=== PATIENT | female | born 1935 | race African-American/Black ===

== ENCOUNTER 2018-02-11 17:38 | Emergency (ER) | payer MEDICARE, BC ==
[2018-02-11 19:26] LABS: #Basophils 0.1 thou/uL (0.0-0.2); #Eosinphils 0.1 thou/uL (0.0-0.7); #Lymphocytes 1.1 thou/uL (1.20-3.40); #Monocytes 0.6 thou/uL (0.11-0.59); #Neutrophils 6.2 thou/uL (1.40-6.50); %Basophils 0.6 % (0.0-1.0); %Eosinophils 1.7 % (0.0-10.0); %Lymphocytes 13.5 % (21.0-51.0); %Monocytes 7.2 % (0.0-10.0); %Neutrophils 76.9 % (42.0-75.0); Hemoglobin 13.9 g/dL (12.0-16.0); Mean Corpuscular HGB CONC 33.1 g/dL (32.0-36.0); Mean Corpuscular Hemoglobin 31.1 pg (27.0-31.0); Platelet Count 347 thou/uL (130-400); RBC Distribution Width 12.6 % (11.5-14.5); Red Blood Cell (RBC) Count 4.48 mill/uL (4.20-5.40); White Blood Cell (WBC) Count 8.1 thou/uL (4.8-10.8)
[2018-02-11 19:47] LABS: ALT (SGPT) 26 U/L (8-55); AST (SGOT) 39 U/L (5-34); Alkaline Phosphatase 122 U/L (40-150); Anion Gap 14 mmol/L (10-20); BUN (Urea Nitrogen) 28 mg/dL (9.8-20.1); Bilirubin, Total 0.3 mg/dL (0.2-1.2); Calc. Creatinine Clearance 0 mL/min (70-130); Calcium 10.2 mg/dL (7.8-10.44); Carbon Dioxide 29 mmol/L (23-31); Chloride 104 mmol/L (98-107); Estimated GFR-MDRD 59; Globulin 3.8 g/dL (2.4-3.5); Glucose 142 mg/dL (83-110); Potassium 3.9 mmol/L (3.5-5.1); Protein, Total 7.8 g/dL (6.0-8.3); Sodium 143 mmol/L (136-145)
[2018-02-11 19:50] LABS: CKMB 4.7 ng/mL (0-6.6); Troponin I Less than 0.010 ng/mL (< 0.028)
--- NOTE | 2018-02-11 19:52 | RAD ---
PORTABLE UPRIGHT FRONTAL CHEST RADIOGRAPH 02/11/18 COMPARISON: 08/31/16. HISTORY: Altered mental status. FINDINGS: Inspiration is shallow, leading to crowding of the bronchopulmonary vasculature. There is mild increa sed density in the right infrahilar region which may signify vascular prominence or volume loss. Foca l infiltrate is less likely. No pneumothorax, lobar consolidation or alveolar edema. IMPRESSION: Shallow inspiration with mild increased density in the medial right lung base/right cardiophrenic ang le. No lobar consolidation or alveolar edema. POS: [facility]
--- NOTE | 2018-02-11 20:01 | CT ---
CT OF BRAIN PERFORMED WITHOUT CONTRAST ENHANCEMENT: 02/11/18 HISTORY: Altered mental status. COMPARISON: 05/14/09 exam and 03/13/12 study. The ventricular and cisternal system shows some mild atrophy. There is decreased attenuation of the p eriventricular white matter. Consistent with chronic ischemic white matter change. There is no signs of intracerebral hemorrhage or extra-axial fluid collections. The mastoid air cells and visualized si nuses appear clear. IMPRESSION: No acute intracranial abnormalities. POS: [facility]
[2018-02-11 20:26] LABS: Bilirubin Negative (Negative); Blood, Urine Negative (Negative); Clarity CLOUDY (Clear); Glucose, Urine (Dipstick) Negative (Negative); Leukocyte Small (Negative); Nitrite Negative (Negative); Protein, Urine (Dipstick) Negative (Neg-Trace); Specific Gravity, Urine 1.015 (1.002-1.036); Urobilinogen 0.2 mg/dL (0.2-1.0)
[2018-02-11 20:28] LABS: Bacteria/HPF 1+ HPF (None Seen); Hyaline Casts/LPF 0-3 HYALINE CAST LPF (0-3 Hyaline); Pathc Cast-AUWi Flag 0.14 (0-2.49)
[2018-02-11 20:31] LABS: RBC/HPF 0-3 HPF (0-3); Renal Epithelial None Seen HPF (0-3); Transitional Epithelial NONE SEEN HPF (0-3)
[2018-02-11] MEDS ORDERED: cefTRIAXone\\ROCEPHIN 2 GM VIAL ONE (21:03)
[2018-02-11] MEDS ORDERED: Lidocaine 1% (PF) 30 ML VIAL ONE (21:03)
[2018-02-11] MEDS ORDERED: cefTRIAXone\\ROCEPHIN 1 GM VIAL ONE (21:11)
== END 2018-02-11 22:10 ==
LOC: ERS 17:38
DX: N39.0 Urinary tract infection, site not specified (principal); G30.9 Alzheimer's disease, unspecified; F02.80 Dementia in other diseases classified elsewhere, unspecified severity, without behavioral disturbance, psychotic disturbance, mood disturbance, and anxiety; I10 Essential (primary) hypertension; F41.9 Anxiety disorder, unspecified; Z79.82 Long term (current) use of aspirin; Z79.899 Other long term (current) drug therapy; Z79.891 Long term (current) use of opiate analgesic
CPT/HCPCS: 36415; 51701; 70450; 71045; 80053; 81003; 81015; 82553; 84484; 85025; 87040; 87077; 87086; 87186; 93005; 96372; A4353; J0696; J2001

== ENCOUNTER 2018-03-25 18:51 | Emergency (ER) | payer MEDICARE, BC ==
[2018-03-25 20:26] LABS: #Basophils 0.1 thou/uL (0.0-0.2); #Eosinphils 0.2 thou/uL (0.0-0.7); #Lymphocytes 1.6 thou/uL (1.20-3.40); #Monocytes 0.6 thou/uL (0.11-0.59); #Neutrophils 5.1 thou/uL (1.40-6.50); %Basophils 0.8 % (0.0-1.0); %Eosinophils 2.7 % (0.0-10.0); %Monocytes 7.5 % (0.0-10.0); %Neutrophils 67.9 % (42.0-75.0); Hemoglobin 12.7 g/dL (12.0-16.0); Mean Corpuscular HGB CONC 32.7 g/dL (32.0-36.0); Mean Corpuscular Hemoglobin 30.8 pg (27.0-31.0); Mean Corpuscular Volume 94.1 fL (78.0-98.0); Mean Platelet Volume 6.7 fL (7.4-10.4); Platelet Count 330 thou/uL (130-400); RBC Distribution Width 12.7 % (11.5-14.5); Red Blood Cell (RBC) Count 4.13 mill/uL (4.20-5.40); White Blood Cell (WBC) Count 7.4 thou/uL (4.8-10.8)
--- NOTE | 2018-03-25 20:34 | RAD ---
PORTABLE CHEST 03/25/18 PROVIDED CLINICAL HISTORY: Syncope. FINDINGS: Comparison 02/11/18. The lungs are hypoinflated, limiting evaluation. The cardiac silhouette appears enlarged which may be at least in part on the basis of technical factors. Bibasilar parenchymal opacities may reflect subs egmental atelectasis or infiltrate. No evidence for pneumothorax or large effusion. IMPRESSION: Hypoinflated exam. POS: [facility]
[2018-03-25 20:44] LABS: ALT (SGPT) 13 U/L (8-55); AST (SGOT) 17 U/L (5-34); Albumin 3.8 g/dL (3.4-4.8); Alkaline Phosphatase 118 U/L (40-150); Anion Gap 12 mmol/L (10-20); BUN (Urea Nitrogen) 27 mg/dL (9.8-20.1); Bilirubin, Total 0.2 mg/dL (0.2-1.2); Calc. Creatinine Clearance 0 mL/min (70-130); Carbon Dioxide 33 mmol/L (23-31); Chloride 101 mmol/L (98-107); Estimated GFR-MDRD 36; Globulin 3.2 g/dL (2.4-3.5); Glucose 192 mg/dL (83-110); Potassium 4.4 mmol/L (3.5-5.1); Sodium 142 mmol/L (136-145)
[2018-03-25 21:51] LABS: Bilirubin Negative (Negative); Blood, Urine Negative (Negative); Clarity CLEAR (Clear); Glucose, Urine (Dipstick) Negative (Negative); Leukocyte Small (Negative); Nitrite Negative (Negative); Protein, Urine (Dipstick) Negative (Neg-Trace); Urobilinogen 0.2 mg/dL (0.2-1.0); pH, Urine 6.5 (5.0-9.0)
[2018-03-25 21:53] LABS: Bacteria/HPF None Seen HPF (None Seen); Hyaline Casts/LPF 0-3 HYALINE CAST LPF (0-3 Hyaline); Pathc Cast-AUWi Flag 2.76 (0-2.49); WBC/HPF 0-3 HPF (0-3)
--- NOTE | 2018-03-25 22:16 | CT ---
CT BRAIN 03/25/18 PROVIDED CLINICAL HISTORY: Syncope. FINDINGS: Comparison 02/11/18. The ventricular system appears normal in size and morphology. There is no evidence for intracranial hemorrhage or mass effect. Chronic microvascular ischemic changes involving the cerebral white matte r are redemonstrated. The extracranial soft tissues and osseous structures demonstrate no evidence fo r an acute process. IMPRESSION: No evidence for intracranial hemorrhage or mass effect. POS: [facility]
== END 2018-03-25 23:33 ==
LOC: ERS 18:51
DX: R55 Syncope and collapse (principal); I10 Essential (primary) hypertension; G30.9 Alzheimer's disease, unspecified; F02.80 Dementia in other diseases classified elsewhere, unspecified severity, without behavioral disturbance, psychotic disturbance, mood disturbance, and anxiety; F03.90 Unspecified dementia, unspecified severity, without behavioral disturbance, psychotic disturbance, mood disturbance, and anxiety; F41.9 Anxiety disorder, unspecified; Z79.82 Long term (current) use of aspirin; Z79.899 Other long term (current) drug therapy
CPT/HCPCS: 36415; 70450; 71045; 80053; 81003; 81015; 84484; 85025; 93005

== ENCOUNTER 2018-04-19 10:31 | Emergency (ER) | payer MEDICARE, BC ==
[2018-04-19 11:55] LABS: #Basophils 0.1 thou/uL (0.0-0.2); #Lymphocytes 1.4 thou/uL (1.20-3.40); #Monocytes 0.6 thou/uL (0.11-0.59); #Neutrophils 9.5 thou/uL (1.40-6.50); %Basophils 0.5 % (0.0-1.0); %Eosinophils 0.3 % (0.0-10.0); %Lymphocytes 12.2 % (21.0-51.0); %Monocytes 5.1 % (0.0-10.0); %Neutrophils 81.9 % (42.0-75.0); Hemoglobin 13.6 g/dL (12.0-16.0); Mean Corpuscular HGB CONC 31.8 g/dL (32.0-36.0); Mean Corpuscular Hemoglobin 30.1 pg (27.0-31.0); Mean Corpuscular Volume 94.8 fL (78.0-98.0); Mean Platelet Volume 7.1 fL (7.4-10.4); Platelet Count 340 thou/uL (130-400); RBC Distribution Width 12.6 % (11.5-14.5); Red Blood Cell (RBC) Count 4.52 mill/uL (4.20-5.40); White Blood Cell (WBC) Count 11.6 thou/uL (4.8-10.8)
[2018-04-19 12:13] LABS: Bilirubin Negative (Negative); Blood, Urine Negative (Negative); Clarity CLEAR (Clear); Glucose, Urine (Dipstick) Negative (Negative); Leukocyte Trace (Negative); Nitrite Negative (Negative); Protein, Urine (Dipstick) Negative (Neg-Trace); Urobilinogen 0.2 mg/dL (0.2-1.0)
[2018-04-19 12:16] LABS: Bacteria/HPF None Seen HPF (None Seen); Hyaline Casts/LPF 4-6 HYALINE CAST LPF (0-3 Hyaline); Pathc Cast-AUWi Flag 1.16 (0-2.49); Squamous Epithelial 0-3 HPF (0-3); WBC/HPF None Seen HPF (0-3)
[2018-04-19 12:20] LABS: ALT (SGPT) 18 U/L (8-55); AST (SGOT) 40 U/L (5-34); Albumin 4.3 g/dL (3.4-4.8); Alkaline Phosphatase 122 U/L (40-150); Anion Gap 13 mmol/L (10-20); BUN (Urea Nitrogen) 33 mg/dL (9.8-20.1); Bilirubin, Total 0.5 mg/dL (0.2-1.2); Calc. Creatinine Clearance 0 mL/min (70-130); Calcium 10.5 mg/dL (7.8-10.44); Carbon Dioxide 30 mmol/L (23-31); Chloride 101 mmol/L (98-107); Estimated GFR-MDRD 39; Globulin 3.6 g/dL (2.4-3.5); Glucose 150 mg/dL (83-110); Protein, Total 7.9 g/dL (6.0-8.3); Sodium 139 mmol/L (136-145)
--- NOTE | 2018-04-19 12:57 | RAD ---
PORTABLE CHEST: Date: 04/19/18 HISTORY: Low grade fever, hypoxia. COMPARISON: 03/25/18. FINDINGS: Heart size is borderline. There are bibasilar atelectatic lung changes seen. No signs of failure. IMPRESSION: Bibasilar atelectasis. POS: [facility]
== END 2018-04-19 13:21 ==
LOC: ERS 10:31
DX: F03.90 Unspecified dementia, unspecified severity, without behavioral disturbance, psychotic disturbance, mood disturbance, and anxiety (principal); I12.9 Hypertensive chronic kidney disease with stage 1 through stage 4 chronic kidney disease, or unspecified chronic kidney disease; N18.9 Chronic kidney disease, unspecified; F41.9 Anxiety disorder, unspecified; E11.9 Type 2 diabetes mellitus without complications; Z79.82 Long term (current) use of aspirin; Z79.899 Other long term (current) drug therapy
CPT/HCPCS: 51701; 71045; 80053; 81003; 81015; 83605; 84484; 85025; 87804; 93005; A4353

== ENCOUNTER 2018-05-15 09:09 | Inpatient (IN) | payer MEDICARE, BC ==
--- NOTE | 2018-05-15 09:52 | RAD ---
SINGLE VIEW CHEST: Date: 05/15/18 COMPARISON: 04/19/18. HISTORY: Right-sided facial drooping with slurred speech and altered mental status. FINDINGS: Single view of the chest shows a normal sized cardiomediastinal silhouette. There is no evidence of c onsolidation, mass, or pleural effusion. The bones are unremarkable. IMPRESSION: No evidence of acute cardiopulmonary disease. POS: [facility]
[2018-05-15 10:03] LABS: Bilirubin Negative (Negative); Blood, Urine Negative (Negative); Clarity CLOUDY (Clear); Glucose, Urine (Dipstick) 100 mg/dL (Negative); Leukocyte Negative (Negative); Nitrite Negative (Negative); Protein, Urine (Dipstick) Trace mg/dL (Neg-Trace); Urobilinogen 0.2 mg/dL (0.2-1.0)
[2018-05-15 10:08] LABS: ALT (SGPT) 21 U/L (8-55); AST (SGOT) 20 U/L (5-34); Acetaminophen Less than 6.0 mcg/mL (10.0-30.0); Albumin 3.7 g/dL (3.4-4.8); Alcohol Less than 10 mg/dL (Less than 10); Alkaline Phosphatase 123 U/L (40-150); Anion Gap 13 mmol/L (10-20); BUN (Urea Nitrogen) 19 mg/dL (9.8-20.1); Bilirubin, Total 0.2 mg/dL (0.2-1.2); CK (CPK) 56 U/L (29-168); Calc. Creatinine Clearance 0 mL/min (70-130); Calcium 9.7 mg/dL (7.8-10.44); Carbon Dioxide 27 mmol/L (23-31); Chloride 103 mmol/L (98-107); Estimated GFR-MDRD 49; Globulin 3.2 g/dL (2.4-3.5); Glucose 220 mg/dL (83-110); Potassium 4.3 mmol/L (3.5-5.1); Protein, Total 6.9 g/dL (6.0-8.3); Salicylate Less than 8.0 mg/dL (15.0-30.0); Sodium 139 mmol/L (136-145)
[2018-05-15 10:11] LABS: Amphetamine Not Detected (NotDetected); Barbiturates Screen Not Detected (NotDetected); Benzodiazepine Screen Not Detected (NotDetected); Cocaine Metabolite Screen Not Detected (NotDetected); Medtox Control Line Valid? VALID (VALID); Medtox Reader # READER 4; Methadone Not Detected (NotDetected); Methamphetamine Not Detected (NotDetected); Opiate Screen Not Detected (NotDetected); Oxycodone Screen Not Detected (NotDetected); Phencyclidine (PCP) Not Detected (NotDetected); THC/Cannabinoid Screen Not Detected (NotDetected); Tricyclic Screen Not Detected (NotDetected)
[2018-05-15 10:45] LABS: #Lymphocytes 0.5 thou/uL (1.20-3.40); #Monocytes 0.7 thou/uL (0.11-0.59); #Neutrophils 7.9 thou/uL (1.40-6.50); %Basophils 0.3 % (0.0-1.0); %Eosinophils 0.2 % (0.0-10.0); %Lymphocytes 5.2 % (21.0-51.0); %Monocytes 7.7 % (0.0-10.0); %Neutrophils 86.7 % (42.0-75.0); Hemoglobin 12.8 g/dL (12.0-16.0); Mean Corpuscular HGB CONC 32.7 g/dL (32.0-36.0); Mean Corpuscular Hemoglobin 30.4 pg (27.0-31.0); Mean Corpuscular Volume 92.9 fL (78.0-98.0); Mean Platelet Volume 7.3 fL (7.4-10.4); Platelet Count 303 thou/uL (130-400); RBC Distribution Width 12.6 % (11.5-14.5); Red Blood Cell (RBC) Count 4.22 mill/uL (4.20-5.40); White Blood Cell (WBC) Count 9.1 thou/uL (4.8-10.8)
--- NOTE | 2018-05-15 10:48 | CT ---
HEAD CT WITHOUT CONTRAST: Date: 05/15/18 HISTORY: Altered mental status. Right-sided facial droop. Stroke alert. COMPARISON: 03/25/18. FINDINGS: No parenchymal hemorrhage or extra-axial hematoma. No midline shift. Basilar cisterns are patent. Age -appropriate atrophy. Cortical rubio-white matter differentiation is preserved. No evidence of hydroce phalus. Stable white matter Hypointensities due to chronic small vessel ischemic change. Calvarium is intact. Adequate aeration of the mastoid air cells. There is sphenoid sinus disease. Cav ernous carotid atherosclerosis is noted. IMPRESSION: No acute intracranial process. Results of study discussed with Dr. Umanzor on 05/15/18 at 0952 hours. CODE CR. POS: [facility]
[2018-05-15 10:53] LABS: INR-International Normal Ratio 1.1; Prothrombin Time 13.8 SEC (12.0-14.7)
[2018-05-15 13:43] LABS: Lactic Acid 2.7 mmol/L (0.5-2.2)
[2018-05-15] MEDS ORDERED: Ondansetron PF 4 MG/2 ML Vial IVP PRN (13:52)
[2018-05-15] MEDS ORDERED: Ondansetron ODT 4 MG TAB PO PRN (13:52)
[2018-05-15] MEDS ORDERED: Acetaminophen 325 MG TAB PO PRN (13:53)
[2018-05-15] MEDS ORDERED: Sodium Chloride 0.9% 1,000 ML IV SCH (14:00)
[2018-05-15] MEDS ORDERED: Senokot S 8.6-50 MG TAB PO PRN (15:51)
[2018-05-15] MEDS ORDERED: Bisacodyl 5 MG TAB PO PRN (15:51)
[2018-05-15] MEDS: Sodium Chloride 0.9% 1,000 ML IV SCH (16:01)
[2018-05-15 16:11] VITALS: BMI 27.5
[2018-05-15] MEDS: Mirtazapine 15 MG TAB PO SCH (20:44)
[2018-05-15] MEDS ORDERED: Ciprofloxacin 500 MG TAB PO SCH (21:00)
--- NOTE | 2018-05-15 23:15 | HP ---
CHIEF COMPLAINT: Right-sided facial droop and slurred speech. HISTORY OF PRESENT ILLNESS: The patient is an 83-year-old female who is a [facility] resident who has a history of dementia, limited history, since the patient is unable to provide any history, there is no family member around, who was sent to the ER for evaluation for right-sided facial droop and slurred speech. Per EMS, it was also noted that the patient had a headache. However, EMS reported that the patient was alert and oriented x1, which they report is the baseline for her. In the ER, she was evaluated for possible stroke. However, due to her dementia, doing an NIH score was limited. The patient, however, was able to move all 4 extremities and the ER physician did not think that she had any acute processes in regard for stroke. A CT head was negative in the ER and also she was out of the window period for any other intervention. PAST MEDICAL HISTORY: 1. She has a history of dementia. 2. Diabetes, type 2, controlled. 3. Chronic UTIs. 4. Hypertension. PAST SURGICAL HISTORY: Unable to obtain since the patient is unable to provide that. SOCIAL HISTORY: Per records no history of alcohol use, drug use, or smoking history. She is currently a [facility] resident. I do not know what her code status is currently. REVIEW OF SYSTEMS: Unable to obtain. MEDICATIONS: 1. She is on risperidone 0.25 mg daily. 2. MiraLAX 17 g p.o. daily. 3. Cipro 500 mg once per day for 7 days. 4. Namenda 10 mg b.i.d. 5. Gabapentin 300 mg t.i.d. 6. Colace 100 mg daily. 7. Remeron 15 mg daily. 8. Cartia 120 mg daily. 9. Aspirin 81 mg daily. ALLERGIES: NO KNOWN DRUG ALLERGIES. PHYSICAL EXAMINATION: VITAL SIGNS: As of the following; temperature of 98.7, pulse 97, respiratory rate 20, saturation 97% on room air, blood pressure 143/83. GENERAL: She is awake, alert, oriented to self. CV: S1, S2 present. No murmurs, rubs, or gallops. HEENT: Normocephalic, atraumatic. Pupils are equal and reactive to light. LUNGS: Clear to auscultation. No rhonchi or wheezes noted. ABDOMEN: Soft, nontender. Bowel sounds are present x2. EXTREMITIES: No edema. Pedal pulses are present x2. NEUROVASCULAR: She is able to move all 4 extremities. She is alert and oriented only to self. SKIN: No cuts, lesions, or bruises noted. LABORATORY RESULTS: Her urine is completely normal. Chemistry; sodium of 139, potassium of 4.3, BUN of 19, creatinine of 1.26, glucose of 220, lactic acid of 2.7. Troponin x2 were negative. Hematology; WBC of 9.1, hemoglobin of 12.8, hematocrit of 39.2, platelets of 303. The patient had a CT head, which was negative. She also had a chest x-ray which did not indicate any acute abnormalities. ASSESSMENT AND PLAN: The patient is a very pleasant 83-year-old female who is admitted to the hospital for right facial droop. 1. Dehydration. The patient did have an elevated lactic acid. However, the urine that was collected in the ER was normal. Upon reviewing her medication records, she was on ciprofloxacin. We will clarify with the [facility] if she was recently treated for a urinary tract infection. Clinically, she appears to be at baseline, however, her NIH score is limited due to her dementia. CT head was negative. May consider getting an MRI brain for further evaluation. 2. Diabetes. We will continue to monitor Accu-Cheks before meals and at bedtime. 3. Hypertension. We will continue home medications. 4. Dementia. We will ask family in regard to patient's code status. 5. Deep venous thrombosis prophylaxis. We will put the patient on subcu heparin. Job ID: [id number]
[2018-05-16] MEDS: Sodium Chloride 0.9% 1,000 ML IV SCH ×2 (02:03→14:10)
[2018-05-16] MEDS ORDERED: traMADol HCl 50 MG TAB PO PRN (08:08)
[2018-05-16] MEDS ORDERED: Potassium Chloride 20 MEQ TAB PO SCH (08:30)
[2018-05-16] MEDS: risperiDONE 0.25 MG TAB PO SCH ×2 (08:38→20:06)
[2018-05-16] MEDS: Polyethylene Glycol 3350 17 GM Packet PO SCH (08:38)
[2018-05-16] MEDS: Magnesium Oxide 400 MG TAB PO SCH ×2 (08:38→20:09)
[2018-05-16] MEDS: Gabapentin 300 MG CAP PO SCH ×3 (08:38→20:08)
[2018-05-16] MEDS: Multivitamin W/ Minerals 1 TAB PO SCH (08:38)
[2018-05-16] MEDS: Venlafaxine HCl XR 150 MG CAP PO SCH (08:39)
[2018-05-16] MEDS: Aspirin Chewable 81 MG TAB PO SCH (08:39)
[2018-05-16] MEDS: Acetaminophen 325 MG TAB PO PRN (08:39)
[2018-05-16 08:41] LABS: #Basophils 0.1 thou/uL (0.0-0.2); #Lymphocytes 0.9 thou/uL (1.20-3.40); %Basophils 0.7 % (0.0-1.0); %Eosinophils 0.7 % (0.0-10.0); %Lymphocytes 13.3 % (21.0-51.0); %Monocytes 13.7 % (0.0-10.0); %Neutrophils 71.6 % (42.0-75.0); Hemoglobin 13.1 g/dL (12.0-16.0); Mean Corpuscular HGB CONC 32.7 g/dL (32.0-36.0); Mean Corpuscular Hemoglobin 30.7 pg (27.0-31.0); Mean Corpuscular Volume 93.8 fL (78.0-98.0); Mean Platelet Volume 7.2 fL (7.4-10.4); Platelet Count 288 thou/uL (130-400); RBC Distribution Width 12.4 % (11.5-14.5); Red Blood Cell (RBC) Count 4.28 mill/uL (4.20-5.40)
[2018-05-16] MEDS ORDERED: Prevnar 13-Val Conj/PF 0.5 ML SYRINGE IM ONE (09:00)
[2018-05-16 09:01] LABS: Anion Gap 14 mmol/L (10-20); BUN (Urea Nitrogen) 11 mg/dL (9.8-20.1); Calc. Creatinine Clearance 47 mL/min (70-130); Calcium 8.6 mg/dL (7.8-10.44); Carbon Dioxide 25 mmol/L (23-31); Chloride 99 mmol/L (98-107); Estimated GFR-MDRD 71; Glucose 162 mg/dL (83-110); Potassium 3.1 mmol/L (3.5-5.1); Sodium 135 mmol/L (136-145)
--- NOTE | 2018-05-16 12:19 | PDOC.PN ---
- Subjective Encounter Start Date: 05/16/18 Encounter Start Time: 09:20 -: old records requested/rev Patient seen and examined. No new complaints. No overnight events - Objective Resuscitation Status - Order Detail: 05/15/18 15:51 Resuscitation Status Routine Resuscitation Status: FULL: Full Resuscitation MAR Reviewed: Yes Vital Signs & Weight: Vital Signs (12 hours) Temp Pulse Resp BP Pulse Ox 05/16/18 07:31 97.6 F 79 20 133/74 93 L 05/16/18 04:00 97.4 F L 93 18 148/79 H 92 L Weight Weight 145 lb 8 oz I&O: 05/15/18 05/16/18 05/17/18 06:59 06:59 06:59 Intake Total 401 Balance 401 Result Diagrams: 05/16/18 07:45 05/16/18 07:45 Phys Exam - Physical Examination Constitutional: NAD HEENT: PERRLA, moist MMs, sclera anicteric Neck: no JVD, supple Respiratory: no wheezing, no rales, no rhonchi Cardiovascular: RRR, no significant murmur, no rub Gastrointestinal: soft, non-tender, no distention Musculoskeletal: no edema, pulses present Neurological: non-focal, normal sensation Lymphatic: no nodes Psychiatric: normal affect, A&O x 3 Skin: no rash, normal turgor Dx/Plan (1) Dehydration Code(s): E86.0 - DEHYDRATION Status: Acute (2) Lactic acidosis Code(s): E87.2 - ACIDOSIS Status: Acute (3) Alzheimer's dementia Code(s): G30.9 - ALZHEIMER'S DISEASE, UNSPECIFIED; F02.80 - DEMENTIA IN OTH DISEASES CLASSD ELSWHR W/O BEHAVRL DISTURB Status: Chronic (4) Anxiety and depression Code(s): F41.9 - ANXIETY DISORDER, UNSPECIFIED; F32.9 - MAJOR DEPRESSIVE DISORDER, SINGLE EPISODE, UNSPECIFIED Status: Chronic - Plan cont current plan of care * medication reviewed as below * symptomatic treatment * stable for discharge back to [facility]. Review of Systems - Review of Systems Other: not reliable due to dementia - Medications/Allergies Allergies/Adverse Reactions: Allergies Allergy/AdvReac Type Severity Reaction Status Date / Time No Known Drug Allergies Allergy Verified 05/15/18 16:20 Medications: Current Medications Acetaminophen (Tylenol) 650 mg PO Q4H PRN PRN Reason: Headache/Fever/Mild Pain (1-3) Last Admin: 05/16/18 08:39 Dose: 650 mg Aspirin (Aspirin Chewable) 81 mg PO DAILY [facility] Last Admin: 05/16/18 08:39 Dose: 81 mg Bisacodyl (Dulcolax) 10 mg PO DAILYPRN PRN PRN Reason: Constipation Cholecalciferol (Vitamin D3) 5,000 units PO DAILY [facility] Last Admin: 05/16/18 09:39 Dose: 5,000 units Diltiazem HCl (Cardizem Cd) 120 mg PO QPM-[facility] Last Admin: 05/15/18 17:17 Dose: 120 mg Docusate Sodium (Colace) 100 mg PO [facility] Gabapentin (Neurontin) 300 mg PO TID [facility] Last Admin: 05/16/18 08:38 Dose: 300 mg Galantamine Hydrobromide (Razadyne) 16 mg PO QPM-[facility] Last Admin: 05/15/18 17:18 Dose: 16 mg Sodium Chloride (Normal Saline 0.9%) 1,000 mls @ 100 mls/hr IV .Q10H [facility] Last Admin: 05/16/18 02:03 Dose: 1,000 mls Iron/Minerals/Multivitamins (Theragran M) 1 tab PO DAILY [facility] Last Admin: 05/16/18 08:38 Dose: 1 tab Magnesium Oxide (Magnesium Oxide) 400 mg PO BID [facility] Last Admin: 05/16/18 08:38 Dose: 400 mg Memantine (Namenda) 10 mg PO BID[facility] Last Admin: 05/16/18 08:38 Dose: 10 mg Mirtazapine (Remeron) 15 mg PO [facility] Last Admin: 05/15/18 20:44 Dose: 15 mg Polyethylene Glycol (Miralax) 17 gm PO DAILY [facility] Last Admin: 05/16/18 08:38 Dose: 17 gm Potassium Chloride (K-Dur) 20 meq PO TID-[facility] Risperidone (Risperidone) 0.25 mg PO BID [facility] Last Admin: 05/16/18 08:38 Dose: 0.25 mg Senna/Docusate Sodium (Senokot S) 2 tab PO BID PRN PRN Reason: Constipation Sodium Chloride (Flush - Normal Saline) 10 ml IVF Q12HR [facility] Last Admin: 05/16/18 08:39 Dose: 10 ml Sodium Chloride (Flush - Normal Saline) 10 ml IVF PRN PRN PRN Reason: Saline Flush Tramadol HCl (Ultram) 50 mg PO Q6H PRN PRN Reason: PAIN >4 Venlafaxine HCl (Effexor Xr) 150 mg PO DAILY [facility] Last Admin: 05/16/18 08:39 Dose: 150 mg
[2018-05-16] MEDS: Potassium Chloride 20 MEQ TAB PO SCH ×2 (14:10→16:55)
[2018-05-16] MEDS: Mirtazapine 15 MG TAB PO SCH (20:08)
[2018-05-16] MEDS: Docusate 100 MG CAP PO SCH (20:09)
[2018-05-17] MEDS: Sodium Chloride 0.9% 1,000 ML IV SCH (02:30)
[2018-05-17] MEDS: Acetaminophen 325 MG TAB PO PRN ×2 (05:50→18:43)
[2018-05-17] MEDS: Polyethylene Glycol 3350 17 GM Packet PO SCH (08:07)
[2018-05-17] MEDS: Multivitamin W/ Minerals 1 TAB PO SCH (08:07)
[2018-05-17] MEDS: Potassium Chloride 20 MEQ TAB PO SCH ×3 (08:07→17:13)
[2018-05-17] MEDS: Venlafaxine HCl XR 150 MG CAP PO SCH (08:07)
[2018-05-17] MEDS: risperiDONE 0.25 MG TAB PO SCH ×2 (08:08→20:12)
[2018-05-17] MEDS: Gabapentin 300 MG CAP PO SCH ×3 (08:08→20:12)
[2018-05-17] MEDS: Aspirin Chewable 81 MG TAB PO SCH (08:08)
[2018-05-17] MEDS: Magnesium Oxide 400 MG TAB PO SCH ×2 (08:08→20:12)
[2018-05-17 08:16] LABS: #Eosinphils 0.1 thou/uL (0.0-0.7); #Lymphocytes 0.8 thou/uL (1.20-3.40); #Monocytes 0.8 thou/uL (0.11-0.59); #Neutrophils 6.2 thou/uL (1.40-6.50); %Basophils 0.4 % (0.0-1.0); %Eosinophils 0.7 % (0.0-10.0); %Lymphocytes 10.5 % (21.0-51.0); %Monocytes 10.1 % (0.0-10.0); %Neutrophils 78.3 % (42.0-75.0); Hemoglobin 12.6 g/dL (12.0-16.0); Mean Corpuscular Hemoglobin 30.4 pg (27.0-31.0); Mean Corpuscular Volume 91.9 fL (78.0-98.0); Mean Platelet Volume 7.2 fL (7.4-10.4); Platelet Count 276 thou/uL (130-400); RBC Distribution Width 12.4 % (11.5-14.5); Red Blood Cell (RBC) Count 4.15 mill/uL (4.20-5.40); White Blood Cell (WBC) Count 7.9 thou/uL (4.8-10.8)
[2018-05-17 08:30] LABS: Lactic Acid 0.8 mmol/L (0.5-2.2)
[2018-05-17 08:32] LABS: Anion Gap 13 mmol/L (10-20); BUN (Urea Nitrogen) 14 mg/dL (9.8-20.1); Calc. Creatinine Clearance 51 mL/min (70-130); Calcium 8.5 mg/dL (7.8-10.44); Carbon Dioxide 24 mmol/L (23-31); Chloride 103 mmol/L (98-107); Estimated GFR-MDRD 78; Glucose 156 mg/dL (83-110); Magnesium 1.7 mg/dL (1.6-2.6); Phosphorus 2.9 mg/dL (2.3-4.7); Potassium 3.4 mmol/L (3.5-5.1); Sodium 137 mmol/L (136-145)
[2018-05-17] MEDS: cefTRIAXone\\ROCEPHIN 1 GM in Sodium Chloride 0.9% 100 ML IVPB SCH (08:59)
--- NOTE | 2018-05-17 09:48 | PDOC.PN ---
- Subjective Encounter Start Date: 05/17/18 Encounter Start Time: 08:30 pt is getting septic, still altered, had high fever, has cough, - Objective Resuscitation Status - Order Detail: 05/15/18 15:51 Resuscitation Status Routine Resuscitation Status: FULL: Full Resuscitation MAR Reviewed: Yes Vital Signs & Weight: Vital Signs (12 hours) Temp Pulse Resp BP Pulse Ox 05/17/18 07:18 99.1 F 83 20 154/77 H 94 L 05/17/18 06:44 99.3 F 05/17/18 05:00 101.7 F H 05/17/18 04:00 99.7 F H 89 16 138/77 90 L 05/17/18 00:00 99.5 F 89 16 169/66 H 94 L Weight Weight 145 lb 8 oz I&O: 05/16/18 05/17/18 05/18/18 06:59 06:59 06:59 Intake Total 401 2300 Balance 401 2300 Result Diagrams: 05/17/18 07:58 05/17/18 07:58 Phys Exam - Physical Examination Constitutional: NAD HEENT: PERRLA, moist MMs, sclera anicteric Neck: no JVD, supple coarse sound+ Cardiovascular: RRR, no significant murmur, no rub Gastrointestinal: soft, non-tender, no distention, positive bowel sounds Musculoskeletal: no edema, pulses present Neurological: non-focal, normal sensation Lymphatic: no nodes Psychiatric: normal affect Skin: no rash, normal turgor Dx/Plan (1) Encephalopathy in sepsis Code(s): G93.41 - METABOLIC ENCEPHALOPATHY Status: Acute (2) Lactic acidosis Code(s): E87.2 - ACIDOSIS Status: Acute (3) Sepsis Code(s): A41.9 - SEPSIS, UNSPECIFIED ORGANISM Status: Acute (4) Dehydration Code(s): E86.0 - DEHYDRATION Status: Acute (5) Alzheimer's dementia Code(s): G30.9 - ALZHEIMER'S DISEASE, UNSPECIFIED; F02.80 - DEMENTIA IN OTH DISEASES CLASSD ELSWHR W/O BEHAVRL DISTURB Status: Chronic (6) Anxiety and depression Code(s): F41.9 - ANXIETY DISORDER, UNSPECIFIED; F32.9 - MAJOR DEPRESSIVE DISORDER, SINGLE EPISODE, UNSPECIFIED Status: Chronic - Plan cont current plan of care, continue antibiotics * start rocephin and levaquin * do blood culture * will change to inpt status, as pt has no improvement * will DC IVF * medication reviewed as below * symptomatic treatment. Review of Systems - Review of Systems Constitutional: fever. negative: chills, sweats, weakness, malaise, other ENT: negative: Ear Pain, Ear Discharge, Nose Pain, Nose Discharge, Nose Congestion, Mouth Pain, Mouth Swelling, Throat Pain, Throat Swelling, Other Respiratory: Cough Cardiovascular: negative: chest pain, palpitations, orthopnea, paroxysmal nocturnal dyspnea, edema, light headedness, other Gastrointestinal: negative: Nausea, Vomiting, Abdominal Pain, Diarrhea, Constipation, Melena, Hematochezia, Other Genitourinary: negative: Dysuria, Frequency, Incontinence, Hematuria, Retention , Other Musculoskeletal: negative: Neck Pain, Shoulder Pain, Arm Pain, Back Pain, Hand Pain, Leg Pain, Foot Pain, Other Other: not reliable due to dementia - Medications/Allergies Allergies/Adverse Reactions: Allergies Allergy/AdvReac Type Severity Reaction Status Date / Time No Known Drug Allergies Allergy Verified 05/15/18 16:20 Medications: Current Medications Acetaminophen (Tylenol) 650 mg PO Q4H PRN PRN Reason: Headache/Fever/Mild Pain (1-3) Last Admin: 05/17/18 05:50 Dose: 650 mg Aspirin (Aspirin Chewable) 81 mg PO DAILY [facility] Last Admin: 05/17/18 08:08 Dose: 81 mg Bisacodyl (Dulcolax) 10 mg PO DAILYPRN PRN PRN Reason: Constipation Cholecalciferol (Vitamin D3) 5,000 units PO DAILY [facility] Last Admin: 05/17/18 08:08 Dose: 5,000 units Diltiazem HCl (Cardizem Cd) 120 mg PO QPM-[facility] Last Admin: 05/16/18 16:56 Dose: 120 mg Docusate Sodium (Colace) 100 mg PO HS [facility] Last Admin: 05/16/18 20:09 Dose: 100 mg Gabapentin (Neurontin) 300 mg PO TID [facility] Last Admin: 05/17/18 08:08 Dose: 300 mg Galantamine Hydrobromide (Razadyne) 16 mg PO QPM-[facility] Last Admin: 05/16/18 16:55 Dose: 16 mg Ceftriaxone Sodium 1 gm/ (Sodium Chloride) 100 mls @ 200 mls/hr IVPB 0830 [facility] Last Admin: 05/17/18 08:59 Dose: 100 mls Levofloxacin 500 mg/ Device 100 mls @ 100 mls/hr IVPB 0900 [facility] Last Admin: 05/17/18 09:35 Dose: 100 mls Iron/Minerals/Multivitamins (Theragran M) 1 tab PO DAILY [facility] Last Admin: 05/17/18 08:07 Dose: 1 tab Magnesium Oxide (Magnesium Oxide) 400 mg PO BID [facility] Last Admin: 05/17/18 08:08 Dose: 400 mg Memantine (Namenda) 10 mg PO BID-[facility] Last Admin: 05/17/18 08:08 Dose: 10 mg Mirtazapine (Remeron) 15 mg PO HS [facility] Last Admin: 05/16/18 20:08 Dose: 15 mg Polyethylene Glycol (Miralax) 17 gm PO DAILY [facility] Last Admin: 05/17/18 08:07 Dose: 17 gm Potassium Chloride (K-Dur) 20 meq PO TID-[facility] Last Admin: 05/17/18 08:07 Dose: 20 meq Risperidone (Risperidone) 0.25 mg PO BID [facility] Last Admin: 05/17/18 08:08 Dose: 0.25 mg Senna/Docusate Sodium (Senokot S) 2 tab PO BID PRN PRN Reason: Constipation Sodium Chloride (Flush - Normal Saline) 10 ml IVF Q12HR [facility] Last Admin: 05/17/18 08:09 Dose: 10 ml Sodium Chloride (Flush - Normal Saline) 10 ml IVF PRN PRN PRN Reason: Saline Flush Tramadol HCl (Ultram) 50 mg PO Q6H PRN PRN Reason: PAIN >4 Venlafaxine HCl (Effexor Xr) 150 mg PO DAILY [facility] Last Admin: 05/17/18 08:07 Dose: 150 mg
[2018-05-17] MEDS: Docusate 100 MG CAP PO SCH (20:12)
[2018-05-17] MEDS: Mirtazapine 15 MG TAB PO SCH (20:12)
[2018-05-18] MEDS: cefTRIAXone\\ROCEPHIN 1 GM in Sodium Chloride 0.9% 100 ML IVPB SCH (08:07)
[2018-05-18] MEDS: Polyethylene Glycol 3350 17 GM Packet PO SCH (08:09)
[2018-05-18] MEDS: Magnesium Oxide 400 MG TAB PO SCH ×2 (08:09→20:35)
[2018-05-18] MEDS: risperiDONE 0.25 MG TAB PO SCH ×2 (08:10→20:36)
[2018-05-18] MEDS: Venlafaxine HCl XR 150 MG CAP PO SCH (08:10)
[2018-05-18] MEDS: Gabapentin 300 MG CAP PO SCH ×3 (08:10→20:35)
[2018-05-18] MEDS: Multivitamin W/ Minerals 1 TAB PO SCH (08:10)
[2018-05-18] MEDS: Aspirin Chewable 81 MG TAB PO SCH (08:10)
[2018-05-18] MEDS: Potassium Chloride 20 MEQ TAB PO SCH ×3 (08:10→17:43)
--- NOTE | 2018-05-18 09:31 | PDOC.PN ---
- Subjective Encounter Start Date: 05/18/18 Encounter Start Time: 07:50 Patient seen and examined. No new complaints. No overnight events more alert, talking, baseline confused, no fever - Objective Resuscitation Status - Order Detail: 05/15/18 15:51 Resuscitation Status Routine Resuscitation Status: FULL: Full Resuscitation MAR Reviewed: Yes Vital Signs & Weight: Vital Signs (12 hours) Temp Pulse Resp BP Pulse Ox 05/18/18 07:57 98.4 F 64 18 128/72 94 L 05/18/18 04:00 97.9 F 72 18 131/79 100 05/18/18 00:00 98.1 F 69 18 105/67 97 Weight Weight 145 lb 8 oz I&O: 05/17/18 05/18/18 05/19/18 06:59 06:59 06:59 Intake Total 2300 1420 Output Total 1000 Balance 2300 420 Result Diagrams: 05/17/18 07:58 05/17/18 07:58 Phys Exam - Physical Examination Constitutional: NAD HEENT: PERRLA, moist MMs, sclera anicteric Neck: no JVD, supple Respiratory: no wheezing, no rales, no rhonchi Cardiovascular: RRR, no significant murmur, no rub Gastrointestinal: soft, non-tender, no distention, positive bowel sounds Musculoskeletal: no edema, pulses present Neurological: non-focal Lymphatic: no nodes Psychiatric: normal affect Skin: no rash, normal turgor Dx/Plan (1) Encephalopathy in sepsis Code(s): G93.41 - METABOLIC ENCEPHALOPATHY Status: Acute (2) Lactic acidosis Code(s): E87.2 - ACIDOSIS Status: Acute (3) Sepsis Code(s): A41.9 - SEPSIS, UNSPECIFIED ORGANISM Status: Acute (4) Dehydration Code(s): E86.0 - DEHYDRATION Status: Acute (5) Alzheimer's dementia Code(s): G30.9 - ALZHEIMER'S DISEASE, UNSPECIFIED; F02.80 - DEMENTIA IN OTH DISEASES CLASSD ELSWHR W/O BEHAVRL DISTURB Status: Chronic (6) Anxiety and depression Code(s): F41.9 - ANXIETY DISORDER, UNSPECIFIED; F32.9 - MAJOR DEPRESSIVE DISORDER, SINGLE EPISODE, UNSPECIFIED Status: Chronic - Plan cont current plan of care, continue antibiotics * continue rocephin and levaquin today * will consider discharge tomorrow * medication reviewed as below * symptomatic treatment. Review of Systems - Review of Systems Other: not reliable due to her dementia - Medications/Allergies Allergies/Adverse Reactions: Allergies Allergy/AdvReac Type Severity Reaction Status Date / Time No Known Drug Allergies Allergy Verified 05/15/18 16:20 Medications: Current Medications Acetaminophen (Tylenol) 650 mg PO Q4H PRN PRN Reason: Headache/Fever/Mild Pain (1-3) Last Admin: 05/17/18 18:43 Dose: 650 mg Aspirin (Aspirin Chewable) 81 mg PO DAILY [facility] Last Admin: 05/18/18 08:10 Dose: 81 mg Bisacodyl (Dulcolax) 10 mg PO DAILYPRN PRN PRN Reason: Constipation Cholecalciferol (Vitamin D3) 5,000 units PO DAILY [facility] Last Admin: 05/18/18 08:09 Dose: 5,000 units Diltiazem HCl (Cardizem Cd) 120 mg PO QPM-[facility] Last Admin: 05/17/18 17:12 Dose: 120 mg Docusate Sodium (Colace) 100 mg PO [facility] Last Admin: 05/17/18 20:12 Dose: 100 mg Gabapentin (Neurontin) 300 mg PO TID [facility] Last Admin: 05/18/18 08:10 Dose: 300 mg Galantamine Hydrobromide (Razadyne) 16 mg PO QPM-[facility] Last Admin: 05/17/18 17:11 Dose: 16 mg Ceftriaxone Sodium 1 gm/ (Sodium Chloride) 100 mls @ 200 mls/hr IVPB 0830 [facility] Last Admin: 05/18/18 08:07 Dose: 100 mls Levofloxacin 500 mg/ Device 100 mls @ 100 mls/hr IVPB 0900 [facility] Last Admin: 05/18/18 08:10 Dose: 100 mls Iron/Minerals/Multivitamins (Theragran M) 1 tab PO DAILY [facility] Last Admin: 05/18/18 08:10 Dose: 1 tab Magnesium Oxide (Magnesium Oxide) 400 mg PO BID [facility] Last Admin: 05/18/18 08:09 Dose: 400 mg Memantine (Namenda) 10 mg PO BID[facility] Last Admin: 05/18/18 08:10 Dose: 10 mg Mirtazapine (Remeron) 15 mg PO [facility] Last Admin: 05/17/18 20:12 Dose: 15 mg Polyethylene Glycol (Miralax) 17 gm PO DAILY [facility] Last Admin: 05/18/18 08:09 Dose: 17 gm Potassium Chloride (K-Dur) 20 meq PO TID-WM [facility] Last Admin: 05/18/18 08:10 Dose: 20 meq Risperidone (Risperidone) 0.25 mg PO BID [facility] Last Admin: 05/18/18 08:10 Dose: 0.25 mg Senna/Docusate Sodium (Senokot S) 2 tab PO BID PRN PRN Reason: Constipation Sodium Chloride (Flush - Normal Saline) 10 ml IVF Q12HR [facility] Last Admin: 05/18/18 08:11 Dose: 10 ml Sodium Chloride (Flush - Normal Saline) 10 ml IVF PRN PRN PRN Reason: Saline Flush Tramadol HCl (Ultram) 50 mg PO Q6H PRN PRN Reason: PAIN >4 Venlafaxine HCl (Effexor Xr) 150 mg PO DAILY [facility] Last Admin: 05/18/18 08:10 Dose: 150 mg
[2018-05-18] MEDS: Docusate 100 MG CAP PO SCH (20:35)
[2018-05-18] MEDS: Mirtazapine 15 MG TAB PO SCH (20:36)
[2018-05-19] MEDS: Potassium Chloride 20 MEQ TAB PO SCH ×3 (08:22→16:26)
[2018-05-19] MEDS: Magnesium Oxide 400 MG TAB PO SCH ×2 (08:23→20:57)
[2018-05-19] MEDS: risperiDONE 0.25 MG TAB PO SCH ×2 (08:25→20:57)
[2018-05-19] MEDS: Multivitamin W/ Minerals 1 TAB PO SCH (08:25)
[2018-05-19] MEDS: Venlafaxine HCl XR 150 MG CAP PO SCH (08:25)
[2018-05-19] MEDS: Gabapentin 300 MG CAP PO SCH ×3 (08:26→20:57)
[2018-05-19] MEDS: cefTRIAXone\\ROCEPHIN 1 GM in Sodium Chloride 0.9% 100 ML IVPB SCH (08:26)
[2018-05-19] MEDS: Aspirin Chewable 81 MG TAB PO SCH (08:26)
[2018-05-19] MEDS: Polyethylene Glycol 3350 17 GM Packet PO SCH (08:29)
--- NOTE | 2018-05-19 11:52 | PDOC.PN ---
- Subjective Encounter Start Date: 05/19/18 Encounter Start Time: 08:20 last night had retention and required I/o cath, has back pain, no fever - Objective Resuscitation Status - Order Detail: 05/15/18 15:51 Resuscitation Status Routine Resuscitation Status: FULL: Full Resuscitation MAR Reviewed: Yes Vital Signs & Weight: Vital Signs (12 hours) Temp Pulse Resp BP Pulse Ox 05/19/18 07:46 97.5 F L 76 12 134/68 91 L Weight Weight 145 lb 8 oz I&O: 05/18/18 05/19/18 05/20/18 06:59 06:59 06:59 Intake Total 1420 1240 Output Total 1000 1 Balance 420 1239 Result Diagrams: 05/17/18 07:58 05/17/18 07:58 Phys Exam - Physical Examination Constitutional: NAD HEENT: PERRLA, moist MMs, sclera anicteric Neck: no JVD, supple Respiratory: no wheezing, no rales, no rhonchi Cardiovascular: RRR, no significant murmur, no rub Gastrointestinal: soft, non-tender, no distention, positive bowel sounds Musculoskeletal: no edema, pulses present Neurological: non-focal Lymphatic: no nodes Psychiatric: normal affect Skin: no rash, normal turgor Dx/Plan (1) Encephalopathy in sepsis Code(s): G93.41 - METABOLIC ENCEPHALOPATHY Status: Acute (2) Lactic acidosis Code(s): E87.2 - ACIDOSIS Status: Acute (3) Sepsis Code(s): A41.9 - SEPSIS, UNSPECIFIED ORGANISM Status: Acute (4) Dehydration Code(s): E86.0 - DEHYDRATION Status: Acute (5) Alzheimer's dementia Code(s): G30.9 - ALZHEIMER'S DISEASE, UNSPECIFIED; F02.80 - DEMENTIA IN OTH DISEASES CLASSD ELSWHR W/O BEHAVRL DISTURB Status: Chronic (6) Anxiety and depression Code(s): F41.9 - ANXIETY DISORDER, UNSPECIFIED; F32.9 - MAJOR DEPRESSIVE DISORDER, SINGLE EPISODE, UNSPECIFIED Status: Chronic (7) Urinary retention Code(s): R33.9 - RETENTION OF URINE, UNSPECIFIED Status: Acute - Plan cont current plan of care, continue antibiotics, PT/OT, social service assistant * medication reviewed as below * symptomatic treatment * continue IV antibiotics * start PT * bladder scan as needed. Review of Systems - Review of Systems Other: not reliable due to dementia - Medications/Allergies Allergies/Adverse Reactions: Allergies Allergy/AdvReac Type Severity Reaction Status Date / Time No Known Drug Allergies Allergy Verified 05/15/18 16:20 Medications: Current Medications Acetaminophen (Tylenol) 650 mg PO Q4H PRN PRN Reason: Headache/Fever/Mild Pain (1-3) Last Admin: 05/17/18 18:43 Dose: 650 mg Aspirin (Aspirin Chewable) 81 mg PO DAILY [facility] Last Admin: 05/19/18 08:26 Dose: 81 mg Bisacodyl (Dulcolax) 10 mg PO DAILYPRN PRN PRN Reason: Constipation Cholecalciferol (Vitamin D3) 5,000 units PO DAILY [facility] Last Admin: 05/19/18 08:24 Dose: 5,000 units Diltiazem HCl (Cardizem Cd) 120 mg PO QPM-[facility] Last Admin: 05/18/18 17:41 Dose: 120 mg Docusate Sodium (Colace) 100 mg PO [facility] Last Admin: 05/18/18 20:35 Dose: 100 mg Gabapentin (Neurontin) 300 mg PO TID [facility] Last Admin: 05/19/18 08:26 Dose: 300 mg Galantamine Hydrobromide (Razadyne) 16 mg PO QPM-[facility] Last Admin: 05/18/18 17:41 Dose: 16 mg Ceftriaxone Sodium 1 gm/ (Sodium Chloride) 100 mls @ 200 mls/hr IVPB 0830 [facility] Last Admin: 05/19/18 08:26 Dose: 100 mls Levofloxacin 500 mg/ Device 100 mls @ 100 mls/hr IVPB 0900 [facility] Last Admin: 05/19/18 09:54 Dose: 100 mls Iron/Minerals/Multivitamins (Theragran M) 1 tab PO DAILY [facility] Last Admin: 05/19/18 08:25 Dose: 1 tab Magnesium Oxide (Magnesium Oxide) 400 mg PO BID [facility] Last Admin: 05/19/18 08:23 Dose: 400 mg Memantine (Namenda) 10 mg PO BID-[facility] Last Admin: 05/19/18 08:21 Dose: 10 mg Mirtazapine (Remeron) 15 mg PO [facility] Last Admin: 05/18/18 20:36 Dose: 15 mg Polyethylene Glycol (Miralax) 17 gm PO DAILY [facility] Last Admin: 05/19/18 08:29 Dose: Not Given Potassium Chloride (K-Dur) 20 meq PO TID-WM [facility] Last Admin: 05/19/18 08:22 Dose: 20 meq Risperidone (Risperidone) 0.25 mg PO BID [facility] Last Admin: 05/19/18 08:25 Dose: 0.25 mg Senna/Docusate Sodium (Senokot S) 2 tab PO BID PRN PRN Reason: Constipation Sodium Chloride (Flush - Normal Saline) 10 ml IVF Q12HR [facility] Last Admin: 05/19/18 08:29 Dose: 10 ml Sodium Chloride (Flush - Normal Saline) 10 ml IVF PRN PRN PRN Reason: Saline Flush Tramadol HCl (Ultram) 50 mg PO Q6H PRN PRN Reason: PAIN >4 Venlafaxine HCl (Effexor Xr) 150 mg PO DAILY [facility] Last Admin: 05/19/18 08:25 Dose: 150 mg
[2018-05-19] MEDS: Mirtazapine 15 MG TAB PO SCH (20:57)
[2018-05-19] MEDS: Docusate 100 MG CAP PO SCH (20:57)
[2018-05-19] MEDS: Acetaminophen 325 MG TAB PO PRN (21:00)
[2018-05-20] MEDS: Magnesium Oxide 400 MG TAB PO SCH ×2 (08:28→20:19)
[2018-05-20] MEDS: cefTRIAXone\\ROCEPHIN 1 GM in Sodium Chloride 0.9% 100 ML IVPB SCH (08:28)
[2018-05-20] MEDS: Multivitamin W/ Minerals 1 TAB PO SCH (08:28)
[2018-05-20] MEDS: Gabapentin 300 MG CAP PO SCH ×3 (08:28→20:18)
[2018-05-20] MEDS: Polyethylene Glycol 3350 17 GM Packet PO SCH (08:29)
[2018-05-20] MEDS: Aspirin Chewable 81 MG TAB PO SCH (08:29)
[2018-05-20] MEDS: Venlafaxine HCl XR 150 MG CAP PO SCH (08:29)
[2018-05-20] MEDS: Potassium Chloride 20 MEQ TAB PO SCH ×3 (08:29→16:50)
[2018-05-20] MEDS: risperiDONE 0.25 MG TAB PO SCH ×2 (08:29→20:19)
--- NOTE | 2018-05-20 10:28 | PDOC.PN ---
- Subjective Encounter Start Date: 05/20/18 Encounter Start Time: 08:10 Patient seen and examined. No new complaints. No overnight events - Objective Resuscitation Status - Order Detail: 05/15/18 15:51 Resuscitation Status Routine Resuscitation Status: FULL: Full Resuscitation MAR Reviewed: Yes Vital Signs & Weight: Vital Signs (12 hours) Temp Pulse Resp BP Pulse Ox 05/20/18 08:21 98.1 F 64 16 155/72 H 94 L 05/20/18 08:00 94 L Weight Weight 145 lb 8 oz I&O: 05/19/18 05/20/18 05/21/18 06:59 06:59 06:59 Intake Total 1240 1500 Output Total 1 Balance 1239 1500 Result Diagrams: 05/17/18 07:58 05/17/18 07:58 Phys Exam - Physical Examination Constitutional: NAD HEENT: PERRLA, moist MMs, sclera anicteric Neck: no JVD, supple Respiratory: no wheezing, no rales, no rhonchi Cardiovascular: RRR, no significant murmur, no rub Gastrointestinal: soft, non-tender, no distention, positive bowel sounds Musculoskeletal: no edema, pulses present Neurological: non-focal, normal sensation Lymphatic: no nodes Psychiatric: normal affect Skin: no rash, normal turgor Dx/Plan (1) Encephalopathy in sepsis Code(s): G93.41 - METABOLIC ENCEPHALOPATHY Status: Acute (2) Lactic acidosis Code(s): E87.2 - ACIDOSIS Status: Acute (3) Sepsis Code(s): A41.9 - SEPSIS, UNSPECIFIED ORGANISM Status: Acute (4) Dehydration Code(s): E86.0 - DEHYDRATION Status: Acute (5) Alzheimer's dementia Code(s): G30.9 - ALZHEIMER'S DISEASE, UNSPECIFIED; F02.80 - DEMENTIA IN OTH DISEASES CLASSD ELSWHR W/O BEHAVRL DISTURB Status: Chronic (6) Anxiety and depression Code(s): F41.9 - ANXIETY DISORDER, UNSPECIFIED; F32.9 - MAJOR DEPRESSIVE DISORDER, SINGLE EPISODE, UNSPECIFIED Status: Chronic (7) Urinary retention Code(s): R33.9 - RETENTION OF URINE, UNSPECIFIED Status: Acute - Plan cont current plan of care * medication reviewed as below * symptomatic treatment * stable medically for discharge. Review of Systems - Review of Systems Other: not reliable due to dementia - Medications/Allergies Allergies/Adverse Reactions: Allergies Allergy/AdvReac Type Severity Reaction Status Date / Time No Known Drug Allergies Allergy Verified 05/15/18 16:20 Medications: Current Medications Acetaminophen (Tylenol) 650 mg PO Q4H PRN PRN Reason: Headache/Fever/Mild Pain (1-3) Last Admin: 05/19/18 21:00 Dose: 650 mg Aspirin (Aspirin Chewable) 81 mg PO DAILY [facility] Last Admin: 05/20/18 08:29 Dose: 81 mg Bisacodyl (Dulcolax) 10 mg PO DAILYPRN PRN PRN Reason: Constipation Cholecalciferol (Vitamin D3) 5,000 units PO DAILY [facility] Last Admin: 05/20/18 08:28 Dose: 5,000 units Diltiazem HCl (Cardizem Cd) 120 mg PO QPM-[facility] Last Admin: 05/19/18 16:26 Dose: 120 mg Docusate Sodium (Colace) 100 mg PO [facility] Last Admin: 05/19/18 20:57 Dose: 100 mg Gabapentin (Neurontin) 300 mg PO TID [facility] Last Admin: 05/20/18 08:28 Dose: 300 mg Galantamine Hydrobromide (Razadyne) 16 mg PO QPM-[facility] Last Admin: 05/19/18 16:26 Dose: 16 mg Ceftriaxone Sodium 1 gm/ (Sodium Chloride) 100 mls @ 200 mls/hr IVPB 0830 [facility] Last Admin: 05/20/18 08:28 Dose: 100 mls Levofloxacin 500 mg/ Device 100 mls @ 100 mls/hr IVPB 0900 [facility] Last Admin: 05/20/18 08:29 Dose: 100 mls Iron/Minerals/Multivitamins (Theragran M) 1 tab PO DAILY [facility] Last Admin: 05/20/18 08:28 Dose: 1 tab Magnesium Oxide (Magnesium Oxide) 400 mg PO BID [facility] Last Admin: 05/20/18 08:28 Dose: 400 mg Memantine (Namenda) 10 mg PO BID-[facility] Last Admin: 05/20/18 08:29 Dose: 10 mg Mirtazapine (Remeron) 15 mg PO [facility] Last Admin: 05/19/18 20:57 Dose: 15 mg Polyethylene Glycol (Miralax) 17 gm PO DAILY [facility] Last Admin: 05/20/18 08:29 Dose: 17 gm Potassium Chloride (K-Dur) 20 meq PO TID-[facility] Last Admin: 05/20/18 08:29 Dose: 20 meq Risperidone (Risperidone) 0.25 mg PO BID [facility] Last Admin: 05/20/18 08:29 Dose: 0.25 mg Senna/Docusate Sodium (Senokot S) 2 tab PO BID PRN PRN Reason: Constipation Sodium Chloride (Flush - Normal Saline) 10 ml IVF Q12HR [facility] Last Admin: 05/20/18 08:29 Dose: 10 ml Sodium Chloride (Flush - Normal Saline) 10 ml IVF PRN PRN PRN Reason: Saline Flush Tramadol HCl (Ultram) 50 mg PO Q6H PRN PRN Reason: PAIN >4 Last Admin: 05/19/18 16:42 Dose: 50 mg Venlafaxine HCl (Effexor Xr) 150 mg PO DAILY [facility] Last Admin: 05/20/18 08:29 Dose: 150 mg
--- NOTE | 2018-05-20 10:50 | DIS ---
DATE OF ADMISSION: 05/17/2018 DATE OF DISCHARGE: 05/20/2018 PRIMARY CARE PHYSICIAN: Isha Victoria MD. DISCHARGE DISPOSITION: half-way. PRIMARY DISCHARGE DIAGNOSES: 1. Encephalopathy in sepsis, resolved. 2. Dehydration, corrected. 3. Lactic acidosis, corrected. 4. Sepsis, resolved. 5. Urinary retention, required in-and out catheter. SECONDARY DISCHARGE DIAGNOSES: 1. Advanced Alzheimer's dementia. 2. Anxiety and depression. 3. Chronic low back pain. PRIMARY PROCEDURE/OPERATION: None. RADIOLOGICAL INVESTIGATION: CT brain, chest x-ray. SIGNIFICANT LABORATORY DATA: Hemoglobin 12.6. INR 1.1. Sodium 137, creatinine 0.84. Lactic acid 0.8. Urinalysis unremarkable. Urine drug screen negative. All culture negative. Influenza negative. DISCHARGE MEDICATIONS: 1. Aspirin 81 mg p.o. daily. 2. Vitamin D3 5000 units p.o. daily. 3. Cartia XT 120 mg daily. 4. Colace 100 mg at bedtime. 5. Gabapentin 300 mg t.i.d. 6. Galantamine 16 mg daily. 7. Probiotic one capsule daily. 8. Magnesium oxide 400 mg b.i.d. 9. Namenda 10 mg b.i.d. 10. Remeron 15 mg at bedtime. 11. Multivitamin one tablet daily. 12. MiraLAX 17 g p.o. daily. 13. Potassium chloride 20 mEq p.o. t.i.d. 14. Risperidone 0.25 mg daily as directed. 15. Tramadol 50 mg q.6 hourly p.r.n. 16. Venlafaxine 150 mg daily. 17. Omnicef 300 mg p.o. b.i.d. for 5 days. CONTRAINDICATION: None. CODE STATUS: Full code. INPATIENT DE ICER KIT ASSEMBLER: None. ALLERGIES: NO KNOWN DRUG ALLERGIES. DISCHARGE PLAN: Posthospital, [facility] to [facility]. HOSPITAL COURSE: An 83-year-old female with advanced dementia, who was admitted by Dr. Torres. Please see her H and P for further detail. Initially, the patient was sent from [facility] for altered mental status. Her CT brain was negative. Her chest x-ray was normal. The patient had fever while in hospital, we suspected sepsis, but we could not figure it out what source of infection is. Her urine culture remain negative. Blood cultures remain negative. Her urinalysis was normal. Flu screen was negative. She did not have any local focal clinical examination finding to support diagnosis. The patient was treated with Rocephin and Levaquin while in hospital. She did not have any further fever, clinically improved to her baseline level. At this point, the patient is medically stable for discharge today. Paperwork for discharge done. Discharge medication reconciliation done. Please see my progress note from further detail for more detail. TIME SPENT: Total time spent on discharge day, 31 minutes. Job ID: [id number]
[2018-05-20] MEDS: Docusate 100 MG CAP PO SCH (20:18)
[2018-05-20] MEDS: Mirtazapine 15 MG TAB PO SCH (20:19)
[2018-05-21] MEDS: Potassium Chloride 20 MEQ TAB PO SCH ×3 (08:41→17:37)
[2018-05-21] MEDS: risperiDONE 0.25 MG TAB PO SCH ×2 (08:41→21:22)
[2018-05-21] MEDS: Venlafaxine HCl XR 150 MG CAP PO SCH (08:41)
[2018-05-21] MEDS: Multivitamin W/ Minerals 1 TAB PO SCH (08:43)
[2018-05-21] MEDS: Gabapentin 300 MG CAP PO SCH ×3 (08:43→21:22)
[2018-05-21] MEDS: Magnesium Oxide 400 MG TAB PO SCH ×2 (08:43→21:22)
[2018-05-21] MEDS: Polyethylene Glycol 3350 17 GM Packet PO SCH (08:45)
[2018-05-21] MEDS: Aspirin Chewable 81 MG TAB PO SCH (08:45)
--- NOTE | 2018-05-21 09:38 | PDOC.PN ---
- Subjective Encounter Start Date: 05/21/18 Encounter Start Time: 10:40 Subjective: Patient without events overnight. No complaints this morning. No pain. -: No N/V. - Objective Resuscitation Status - Order Detail: 05/15/18 15:51 Resuscitation Status Routine Resuscitation Status: FULL: Full Resuscitation MAR Reviewed: Yes Vital Signs & Weight: Vital Signs (12 hours) Temp Pulse Resp BP Pulse Ox 05/21/18 08:00 97.7 F 74 20 130/82 94 L Weight Weight 145 lb 8 oz I&O: 05/20/18 05/21/18 05/22/18 06:59 06:59 06:59 Intake Total 1500 75 Balance 1500 75 Result Diagrams: 05/17/18 07:58 05/17/18 07:58 Phys Exam - Physical Examination Constitutional: NAD HEENT: moist MMs Respiratory: no wheezing, no rales, no rhonchi Cardiovascular: RRR Gastrointestinal: soft, positive bowel sounds Neurological: non-focal Psychiatric: normal affect Dx/Plan (1) Encephalopathy in sepsis Code(s): G93.41 - METABOLIC ENCEPHALOPATHY Status: Resolved (2) Lactic acidosis Code(s): E87.2 - ACIDOSIS Status: Resolved (3) Sepsis Code(s): A41.9 - SEPSIS, UNSPECIFIED ORGANISM Status: Resolved (4) Dehydration Code(s): E86.0 - DEHYDRATION Status: Resolved (5) Alzheimer's dementia Code(s): G30.9 - ALZHEIMER'S DISEASE, UNSPECIFIED; F02.80 - DEMENTIA IN OTH DISEASES CLASSD ELSWHR W/O BEHAVRL DISTURB Status: Chronic (6) Urinary retention Code(s): R33.9 - RETENTION OF URINE, UNSPECIFIED Status: Acute Comment: on 3 /3 night required I&O cath, none since (7) Anxiety and depression Code(s): F41.9 - ANXIETY DISORDER, UNSPECIFIED; F32.9 - MAJOR DEPRESSIVE DISORDER, SINGLE EPISODE, UNSPECIFIED Status: Chronic - Plan cont current plan of care, continue antibiotics awaiting placement * . - Discharge Day Encounter end time: 10:50
[2018-05-21] MEDS ORDERED: Cefdinir 300 MG CAP PO SCH (09:45)
[2018-05-21] MEDS: cefTRIAXone\\ROCEPHIN 1 GM in Sodium Chloride 0.9% 100 ML IVPB SCH (10:40)
[2018-05-21] MEDS: Docusate 100 MG CAP PO SCH (21:22)
[2018-05-21] MEDS: Acetaminophen 325 MG TAB PO PRN (21:22)
[2018-05-21] MEDS: Mirtazapine 15 MG TAB PO SCH (21:22)
[2018-05-21] MEDS: Cefdinir 300 MG CAP PO SCH (21:22)
--- NOTE | 2018-05-22 08:20 | PDOC.PN ---
- Subjective Encounter Start Date: 05/22/18 Encounter Start Time: 10:10 Subjective: Patient with some JOSÉ stomach upset, no pain. No N/V. No -: appetite today. Didn't eat breakfast. - Objective Resuscitation Status - Order Detail: 05/15/18 15:51 Resuscitation Status Routine Resuscitation Status: FULL: Full Resuscitation MAR Reviewed: Yes Vital Signs & Weight: Vital Signs (12 hours) Temp Pulse Resp BP Pulse Ox 05/22/18 08:00 98.8 F 76 18 124/73 94 L 05/21/18 20:26 98.2 F 80 16 133/74 94 L Weight Weight 145 lb 8 oz I&O: 05/21/18 05/22/18 05/23/18 06:59 06:59 06:59 Intake Total 75 Balance 75 Result Diagrams: 05/17/18 07:58 05/17/18 07:58 Phys Exam - Physical Examination Constitutional: NAD HEENT: moist MMs Respiratory: no wheezing, no rales, no rhonchi Cardiovascular: RRR Gastrointestinal: soft, non-tender, positive bowel sounds Neurological: moves all 4 limbs Psychiatric: normal affect Dx/Plan (1) Encephalopathy in sepsis Code(s): G93.41 - METABOLIC ENCEPHALOPATHY Status: Resolved (2) Lactic acidosis Code(s): E87.2 - ACIDOSIS Status: Resolved (3) Sepsis Code(s): A41.9 - SEPSIS, UNSPECIFIED ORGANISM Status: Resolved (4) Dehydration Code(s): E86.0 - DEHYDRATION Status: Resolved (5) Alzheimer's dementia Code(s): G30.9 - ALZHEIMER'S DISEASE, UNSPECIFIED; F02.80 - DEMENTIA IN OTH DISEASES CLASSD ELSWHR W/O BEHAVRL DISTURB Status: Chronic (6) Urinary retention Code(s): R33.9 - RETENTION OF URINE, UNSPECIFIED Status: Acute Comment: on 3 /3 night required I&O cath, none since (7) Anxiety and depression Code(s): F41.9 - ANXIETY DISORDER, UNSPECIFIED; F32.9 - MAJOR DEPRESSIVE DISORDER, SINGLE EPISODE, UNSPECIFIED Status: Chronic - Plan cont current plan of care, continue antibiotics, PT/OT awaiting rehab placement -: will add PPI for dyspepsia * . - Discharge Day Encounter end time: 10:20
[2018-05-22] MEDS: Aspirin Chewable 81 MG TAB PO SCH (09:20)
[2018-05-22] MEDS: Potassium Chloride 20 MEQ TAB PO SCH ×3 (09:21→17:15)
[2018-05-22] MEDS: Venlafaxine HCl XR 150 MG CAP PO SCH (09:21)
[2018-05-22] MEDS: Gabapentin 300 MG CAP PO SCH ×3 (09:22→21:25)
[2018-05-22] MEDS: Magnesium Oxide 400 MG TAB PO SCH ×2 (09:22→21:25)
[2018-05-22] MEDS: Cefdinir 300 MG CAP PO SCH ×2 (09:22→21:25)
[2018-05-22] MEDS: Multivitamin W/ Minerals 1 TAB PO SCH (09:22)
[2018-05-22] MEDS: risperiDONE 0.25 MG TAB PO SCH ×2 (09:22→21:25)
[2018-05-22] MEDS: Polyethylene Glycol 3350 17 GM Packet PO SCH (10:00)
[2018-05-22] MEDS: Docusate 100 MG CAP PO SCH (21:25)
[2018-05-22] MEDS: Mirtazapine 15 MG TAB PO SCH (21:25)
[2018-05-23] MEDS: Potassium Chloride 20 MEQ TAB PO SCH ×2 (09:16→13:32)
[2018-05-23] MEDS: Venlafaxine HCl XR 150 MG CAP PO SCH (09:16)
[2018-05-23] MEDS: Aspirin Chewable 81 MG TAB PO SCH (09:16)
[2018-05-23] MEDS: risperiDONE 0.25 MG TAB PO SCH (09:16)
[2018-05-23] MEDS: Gabapentin 300 MG CAP PO SCH (09:16)
[2018-05-23] MEDS: Cefdinir 300 MG CAP PO SCH (09:16)
[2018-05-23] MEDS: Multivitamin W/ Minerals 1 TAB PO SCH (09:16)
[2018-05-23] MEDS: Polyethylene Glycol 3350 17 GM Packet PO SCH (09:17)
[2018-05-23] MEDS: Magnesium Oxide 400 MG TAB PO SCH (09:17)
--- NOTE | 2018-05-23 12:28 | PDOC.PN ---
- Subjective Encounter Start Date: 05/23/18 Encounter Start Time: 10:15 Patient seen and examined. No new complaints. No overnight events - Objective Resuscitation Status - Order Detail: 05/15/18 15:51 Resuscitation Status Routine Resuscitation Status: FULL: Full Resuscitation MAR Reviewed: Yes Vital Signs & Weight: Vital Signs (12 hours) Temp Pulse Resp BP Pulse Ox 05/23/18 08:00 92 L 05/23/18 07:45 98.8 F 97 16 116/71 92 L Weight Weight 145 lb 8 oz Result Diagrams: 05/17/18 07:58 05/17/18 07:58 Phys Exam - Physical Examination Constitutional: NAD HEENT: PERRLA, moist MMs, sclera anicteric Neck: no JVD, supple Respiratory: no wheezing, no rales, no rhonchi Cardiovascular: RRR, no significant murmur, no rub Gastrointestinal: soft, non-tender, no distention, positive bowel sounds Musculoskeletal: no edema, pulses present Neurological: non-focal, normal sensation Psychiatric: normal affect Skin: no rash, normal turgor Dx/Plan (1) Encephalopathy in sepsis Code(s): G93.41 - METABOLIC ENCEPHALOPATHY Status: Resolved (2) Lactic acidosis Code(s): E87.2 - ACIDOSIS Status: Resolved (3) Sepsis Code(s): A41.9 - SEPSIS, UNSPECIFIED ORGANISM Status: Resolved (4) Dehydration Code(s): E86.0 - DEHYDRATION Status: Resolved (5) Alzheimer's dementia Code(s): G30.9 - ALZHEIMER'S DISEASE, UNSPECIFIED; F02.80 - DEMENTIA IN OTH DISEASES CLASSD ELSWHR W/O BEHAVRL DISTURB Status: Chronic (6) Anxiety and depression Code(s): F41.9 - ANXIETY DISORDER, UNSPECIFIED; F32.9 - MAJOR DEPRESSIVE DISORDER, SINGLE EPISODE, UNSPECIFIED Status: Chronic (7) Urinary retention Code(s): R33.9 - RETENTION OF URINE, UNSPECIFIED Status: Acute Comment: on 3 /3 night required I&O cath, none since - Plan cont current plan of care, PT/OT, social media specialist * medication reviewed as below * symptomatic treatment * see discharge summery. Review of Systems - Review of Systems Other: not reliable due to dementia - Medications/Allergies Allergies/Adverse Reactions: Allergies Allergy/AdvReac Type Severity Reaction Status Date / Time No Known Drug Allergies Allergy Verified 05/15/18 16:20 Medications: Current Medications Acetaminophen (Tylenol) 650 mg PO Q4H PRN PRN Reason: Headache/Fever/Mild Pain (1-3) Last Admin: 05/21/18 21:22 Dose: 650 mg Aspirin (Aspirin Chewable) 81 mg PO DAILY [facility] Last Admin: 05/23/18 09:16 Dose: 81 mg Bisacodyl (Dulcolax) 10 mg PO DAILYPRN PRN PRN Reason: Constipation Cefdinir (Omnicef) 300 mg PO BID [facility] Last Admin: 05/23/18 09:16 Dose: 300 mg Cholecalciferol (Vitamin D3) 5,000 units PO DAILY [facility] Last Admin: 05/23/18 09:16 Dose: 5,000 units Diltiazem HCl (Cardizem Cd) 120 mg PO QPM-[facility] Last Admin: 05/22/18 17:15 Dose: Not Given Docusate Sodium (Colace) 100 mg PO [facility] Last Admin: 05/22/18 21:25 Dose: 100 mg Gabapentin (Neurontin) 300 mg PO TID [facility] Last Admin: 05/23/18 09:16 Dose: 300 mg Galantamine Hydrobromide (Razadyne) 16 mg PO QPM-[facility] Last Admin: 05/22/18 17:15 Dose: Not Given Iron/Minerals/Multivitamins (Theragran M) 1 tab PO DAILY [facility] Last Admin: 05/23/18 09:16 Dose: 1 tab Magnesium Oxide (Magnesium Oxide) 400 mg PO BID [facility] Last Admin: 05/23/18 09:17 Dose: 400 mg Memantine (Namenda) 10 mg PO BID-[facility] Last Admin: 05/23/18 09:16 Dose: 10 mg Mirtazapine (Remeron) 15 mg PO [facility] Last Admin: 05/22/18 21:25 Dose: 15 mg Pantoprazole Sodium (Protonix) 40 mg PO DAILY [facility] Last Admin: 05/23/18 09:17 Dose: 40 mg Polyethylene Glycol (Miralax) 17 gm PO DAILY [facility] Last Admin: 05/23/18 09:17 Dose: Not Given Potassium Chloride (K-Dur) 20 meq PO TID-[facility] Last Admin: 05/23/18 09:16 Dose: 20 meq Risperidone (Risperidone) 0.25 mg PO BID [facility] Last Admin: 05/23/18 09:16 Dose: 0.25 mg Senna/Docusate Sodium (Senokot S) 2 tab PO BID PRN PRN Reason: Constipation Sodium Chloride (Flush - Normal Saline) 10 ml IVF Q12HR [facility] Last Admin: 05/23/18 09:17 Dose: Not Given Sodium Chloride (Flush - Normal Saline) 10 ml IVF PRN PRN PRN Reason: Saline Flush Tramadol HCl (Ultram) 50 mg PO Q6H PRN PRN Reason: PAIN >4 Last Admin: 05/19/18 16:42 Dose: 50 mg Venlafaxine HCl (Effexor Xr) 150 mg PO DAILY [facility] Last Admin: 05/23/18 09:16 Dose: 150 mg
--- NOTE | 2018-05-23 12:48 | DIS ---
DATE OF ADMISSION: 05/17/2018 DATE OF DISCHARGE: 05/23/2018 PRIMARY CARE PHYSICIAN: Isha Victoria MD DISCHARGE DISPOSITION: Inpatient rehab. PRIMARY DISCHARGE DIAGNOSES: 1. Sepsis, resolved. 2. Lactic acidosis, resolved. 3. Encephalopathy, resolved. 4. Dehydration, corrected. 5. Urinary retention, corrected. SECONDARY DISCHARGE DIAGNOSES: 1. Alzheimer's dementia. 2. Anxiety and depression. 3. Physical deconditioning. Please see my discharge summary dictated for more detail on May 20, 2018. The patient was living at assisted living facility and the patient was not strong enough to go to that facility and that is why with help of case management associate, we arranged rehab. Family member was interested in going to rehab and rehab accepted her. There is nothing change in my discharge summary except the patient has finished antibiotic therapy while in hospital and that is why we are discontinuing antibiotic therapy upon discharge. PHYSICAL EXAMINATION: I have seen and examined the patient at the bedside today. VITAL SIGNS: Currently, temperature 98.8, pulse 97, respiratory rate 16, saturation 92%, and blood pressure 116/71. Weight 145 pounds. GENERAL: The patient is currently alert, awake, follows command. HEENT: Head; normocephalic, atraumatic. LUNGS: Clear without any rhonchi. CARDIAC: S1 and S2, regular without any murmur. ABDOMEN: Soft and benign. EXTREMITIES: No edema. NEUROLOGIC: Nonfocal examination. Overall, the patient is medically stable for discharge. Job ID: [id number]
[2018-05-23 14:01] VITALS: BP 128/75; TEMP 98.1
--- NOTE | 2018-05-24 23:00 | EKG ---
Test Reason : STROKE Blood Pressure : / mmHG Vent. Rate : 087 BPM Atrial Rate : 087 BPM P-R Int : 128 ms QRS Dur : 088 ms QT Int : 354 ms P-R-T Axes : 059 -33 000 degrees QTc Int : 425 ms Normal sinus rhythm Possible Left atrial enlargement Left axis deviation Left ventricular hypertrophy Confirmed by NIC HUTTON [id number]), writer editor SOFY COOL ([id number] on 05/24/2018 10:59:53 PM Referred By: Confirmed By:NIC HUTTON
== END 2018-05-23 14:54 | DRG 871 ==
LOC: ERS 09:09 → T4-A 13:21 → ERS 15:12 → T4-A 15:13 → OBSVTOIN 05-17 07:32
PROVIDERS: ADMIT Internal Medicine; ATTEND Internal Medicine
DX: A41.9 Sepsis, unspecified organism (principal); G93.41 Metabolic encephalopathy; E87.2 Acidosis; E11.9 Type 2 diabetes mellitus without complications; I10 Essential (primary) hypertension; E86.0 Dehydration; G30.9 Alzheimer's disease, unspecified; F02.80 Dementia in other diseases classified elsewhere, unspecified severity, without behavioral disturbance, psychotic disturbance, mood disturbance, and anxiety; F41.9 Anxiety disorder, unspecified; R33.9 Retention of urine, unspecified; F32.9 Major depressive disorder, single episode, unspecified; G89.29 Other chronic pain; M54.5 Low back pain; R10.13 Epigastric pain; Z79.82 Long term (current) use of aspirin; Z79.899 Other long term (current) drug therapy; Z87.440 Personal history of urinary (tract) infections; Z79.2 Long term (current) use of antibiotics
CPT/HCPCS: 36415; 36416; 51701; 70450; 71045; 80048; 80053; 80306; 80307; 81003; 82550; 83605; 83735; 84100; 84484; 85025; 85610; 85730; 87040; 87086; 87804; 90471; 90662; 93005; 96360; 96361; A4353; G0008; J0696; J1956; J7050

== ENCOUNTER 2018-08-22 02:28 | Emergency (ER) | payer MEDICARE, BC ==
[2018-08-22 03:16] LABS: #Basophils 0.1 thou/uL (0.0-0.2); #Eosinphils 0.2 thou/uL (0.0-0.7); #Lymphocytes 1.7 thou/uL (1.20-3.40); #Monocytes 0.7 thou/uL (0.11-0.59); #Neutrophils 6.4 thou/uL (1.40-6.50); %Basophils 0.7 % (0.0-1.0); %Lymphocytes 18.4 % (21.0-51.0); Hemoglobin 13.9 g/dL (12.0-16.0); Mean Corpuscular HGB CONC 33.1 g/dL (32.0-36.0); Mean Corpuscular Volume 93.8 fL (78.0-98.0); Platelet Count 328 thou/uL (130-400); RBC Distribution Width 12.3 % (11.5-14.5); Red Blood Cell (RBC) Count 4.49 mill/uL (4.20-5.40)
[2018-08-22 03:35] LABS: ALT (SGPT) 11 U/L (8-55); AST (SGOT) 16 U/L (5-34); Albumin 4.2 g/dL (3.4-4.8); Alkaline Phosphatase 125 U/L (40-150); Anion Gap 15 mmol/L (10-20); BUN (Urea Nitrogen) 16 mg/dL (9.8-20.1); Bilirubin, Total 0.3 mg/dL (0.2-1.2); Calc. Creatinine Clearance 0 mL/min (70-130); Carbon Dioxide 25 mmol/L (23-31); Chloride 104 mmol/L (98-107); Estimated GFR-MDRD 69; Globulin 3.4 g/dL (2.4-3.5); Glucose 136 mg/dL (83-110); Potassium 3.5 mmol/L (3.5-5.1); Protein, Total 7.6 g/dL (6.0-8.3); Sodium 140 mmol/L (136-145)
[2018-08-22] MEDS ORDERED: traMADol HCl 50 MG TAB PO SCH (04:15)
[2018-08-22] MEDS ORDERED: Loratadine 10 MG TAB PO SCH (04:15)
[2018-08-22] MEDS ORDERED: Gabapentin 300 MG CAP PO SCH (04:15)
[2018-08-22] MEDS ORDERED: risperiDONE 0.25 MG TAB PO SCH (04:15)
[2018-08-22] MEDS ORDERED: Potassium Chloride 20 MEQ TAB PO SCH (04:15)
[2018-08-22] MEDS ORDERED: Polyethylene Glycol 3350 17 GM Packet PO SCH (04:15)
[2018-08-22] MEDS ORDERED: Aspirin Chewable 81 MG TAB PO SCH (04:15)
[2018-08-22 05:40] LABS: Bilirubin Negative (Negative); Blood, Urine Trace (Negative); Clarity CLOUDY (Clear); Glucose, Urine (Dipstick) Negative (Negative); Leukocyte Negative (Negative); Nitrite Negative (Negative); Protein, Urine (Dipstick) Negative (Neg-Trace); Specific Gravity, Urine 1.012 (1.002-1.036); Urobilinogen 0.2 mg/dL (0.2-1.0); pH, Urine 7.5 (5.0-9.0)
[2018-08-22 05:42] LABS: Bacteria/HPF None Seen HPF (None Seen); Hyaline Casts/LPF 0-3 HYALINE CAST LPF (0-3 Hyaline); Pathc Cast-AUWi Flag 0.27 (0-2.49); WBC/HPF None Seen HPF (0-3)
--- NOTE | 2018-08-22 07:11 | CT ---
CT HEAD NONCONTRAST: Date: 08/22/18 COMPARISON: 05/15/18. INDICATION: Dizziness. FINDINGS: There is stable, mild prominence of the ventricular system with moderate chronic microvascular ischem ic disease of the cerebral white matter. No acute intracranial hemorrhage, mass effect, or midline sh ift. Lacunar infarction is seen within the right cerebellar hemisphere. IMPRESSION: 1. No acute intracranial hemorrhage. 2. 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 3. Prominence of ventricular system, preferentially the temporal horns, grossly stable, which is lik silvia on the basis of compensatory dilatation from parenchymal atrophy. POS: [facility]
--- NOTE | 2018-08-22 07:54 | RAD ---
XR Chest 1 View Portable History: [Hypertension] Comparison: Radiograph May 15, 2018 Findings: Heart size is enlarged. Mild pulmonary venous congestion. Small effusions. No pneumothorax. No acute osseous abnormality. Impression: Cardiomegaly mild edema and small pleural effusions.
== END 2018-08-22 07:09 ==
LOC: ERS 02:28
DX: I10 Essential (primary) hypertension (principal); G30.9 Alzheimer's disease, unspecified; F02.80 Dementia in other diseases classified elsewhere, unspecified severity, without behavioral disturbance, psychotic disturbance, mood disturbance, and anxiety; E11.9 Type 2 diabetes mellitus without complications; F41.9 Anxiety disorder, unspecified; Z79.899 Other long term (current) drug therapy; Z79.82 Long term (current) use of aspirin
CPT/HCPCS: 36415; 51701; 70450; 71045; 80053; 81003; 81015; 85025; 93005; A4353

== ENCOUNTER 2018-10-09 15:09 | Emergency (ER) | payer MEDICARE | END 2018-10-09 16:30 | disposition home or self-care (01) | LOC: ERS 15:09 | DX: Z04.3 Encounter for examination and observation following other accident (principal); I10 Essential (primary) hypertension; E11.9 Type 2 diabetes mellitus without complications; G30.9 Alzheimer's disease, unspecified; F02.80 Dementia in other diseases classified elsewhere, unspecified severity, without behavioral disturbance, psychotic disturbance, mood disturbance, and anxiety; F41.9 Anxiety disorder, unspecified; W18.30XA Fall on same level, unspecified, initial encounter; Y92.129 Unspecified place in nursing home as the place of occurrence of the external cause | CPT/HCPCS: 99283 ==

== ENCOUNTER 2019-01-23 17:45 | Emergency (ER) | payer BC, MEDICARE ==
[2019-01-23 18:42] LABS: Hemoglobin 13.8 g/dL (12.0-16.0); Mean Corpuscular HGB CONC 27.6 g/dL (32.0-36.0); Mean Corpuscular Volume 97.8 fL (78.0-98.0); RBC Distribution Width 12.8 % (11.5-14.5); Red Blood Cell (RBC) Count 5.12 mill/uL (4.20-5.40); White Blood Cell (WBC) Count 9.2 thou/uL (4.8-10.8)
[2019-01-23 19:00] LABS: #Eosinphils 0.2 thou/uL (0.0-0.7); #Lymphocytes 2.4 thou/uL (1.20-3.40); #Monocytes 0.8 thou/uL (0.11-0.59); #Neutrophils 5.8 thou/uL (1.40-6.50); %Basophils 0.3 % (0.0-1.0); %Eosinophils 1.6 % (0.0-10.0); %Monocytes 8.4 % (0.0-10.0); %Neutrophils 63.7 % (42.0-75.0); Hypochromia SLIGHT = 6-15 cells (100X) (0-5/hpf); MDiff Complete? YES; Mean Platelet Volume 5.5 fL (7.4-10.4); Platelet Count 54 thou/uL (130-400); Platelet Morphology Comment Appears Decreased; Polychromasia SLIGHT = 2-3 cells (100X) (0-2/hpf)
--- NOTE | 2019-01-23 19:08 | RAD ---
EXAM: CHEST ONE VIEW HISTORY: Cough. COMPARISON: 08/22/2018 FINDINGS: The patient is rotated to the right which accentuates the cardiac silhouette and mediastinal structur es. The pulmonary vasculature is within normal limits. The lungs are clear. The osseous structures are intact. Given differences in positioning, there has been no significant interval change compared to prior study. IMPRESSION: No acute cardiopulmonary process.
[2019-01-23 19:10] LABS: ALT (SGPT) 15 U/L (8-55); AST (SGOT) 26 U/L (5-34); Albumin 3.5 g/dL (3.4-4.8); Alkaline Phosphatase 125 U/L (40-110); Anion Gap 18 mmol/L (10-20); BUN (Urea Nitrogen) 26 mg/dL (9.8-20.1); Bilirubin, Total 0.2 mg/dL (0.2-1.2); Calc. Creatinine Clearance 0 mL/min (70-130); Calcium 9.1 mg/dL (7.8-10.44); Carbon Dioxide 20 mmol/L (23-31); Chloride 109 mmol/L (98-107); Estimated GFR-MDRD 67; Globulin 3.6 g/dL (2.4-3.5); Glucose 115 mg/dL (83-110); Protein, Total 7.1 g/dL (6.0-8.3); Sodium 142 mmol/L (136-145)
[2019-01-23 19:53] LABS: Bilirubin Negative (Negative); Blood, Urine Negative (Negative); Clarity Clear (Clear); Glucose, Urine (Dipstick) 50 mg/dL (Negative); Leukocyte 75 Leu/uL (Negative); Nitrite Negative (Negative); Protein, Urine (Dipstick) Negative (Neg-Trace); Urobilinogen Normal mg/dL (Less than 2); WBC/HPF 0-3 HPF (0-3)
[2019-01-23 19:55] LABS: Bacteria/HPF Rare-Few HPF (None Seen); RBC/HPF None Seen HPF (0-3)
== END 2019-01-23 22:56 | disposition home or self-care (01) ==
LOC: ERS 17:45
DX: I10 Essential (primary) hypertension (principal); E11.9 Type 2 diabetes mellitus without complications; Z79.899 Other long term (current) drug therapy
CPT/HCPCS: 36415; 51701; 71045; 80053; 81003; 81015; 85025; A4353

== ENCOUNTER 2020-02-02 19:42 | Inpatient (IN) | payer MEDICARE, BC ==
[2020-02-02 20:26] LABS: #Eosinphils 0.1 thou/uL (0.0-0.7); #Lymphocytes 1.4 thou/uL (1.20-3.40); #Monocytes 0.6 thou/uL (0.11-0.59); #Neutrophils 8.5 thou/uL (1.40-6.50); %Basophils 0.1 % (0.0-1.0); %Eosinophils 0.9 % (0.0-10.0); %Lymphocytes 13.3 % (21.0-51.0); %Neutrophils 79.8 % (42.0-75.0); Hemoglobin 13.3 g/dL (12.0-16.0); Mean Corpuscular HGB CONC 32.3 g/dL (32.0-36.0); Mean Corpuscular Hemoglobin 30.7 pg (27.0-31.0); Mean Corpuscular Volume 95.1 fL (78.0-98.0); Red Blood Cell (RBC) Count 4.34 mill/uL (4.20-5.40); White Blood Cell (WBC) Count 10.6 thou/uL (4.8-10.8)
[2020-02-02 20:37] LABS: MDiff Complete? YES; Platelet Clumps SLIGHT; Platelet Morphology Comment PLT clumps seen-ADEQ; RBC Morphology Normal
--- NOTE | 2020-02-02 20:37 | CT ---
CT BRAIN NONCONTRAST: DATE: 02/02/2020 HISTORY: 85-year-old female with altered mental status FINDINGS: There is no evidence of acute intra-axial or extra-axial hemorrhage. There is no midline shift or any other mass effect. There is no extra-axial fluid collection. There is no evidence of obstructive hydrocephalus. Calvarium is intact. There is diffuse brain parenchymal volume loss. There are low att enuation areas in the white matter. These are nonspecific, but in a patient of this age, they are probably chronic ischemic white matter changes due to microvascular atherosclerosis. IMPRESSION: 1) No acute intracranial findings. 2) involutional changes and chronic ischemic white matter changes.
--- NOTE | 2020-02-02 20:40 | RAD ---
RADIOGRAPH CHEST 1 VIEW: DATE: 02/02/2020 HISTORY: 85-year-old female with altered mental status. Concern for aspiration. FINDINGS: The thoracic aorta is tortuous and ectatic. There is no evidence of airspace density, cardiomegaly pu lmonary edema, or pneumothorax. The lateral costophrenic angles are not effaced. Elevated right hemidiaphragm IMPRESSION: 1) No acute pulmonary findings. 2) ectasia of thoracic aorta.
[2020-02-02 20:44] LABS: ALT (SGPT) 14 U/L (8-55); AST (SGOT) 16 U/L (5-34); Albumin 3.5 g/dL (3.4-4.8); Alkaline Phosphatase 96 U/L (40-110); Anion Gap 21 mmol/L (10-20); BUN (Urea Nitrogen) 26 mg/dL (9.8-20.1); Bilirubin, Total 0.2 mg/dL (0.2-1.2); Calc. Creatinine Clearance 0 mL/min (70-130); Calcium 9.3 mg/dL (7.8-10.44); Carbon Dioxide 24 mmol/L (23-31); Chloride 103 mmol/L (98-107); Estimated GFR-MDRD 40; Globulin 3.2 g/dL (2.4-3.5); Glucose 236 mg/dL (83-110); Potassium 3.1 mmol/L (3.5-5.1); Protein, Total 6.7 g/dL (6.0-8.3); Sodium 145 mmol/L (136-145)
[2020-02-02 22:37] LABS: Bilirubin Negative (Negative); Blood, Urine Negative (Negative); Clarity Turbid (Clear); Glucose, Urine (Dipstick) Normal (Negative); Ketone, Urine Negative (Negative); Leukocyte Negative Leu/uL (Negative); Nitrite Negative (Negative); Protein, Urine (Dipstick) 10 mg/dL (Neg-Trace); Specific Gravity, Urine 1.015 (1.002-1.036); Urobilinogen Normal mg/dL (Less than 2); pH, Urine 6.5 (5.0-9.0)
[2020-02-03] MEDS ORDERED: Potassium Chloride 20 MEQ TAB ONE (00:40)
[2020-02-03] MEDS ORDERED: Acetaminophen 325 MG TAB PO PRN (02:24)
[2020-02-03] MEDS ORDERED: Acetaminophen 650 MG Suppository PR PRN (02:24)
--- NOTE | 2020-02-03 02:51 | PDOC.HHP ---
Hospitalist HPI - History of Present Illness History of Present Illness: ADMISSION DATE: 02/03/2020 TIME OF ASSESSMENT: 0200 PRIMARY CARE PHYSICIAN: Dr. Mayer CHIEF COMPLAINT: Altered mental status and weakness HPI: Patient is an 85-year-old woman with a known history of Alzheimer's who resides at [facility] and was brought in due to altered mental status and generalized weakness. Though she has dementia the staff reported she was different from her baseline. Paramedics checked her blood glucose and it was 310. She was given 500 mL of normal saline. Per family she has no history of recent falls or head injury. ED COURSE: At initial presentation patient noted to be hypothermic and hypotensive with a BP of 87/46 and a temp of 97. Temperature improved after passive rewarming with a bear hugger. Urinalysis done in the emergency department showed turbid appearing urine but otherwise unremarkable. White cell count 10.6, hemoglobin 13.3, hematocrit 41.3, neutrophils 79.8%. Potassium 3.1, BUN 26, creatinine 1.49, GFR 40. Glucose 236. Left ear is unremarkable. Chest x-ray showed no acute cardiopulmonary findings. She was noted to have ec ángela of the thoracic aorta. CT head done showed no acute intracranial findings. Involutional changes and chronic ischemic white matter changes present. She was treated with 500 mL of normal saline and received 40 mEq of potassium chloride. PAST MEDICAL HISTORY: 1. Alzheimer's dementia 2. Diabetes mellitus, type II 3. Chronic UTIs 4. Hypertension 5. Anxiety PAST SURGICAL HISTORY: Unknown SOCIAL HISTORY: No history of drug abuse alcohol consumption or tobacco use. She is a senior living resident. CODE STATUS is unknown. Unclear what her mobility is at baseline though patient states she "gets around" FAMILY HISTORY: Noncontributory ALLERGIES: No known drug allergies CURRENT MEDICATIONS: 1. Galantamine 60 mg p.o. at bedtime 2. Magnesium oxide 400 mg p.o. twice daily 3. Gabapentin 300 mg p.o. 3 times daily 4. Docusate sodium p.o. daily at bedtime 5. Aspirin 81 mg p.o. daily 6. Acidophilus once daily 7. Tramadol 50 mg p.o. daily 8. Venlafaxine ER 150 mg p.o. daily 9. Vitamin D3 5000 units p.o. daily 10. Cardia XT 120 mg p.o. daily 11. Potassium chloride 20 mEq p.o. 3 times daily 12. Mirtazapine 15 mg p.o. daily 13. Risperidone 0.25 mg p.o. twice daily 14. Namenda 10 mg p.o. twice daily 15. Claritin 10 mg p.o. daily - Exam General Appearance: NAD, awake alert General - other findings: VS: Temp 97.6, HR 60, BP 112/64, RR 18, O2 sat 100% on room air Eye: PERRL, anicteric sclera ENT: normocephalic atraumatic, no oropharyngeal lesions Neck: supple, symmetric, no lymphadenopathy Heart: RRR, normal peripheral pulses Respiratory: CTAB, normal chest expansion Gastrointestinal: soft, non-tender, non-distended, normal bowel sounds Extremities: no edema Skin: tenting Skin - other findings: Skin is dry and lower legs with flaking of skin Neurological: cranial nerve grossly intact Musculoskeletal: normal tone, generalized weakness Psychiatric: oriented to person Hospitalist Results - Labs Result Diagrams: 02/02/20 20:15 02/02/20 20:15 Lab results: WBC 10.6 thou/uL (4.8-10.8) 02/02/20 20:15 Hgb 13.3 g/dL (12.0-16.0) 02/02/20 20:15 Hct 41.3 % (36.0-47.0) 02/02/20 20:15 MCV 95.1 fL (78.0-98.0) 02/02/20 20:15 Plt Count TNP 02/02/20 20:15 Neutrophils % 79.8 % (42.0-75.0) H 02/02/20 20:15 Sodium 145 mmol/L (136-145) 02/02/20 20:15 Potassium 3.1 mmol/L (3.5-5.1) L 02/02/20 20:15 Chloride 103 mmol/L (98-107) 02/02/20 20:15 Carbon Dioxide 24 mmol/L (23-31) 02/02/20 20:15 BUN 26 mg/dL (9.8-20.1) H 02/02/20 20:15 Creatinine 1.49 mg/dL (0.6-1.1) H 02/02/20 20:15 Glucose 236 mg/dL (83-110) H 02/02/20 20:15 Calcium 9.3 mg/dL (7.8-10.44) 02/02/20 20:15 Total Bilirubin 0.2 mg/dL (0.2-1.2) 02/02/20 20:15 AST 16 U/L (5-34) 02/02/20 20:15 ALT 14 U/L (8-55) 02/02/20 20:15 Alkaline Phosphatase 96 U/L (40-110) 02/02/20 20:15 Serum Total Protein 6.7 g/dL (6.0-8.3) 02/02/20 20:15 Albumin 3.5 g/dL (3.4-4.8) 02/02/20 20:15 Urine Ketones Negative mg/dL (Negative) 02/02/20 20:00 Urine Blood Negative (Negative) 02/02/20 20:00 Urine Nitrite Negative (Negative) 02/02/20 20:00 Ur Leukocyte Esterase Negative Breanna/uL (Negative) 02/02/20 20:00 Hospitalist H&P A/P - Problem (1) Dehydration Code(s): E86.0 - DEHYDRATION Status: Acute (2) Altered mental status Code(s): R41.82 - ALTERED MENTAL STATUS, UNSPECIFIED Status: Acute (3) Weakness generalized Code(s): R53.1 - WEAKNESS Status: Acute (4) Hypertension Code(s): I10 - ESSENTIAL (PRIMARY) HYPERTENSION Status: Chronic (5) Hypokalemia Code(s): E87.6 - HYPOKALEMIA Status: Acute Assessment and Plan: status post replacement continue to monitor Check Mg+ Replace electrolytes as required (6) Diabetes mellitus Code(s): E11.9 - TYPE 2 DIABETES MELLITUS WITHOUT COMPLICATIONS Status: Chronic (7) Alzheimer's dementia Code(s): G30.9 - ALZHEIMER'S DISEASE, UNSPECIFIED; F02.80 - DEMENTIA IN OTH DISEASES CLASSD ELSWHR W/O BEHAVRL DISTURB Status: Chronic - Plan Plan: 1. Altered mental status: Patient with known history of Alzheimer's dementia and reportedly altered from her baseline. According to ED physician she seemed more alert after receiving IV fluids. Information otherwise difficult to obtain and difficult to assess if she is back to her baseline. CT head done and showed involutional changes as well as chronic ischemic white matter changes. Otherwis e no acute intracranial findings. No evidence of underlying infection. Continue to monitor. Day team to decide no further imaging with MRI of brain indicated. Dysphagia screening 2. Generalized weakness, likely secondary to dehydration. Falls precaution PT/OT 3. KATHIE secondary to dehydration. Continue gentle IV hydration. Monitor renal function. Likely the cause of reported generalized weakness and altered mentation. 4. Diabetes mellitus. Continue to monitor glucose with Accu-Cheks before meals at bedtime. Cover with an insulin sliding scale and hold diabetic medications. Regular diet changed to a consistent carb diet. 5. Hypertension. Resume home medications Monitor blood pressure. 6. Alzheimer's dementia. Obtain further information from family, staff and obtain patient's CODE STATUS. 7. CODE STATUS unknown. 8. DVT prophylaxis. Will start heparin.
[2020-02-03] MEDS ORDERED: Ondansetron ODT 4 MG TAB SL PRN (03:15)
[2020-02-03] MEDS ORDERED: Ondansetron PF 4 MG/2 ML Vial IVP PRN (03:15)
[2020-02-03 04:18] LABS: #Monocytes 0.5 thou/uL (0.11-0.59); #Neutrophils 7.9 thou/uL (1.40-6.50); %Basophils 0.3 % (0.0-1.0); %Eosinophils 0.3 % (0.0-10.0); %Lymphocytes 10.5 % (21.0-51.0); %Monocytes 5.6 % (0.0-10.0); %Neutrophils 83.4 % (42.0-75.0); Mean Corpuscular HGB CONC 32.8 g/dL (32.0-36.0); Mean Corpuscular Volume 94.4 fL (78.0-98.0); Mean Platelet Volume 7.8 fL (7.4-10.4); Platelet Count 261 thou/uL (130-400); RBC Distribution Width 12.9 % (11.5-14.5); Red Blood Cell (RBC) Count 4.19 mill/uL (4.20-5.40); White Blood Cell (WBC) Count 9.4 thou/uL (4.8-10.8)
[2020-02-03 04:39] LABS: Lactic Acid 2.9 mmol/L (0.5-2.2)
[2020-02-03 04:41] LABS: Anion Gap 17 mmol/L (10-20); BUN (Urea Nitrogen) 25 mg/dL (9.8-20.1); CK (CPK) 134 U/L (29-168); Calc. Creatinine Clearance 0 mL/min (70-130); Calcium 9.2 mg/dL (7.8-10.44); Carbon Dioxide 28 mmol/L (23-31); Chloride 105 mmol/L (98-107); Estimated GFR-MDRD 55; Glucose 165 mg/dL (83-110); Potassium 3.6 mmol/L (3.5-5.1); Sodium 146 mmol/L (136-145)
[2020-02-03] MEDS: Sodium Chloride 0.9% 1,000 ML IV SCH (05:14)
[2020-02-03 06:06] VITALS: BMI 18.8
[2020-02-03 10:42] LABS: Lactic Acid 1.1 mmol/L (0.5-2.2)
[2020-02-03] MEDS ORDERED: Non-Formulary Item 1 EACH (Potassium Chloride [Potassium Chloride] 10 MEQ Capsule.Er) PO SCH (12:00)
[2020-02-03 13:08] LABS: SARS-CoV-2 MS2 Positive; SARS-CoV-2 N Gene Negative; SARS-CoV-2 S Gene Negative; SARS-CoV-2 by NAA Not Detected (NotDetected); SARS-CoV-2 orf1ab Negative
[2020-02-03] MEDS: Potassium Chloride 20 MEQ TAB PO SCH ×2 (14:41→17:30)
[2020-02-03] MEDS: Gabapentin 300 MG CAP PO SCH ×2 (14:42→21:27)
[2020-02-03] MEDS ORDERED: GALANTAMINE HBR 16 MG PO SCH (17:00)
[2020-02-03] MEDS ORDERED: cefTRIAXone\\ROCEPHIN 1 GM in Sodium Chloride 0.9% 100 ML IVPB SCH (17:00)
--- NOTE | 2020-02-03 17:01 | PDOC.HOSPP ---
- Subjective Encounter Date: 02/03/20 Encounter Time: 11:15 Subjective: Patient up in bed oriented only to self. - Objective Vital Signs & Weight: Vital Signs (12 hours) Temp Pulse Pulse Pulse Resp BP BP 02/03/20 15:44 98.3 F 80 16 02/03/20 11:12 97.6 F 84 16 02/03/20 10:25 86 88 130/60 134/58 L 02/03/20 08:36 90 134/54 L 02/03/20 07:30 97.8 F 92 16 BP Pulse Ox 02/03/20 15:44 148/72 H 96 02/03/20 11:12 140/70 97 02/03/20 10:25 02/03/20 08:36 02/03/20 07:30 134/54 L 94 L Weight Admit Weight 113 lb 5.088 oz Weight 113 lb 5.088 oz I&O: 02/02/20 02/03/20 02/04/20 06:59 06:59 06:59 Intake Total 1700 Output Total 0 Balance 1700 Result Diagrams: 02/03/20 04:00 02/03/20 04:00 Additional Labs: Accuchecks 02/03/20 02/03/20 02/03/20 16:39 10:26 05:31 POC Glucose 147 H 122 H 149 H Hospitalist ROS - Review of Systems Other: Unable to obtain. - Medication Medications: Active Medications Generic Name Dose Route Start Last Admin Trade Name Freq PRN Reason Stop Dose Admin Gabapentin 300 mg 02/03/20 15:00 02/03/20 14:42 Gabapentin 300 Mg Cap PO 300 mg TID MANA Administration Sodium Chloride 1,000 mls @ 50 mls/hr 02/03/20 03:00 02/03/20 05:14 Normal Saline 0.9% IV 1,000 mls .Q20H MANA Administration Potassium Chloride 20 meq 02/03/20 12:00 02/03/20 14:41 Potassium Chloride 20 Meq Tab PO 20 meq TID-WM MANA Administration - Exam Neck: negative: supple, symmetric, no JVD, no thyromegaly, no lymphadenopathy, no carotid bruit, JVD Heart: negative: RRR, no murmur, no gallops, no rubs, normal peripheral pulses, irregular, diminshed peripheral pulses, murmur present, II/IV, III/IV Respiratory: negative: CTAB, no wheezes, no rales, no ronchi, normal chest expansion, no tachypnea, normal percussion, rales, rhonchi, tachypneic, wheezes Gastrointestinal: soft, normal bowel sounds Hosp A/P (1) Acute metabolic encephalopathy Code(s): G93.41 - METABOLIC ENCEPHALOPATHY Status: Acute (2) Diabetes mellitus Code(s): E11.9 - TYPE 2 DIABETES MELLITUS WITHOUT COMPLICATIONS Status: Chronic (3) Hypertension Code(s): I10 - ESSENTIAL (PRIMARY) HYPERTENSION Status: Chronic (4) Alzheimer's dementia Code(s): G30.9 - ALZHEIMER'S DISEASE, UNSPECIFIED; F02.80 - DEMENTIA IN OTH DISEASES CLASSD ELSWHR W/O BEHAVRL DISTURB Status: Chronic (5) Lactic acidosis Code(s): E87.2 - ACIDOSIS Status: Resolved (6) Dehydration Code(s): E86.0 - DEHYDRATION Status: Acute - Plan We will continue IV fluids. UA negative. Chest x-ray negative. Blood cultures indicates Gram positive cocci most likely contaminant however we will start her on some ceftriaxone for now. Speech to evaluate the patient. We will get physical therapy to evaluate the patient. Given her age and her medical history of dementia she is at a high risk for very labile blood pressure.
[2020-02-03] MEDS ORDERED: Mirtazapine 15 MG TAB PO SCH (21:00)
[2020-02-03] MEDS ORDERED: [UNRECOGNIZED DRUG - OTHER] PO SCH (21:00)
[2020-02-03] MEDS ORDERED: Docusate 100 MG CAP PO SCH (21:00)
[2020-02-03] MEDS ORDERED: FLU VACC QS2020-21(65YR UP)/PF 240 MCG/0.7 ML SYRINGE IM ONE (21:00)
[2020-02-03] MEDS: Magnesium Oxide 400 MG TAB PO SCH (21:27)
[2020-02-03] MEDS: Floranex Packet PO SCH (21:27)
[2020-02-03] MEDS: risperiDONE 0.25 MG TAB PO SCH (21:27)
[2020-02-04] MEDS: Sodium Chloride 0.9% 1,000 ML IV SCH (04:07)
[2020-02-04 04:49] LABS: #Eosinphils 0.1 thou/uL (0.0-0.7); #Lymphocytes 1.9 thou/uL (1.20-3.40); #Monocytes 0.5 thou/uL (0.11-0.59); #Neutrophils 6.1 thou/uL (1.40-6.50); %Basophils 0.6 % (0.0-1.0); %Eosinophils 1.4 % (0.0-10.0); %Lymphocytes 21.7 % (21.0-51.0); %Neutrophils 70.3 % (42.0-75.0); Hemoglobin 11.3 g/dL (12.0-16.0); Mean Corpuscular HGB CONC 33.1 g/dL (32.0-36.0); Mean Corpuscular Hemoglobin 31.5 pg (27.0-31.0); Mean Corpuscular Volume 95.2 fL (78.0-98.0); Mean Platelet Volume 7.6 fL (7.4-10.4); Platelet Count 229 thou/uL (130-400); RBC Distribution Width 12.8 % (11.5-14.5); Red Blood Cell (RBC) Count 3.58 mill/uL (4.20-5.40); White Blood Cell (WBC) Count 8.7 thou/uL (4.8-10.8)
[2020-02-04 05:09] LABS: ALT (SGPT) 20 U/L (8-55); AST (SGOT) 33 U/L (5-34); Albumin 3.1 g/dL (3.4-4.8); Alkaline Phosphatase 86 U/L (40-110); Anion Gap 11 mmol/L (10-20); BUN (Urea Nitrogen) 15 mg/dL (9.8-20.1); Bilirubin, Total 0.3 mg/dL (0.2-1.2); Calc. Creatinine Clearance 40 mL/min (70-130); Calcium 8.4 mg/dL (7.8-10.44); Carbon Dioxide 27 mmol/L (23-31); Chloride 106 mmol/L (98-107); Estimated GFR-MDRD 81; Globulin 2.7 g/dL (2.4-3.5); Glucose 148 mg/dL (83-110); Potassium 3.8 mmol/L (3.5-5.1); Protein, Total 5.8 g/dL (6.0-8.3); Sodium 140 mmol/L (136-145)
[2020-02-04] MEDS ORDERED: Cholecalciferol 1,000 UNITS (25 MCG) TAB PO SCH (09:00)
[2020-02-04] MEDS ORDERED: Loratadine 10 MG TAB PO SCH (09:00)
[2020-02-04] MEDS ORDERED: Non-Formulary Item 1 EACH (Venlafaxine Hcl [Venlafaxine Hcl Er] 150 MG Tab.Er.24) PO SCH (09:00)
[2020-02-04] MEDS ORDERED: Venlafaxine HCl XR 150 MG CAP PO SCH (09:00)
[2020-02-04] MEDS ORDERED: Aspirin Chewable 81 MG TAB PO SCH (09:00)
[2020-02-04] MEDS ORDERED: Non-Formulary Item 1 EACH (Cholecalciferol (Vitamin D3) [Vitamin D3] 5,000 UNIT Capsule) PO SCH (09:00)
[2020-02-04] MEDS ORDERED: traMADol HCl 50 MG TAB PO SCH (09:00)
[2020-02-04] MEDS: Floranex Packet PO SCH (09:32)
[2020-02-04] MEDS: Magnesium Oxide 400 MG TAB PO SCH (09:33)
[2020-02-04] MEDS: Gabapentin 300 MG CAP PO SCH ×2 (09:33→15:07)
[2020-02-04] MEDS: risperiDONE 0.25 MG TAB PO SCH (09:34)
[2020-02-04] MEDS: Potassium Chloride 20 MEQ TAB PO SCH ×2 (09:34→11:55)
[2020-02-04 14:51] VITALS: BP 108/56; TEMP 97.5
--- NOTE | 2020-02-05 01:56 | DIS ---
DATE OF ADMISSION: 02/03/2020 DATE OF DISCHARGE: 02/04/2020 DISCHARGE DIAGNOSES: 1. Hypotension, transient. 2. Dehydration. 3. Dementia. 4. Acute metabolic encephalopathy, unclear etiology, most likely secondary to dehydration. HOSPITAL COURSE: The patient is a very pleasant 85-year-old female who is demented, who is baseline oriented only x1, who was brought in for change in mental status from her baseline and was noted to have hypotension. Patient at this time was given some IV hydration, her blood pressure improved. Her blood cultures indicated coagulase-negative Staph, which most likely a contaminate. Her urine culture after she left did indicate a hemolytic Streptococcus. I will call the snf and put her on some antibiotics for that. However, her urine on analysis appeared to be normal. She had no significant leukocytosis, however, she had just some neutrophils. Patient was hydrated overnight. She was evaluated by speech, and was put on a specific diet. She had a chest x-ray and her CT head, chest x-ray did not show any acute abnormalities. Her CT brain did not show any acute abnormalities either. At this time, patient was discharged home. She will follow up with her primary. HOME MEDICATIONS: 1. Losartan 10 mg daily. 2. Memantine 10 mg b.i.d. 3. Risperdal 0.25 b.i.d. 4. Remeron 15 mg daily. 5. Potassium chloride 20 mEq t.i.d. 6. Diltiazem 120 mg q.p.m. 7. Aspirin 81 mg daily. 8. Magnesium 400 mg twice a day. 9. Colace 100 mg q.h.s. 10. Gabapentin 200 mg t.i.d. PHYSICAL EXAMINATION: VITAL SIGNS: On discharge, temperature of 98.0, 73, 12, 94% on room air, 108/56. GENERAL: She is oriented x1. Does not appear in distress. CVS: S1, S2 present. No murmurs, rubs, or gallops. ABDOMEN: Soft, nontender. Bowel sounds are present x2. Again, she will be discharged back to her snf. I will call in some antibiotics for her, however, as I mentioned, her urinalysis did not show any acute abnormalities. Job ID: [id number]
== END 2020-02-04 15:40 | disposition home or self-care (01) | DRG 682 ==
LOC: ERS 19:42 → 2SE 23:09 → INTOOBSV 23:11 → UNDOADMOB 23:11 → 2SE 02-03 02:51 → OBSVTOIN 02-03 14:16
PROVIDERS: ADMIT Internal Medicine; ATTEND Internal Medicine
DX: N17.9 Acute kidney failure, unspecified (principal); G93.41 Metabolic encephalopathy; Z20.828 Contact with and (suspected) exposure to other viral communicable diseases; E87.2 Acidosis; G30.9 Alzheimer's disease, unspecified; F02.80 Dementia in other diseases classified elsewhere, unspecified severity, without behavioral disturbance, psychotic disturbance, mood disturbance, and anxiety; E11.9 Type 2 diabetes mellitus without complications; I10 Essential (primary) hypertension; F41.9 Anxiety disorder, unspecified; E86.0 Dehydration; E87.6 Hypokalemia; I95.9 Hypotension, unspecified; Z79.82 Long term (current) use of aspirin; Z79.899 Other long term (current) drug therapy
CPT/HCPCS: 36415; 36416; 51701; 70450; 71045; 80048; 80053; 81003; 82550; 83605; 83735; 83880; 85025; 87040; 87077; 87086; 87149; 87635; G0378; J0696; J3490; U0003

== ENCOUNTER 2020-02-14 21:32 | Emergency (ER) | payer MEDICARE, BC ==
[2020-02-14 22:13] LABS: Bilirubin Negative (Negative); Blood, Urine Negative (Negative); Clarity Clear (Clear); Glucose, Urine (Dipstick) 70 mg/dL (Negative); Ketone, Urine Negative (Negative); Leukocyte Negative Leu/uL (Negative); Nitrite Negative (Negative); Protein, Urine (Dipstick) 20 mg/dL (Neg-Trace); Specific Gravity, Urine 1.019 (1.002-1.036); Urobilinogen Normal mg/dL (Less than 2); pH, Urine 6.5 (5.0-9.0)
--- NOTE | 2020-02-14 22:42 | RAD ---
PORTABLE CHEST: Date: 02/14/2020 PROVIDED CLINICAL HISTORY: Hypotension, altered mental status. FINDINGS: Comparison with 02/02/2020. The cardiac and mediastinal silhouette is within normal limits. Presumed colonic interposition beneat h the right hemidiaphragm given the absence of apparent pneumoperitoneum on the left. There is no foc al consolidation, pleural fluid, or pneumothorax apparent. IMPRESSION: No evidence for an acute cardiopulmonary process. POS: CHERYL
[2020-02-14 22:50] LABS: #Eosinphils 0.1 thou/uL (0.0-0.7); #Lymphocytes 1.3 thou/uL (1.20-3.40); #Monocytes 0.6 thou/uL (0.11-0.59); %Basophils 0.3 % (0.0-1.0); %Eosinophils 0.9 % (0.0-10.0); %Lymphocytes 11.6 % (21.0-51.0); %Monocytes 5.3 % (0.0-10.0); %Neutrophils 81.9 % (42.0-75.0); Hemoglobin 12.3 g/dL (12.0-16.0); Mean Corpuscular HGB CONC 33.1 g/dL (32.0-36.0); Mean Corpuscular Volume 96.5 fL (78.0-98.0); Mean Platelet Volume 7.2 fL (7.4-10.4); Platelet Count 301 thou/uL (130-400); RBC Distribution Width 12.8 % (11.5-14.5); Red Blood Cell (RBC) Count 3.86 mill/uL (4.20-5.40)
[2020-02-14 23:12] LABS: ALT (SGPT) 9 U/L (8-55); AST (SGOT) 14 U/L (5-34); Albumin 3.3 g/dL (3.4-4.8); Alkaline Phosphatase 85 U/L (40-110); Anion Gap 16 mmol/L (10-20); BUN (Urea Nitrogen) 19 mg/dL (9.8-20.1); Bilirubin, Total 0.2 mg/dL (0.2-1.2); CK (CPK) 70 U/L (29-168); Calc. Creatinine Clearance 0 mL/min (70-130); Calcium 8.5 mg/dL (7.8-10.44); Carbon Dioxide 24 mmol/L (23-31); Chloride 109 mmol/L (98-107); Estimated GFR-MDRD 49; Globulin 2.8 g/dL (2.4-3.5); Glucose 196 mg/dL (83-110); Lipase 6 U/L (8-78); Potassium 3.1 mmol/L (3.5-5.1); Protein, Total 6.1 g/dL (6.0-8.3); Sodium 146 mmol/L (136-145)
== END 2020-02-15 00:04 ==
LOC: ERS 21:32
DX: R41.82 Altered mental status, unspecified (principal); E86.0 Dehydration; I10 Essential (primary) hypertension; E11.9 Type 2 diabetes mellitus without complications; G30.9 Alzheimer's disease, unspecified; F02.80 Dementia in other diseases classified elsewhere, unspecified severity, without behavioral disturbance, psychotic disturbance, mood disturbance, and anxiety; F41.9 Anxiety disorder, unspecified; Z79.82 Long term (current) use of aspirin; Z79.899 Other long term (current) drug therapy
CPT/HCPCS: 36415; 36416; 51701; 71045; 80053; 81003; 82550; 83605; 83690; 83880; 84484; 85025; 87040; 93005

== ENCOUNTER 2020-03-11 19:25 | Inpatient (IN) | payer MEDICARE, BC ==
[2020-03-11 20:12] LABS: #Lymphocytes 0.6 thou/uL (1.20-3.40); #Monocytes 0.3 thou/uL (0.11-0.59); #Neutrophils 5.6 thou/uL (1.40-6.50); %Eosinophils 0.3 % (0.0-10.0); %Lymphocytes 9.5 % (21.0-51.0); %Monocytes 4.2 % (0.0-10.0); %Neutrophils 86.1 % (42.0-75.0); Hemoglobin 13.6 g/dL (12.0-16.0); Mean Corpuscular HGB CONC 32.6 g/dL (32.0-36.0); Mean Corpuscular Hemoglobin 30.7 pg (27.0-31.0); Mean Corpuscular Volume 94.3 fL (78.0-98.0); Mean Platelet Volume 7.9 fL (7.4-10.4); Platelet Count 276 thou/uL (130-400); Red Blood Cell (RBC) Count 4.43 mill/uL (4.20-5.40); White Blood Cell (WBC) Count 6.5 thou/uL (4.8-10.8)
[2020-03-11 20:20] LABS: Bacteria/HPF 4+ HPF (None Seen); Bilirubin Negative (Negative); Blood, Urine 1+ (Negative); Clarity Turbid (Clear); Glucose, Urine (Dipstick) Normal (Negative); Ketone, Urine 10 mg/dL (Negative); Leukocyte 25 Leu/uL (Negative); Nitrite Negative (Negative); Protein, Urine (Dipstick) 30 mg/dL (Neg-Trace); RBC/HPF 0-3 HPF (0-3); Renal Epithelial 0-3 HPF (None Seen); Squamous Epithelial 0-3 HPF (0-3); Urobilinogen 6 mg/dL (Less than 2); WBC/HPF 0-3 HPF (0-3); pH, Urine 5.5 (5.0-9.0)
--- NOTE | 2020-03-11 20:24 | RAD ---
RADIOGRAPH CHEST 1 VIEW: DATE: 03/11/2020 HISTORY: 85-year-old female with "infection and altered mental status. Concern for aspiration. FINDINGS: The thoracic aorta is tortuous and ectatic. There is no evidence of airspace density, cardiomegaly, p ulmonary edema, or pneumothorax. The lateral costophrenic angles are not effaced. Right hemidiaphragm is elevated IMPRESSION: 1) No acute pulmonary findings. 2) ectasia of thoracic aorta.
[2020-03-11 20:34] LABS: ALT (SGPT) 25 U/L (8-55); AST (SGOT) 20 U/L (5-34); Albumin 3.7 g/dL (3.4-4.8); Alkaline Phosphatase 93 U/L (40-110); Anion Gap 20 mmol/L (10-20); BUN (Urea Nitrogen) 30 mg/dL (9.8-20.1); Bilirubin, Total 0.3 mg/dL (0.2-1.2); CK (CPK) 182 U/L (29-168); Calc. Creatinine Clearance 0 mL/min (70-130); Calcium 9.6 mg/dL (7.8-10.44); Carbon Dioxide 24 mmol/L (23-31); Chloride 101 mmol/L (98-107); Globulin 3.5 g/dL (2.4-3.5); Glucose 236 mg/dL (83-110); Potassium 3.8 mmol/L (3.5-5.1); Protein, Total 7.2 g/dL (6.0-8.3); Sodium 141 mmol/L (136-145)
--- NOTE | 2020-03-11 20:56 | CT ---
CT BRAIN NONCONTRAST: DATE: 03/11/2020 HISTORY: 85-year-old female with altered mental status FINDINGS: There is no evidence of acute intra-axial or extra-axial hemorrhage. There is no midline shift or any other mass effect. There is no extra-axial fluid collection. There is no evidence of obstructive hydrocephalus. Calvarium is intact. There is diffuse brain parenchymal volume loss. There are low att enuation areas in the white matter. These are nonspecific, but in a patient of this age, they are probably chronic ischemic white matter changes due to microvascular atherosclerosis. Tiny hypodensiti es in the left thalamus, posterior limb of left internal capsule, and probably in right caudate head. Small old lacunar infarction in left cerebellum. IMPRESSION: 1) No acute intracranial findings. 2) involutional changes and severe chronic ischemic white matter changes. 3) tiny lacunar infarctions in left thalamus and left basal ganglia, probably old. 4) very small old infarction in left cerebellar hemisphere.
[2020-03-11] MEDS ORDERED: cefTRIAXone\\ROCEPHIN 2 GM VIAL ONE (20:58)
[2020-03-11] MEDS ORDERED: Vancomycin 1 GM/200 ML BAG ONE (21:42)
[2020-03-11 22:22] LABS: SARS-CoV-2 NAA Rapid Test DETECTED (NotDetected)
[2020-03-11 23:12] LABS: Lactic Acid 2.4 mmol/L (0.5-2.2)
[2020-03-11] MEDS ORDERED: Sodium Chloride 0.9% 1,000 ML IV SCH (23:15)
[2020-03-11] MEDS ORDERED: Acetaminophen 325 MG TAB PO PRN (23:15)
[2020-03-11] MEDS ORDERED: Ondansetron ODT 4 MG TAB SL PRN (23:15)
[2020-03-11] MEDS ORDERED: Ondansetron PF 4 MG/2 ML Vial IVP PRN (23:15)
[2020-03-12 01:02] VITALS: BMI 17.1
[2020-03-12] MEDS: Azithromycin 500 MG in Sodium Chloride 0.9% 250 ML 250 ML IVPB SCH (01:06)
[2020-03-12] MEDS: Cefepime 2 GM in Sodium Chloride 0.9% 100 ML IVPB SCH (02:23)
--- NOTE | 2020-03-12 02:39 | PDOC.HHP ---
Hospitalist HPI - History of Present Illness Altered mental status History of Present Illness: This is an 85-year-old female patient who is a resident of [facility] with a history of dementia who was sent here on account of altered mental status. At baseline patient is sometimes oriented to self. Patient was not able to produce any history given her mental state On arrival her blood pressure was 129/66, pulse 66, respiratory rate 18, saturating 96 on room air. CBC was essentially within normal limits CMP showed a creatinine of 1.61 from a baseline of 1.26 a month ago. Lactate was elevated at 4.8. Urinalysis showed 4+ bacteria 25 leukocyte esterase concerning for UTI. CT of the brain revealed no acute intracerebral event. Chest x-ray showed no acute cardiopulmonary events. She was started on vancomycin and ceftriaxone. Hospitalist team consulted to admit. Hospitalist ROS - Review of Systems ROS unobtainable: due to mental status - Medication Medications: Active Medications Generic Name Dose Route Start Last Admin Trade Name Freq PRN Reason Stop Dose Admin Sodium Chloride 1,000 mls @ 100 mls/hr 03/11/20 23:15 03/12/20 00:13 Normal Saline 0.9% IV 03/12/20 09:00 1,000 mls .Q10H MANA Administration Cefepime HCl 2 gm/ Sodium 100 mls @ 200 mls/hr 03/12/20 02:00 03/12/20 02:23 Chloride IVPB 100 mls Q24HR MANA Administration Azithromycin 500 mg/ Sodium 250 mls @ 250 mls/hr 03/12/20 01:00 03/12/20 01:06 Chloride IVPB 250 mls Q24HR MANA Administration Hospitalist History - Past Medical History Other Medical History: Dementia, Type 2 diabetes mellitus, - Past Surgical History Past Surgical History: reports: no pertinent history - Family History Family History: reports: no pertinent history - Social History Living Situation: Correction Activity level: wheelchair bound - Exam General - other findings: Emaciated, generally contracted ENT: normocephalic atraumatic, no oropharyngeal lesions Heart: RRR, no murmur, no gallops Respiratory: CTAB, no wheezes, no rales Gastrointestinal: soft, non-tender, non-distended, normal bowel sounds Extremities: no cyanosis, no clubbing, no edema Neurological: cranial nerve grossly intact Neurological - other findings: Unable to correctly assess. Psychiatric: oriented to person Psychiatric - other findings: Occasionally responds to name Hospitalist Results - Labs Result Diagrams: 03/11/20 19:51 03/12/20 04:23 Lab results: WBC 6.5 thou/uL (4.8-10.8) 03/11/20 19:51 Hgb 13.6 g/dL (12.0-16.0) 03/11/20 19:51 Hct 41.8 % (36.0-47.0) 03/11/20 19:51 MCV 94.3 fL (78.0-98.0) 03/11/20 19:51 Plt Count 276 thou/uL (130-400) 03/11/20 19:51 Neutrophils % 86.1 % (42.0-75.0) H 03/11/20 19:51 Sodium 141 mmol/L (136-145) 03/11/20 19:51 Potassium 3.8 mmol/L (3.5-5.1) 03/11/20 19:51 Chloride 101 mmol/L (98-107) 03/11/20 19:51 Carbon Dioxide 24 mmol/L (23-31) 03/11/20 19:51 BUN 30 mg/dL (9.8-20.1) H 03/11/20 19:51 Creatinine 1.61 mg/dL (0.6-1.1) H 03/11/20 19:51 Glucose 236 mg/dL (83-110) H 03/11/20 19:51 Lactic Acid 2.4 mmol/L (0.5-2.2) H 03/11/20 22:48 Calcium 9.6 mg/dL (7.8-10.44) 03/11/20 19:51 Total Bilirubin 0.3 mg/dL (0.2-1.2) 03/11/20 19:51 AST 20 U/L (5-34) 03/11/20 19:51 ALT 25 U/L (8-55) 03/11/20 19:51 Alkaline Phosphatase 93 U/L (40-110) 03/11/20 19:51 Creatine Kinase 182 U/L (29-168) H 03/11/20 19:51 Serum Total Protein 7.2 g/dL (6.0-8.3) 03/11/20 19:51 Albumin 3.7 g/dL (3.4-4.8) 03/11/20 19:51 Urine Ketones 10 mg/dL (Negative) A 03/11/20 20:00 Urine Blood 1+ (Negative) A 03/11/20 20:00 Urine Nitrite Negative (Negative) 03/11/20 20:00 Ur Leukocyte Esterase 25 Breanna/uL (Negative) A 03/11/20 20:00 Urine RBC 0-3 HPF (0-3) 03/11/20 20:00 Urine WBC 0-3 HPF (0-3) 03/11/20 20:00 Ur Squamous Epith Cells 0-3 HPF (0-3) 03/11/20 20:00 Urine Bacteria 4+ HPF (None Seen) A 03/11/20 20:00 Hospitalist H&P A/P - Plan Plan: This is an 85-year-old female patient with a history of dementia, diabetes mellitus brought in from [facility] account of altered mental status concerning for UTI. She tested positive for Covid at the facility and here. Sepsis Patient altered mental status elevated lactic acidosis Likely from urinary tract infection We will continue on cefepime Received 2 L of normal saline in ED Trend lactate Follow-up on cultures UTI Treat as above Follow-up on cultures. Acute encephalopathy Likely secondary to UTI/possible sepsis We will monitor. Covid infection We will start on vitamins Check C RP, ferritin Monitor closely Diabetes mellitus Correctional insulin Monitor glucose. Poor clinical state Given patient's ability to Covid infection prognosis generally poor. Palliative care for goals of care discussion VT prophylaxisLovenox CODE STATUS to be discussed
[2020-03-12] MEDS ORDERED: Dextrose 50% Abboject 50 ML SYRINGE IVP PRN (03:15)
[2020-03-12] MEDS ORDERED: HumaLOG 300 UNITS/3 ML VIAL SC PRN (03:15)
[2020-03-12] MEDS ORDERED: Dextrose 5% in Water 1,000 ML IV PRN (03:15)
[2020-03-12 04:58] LABS: Anion Gap 14 mmol/L (10-20); BUN (Urea Nitrogen) 25 mg/dL (9.8-20.1); CRP (Inflammatory) Less than 0.50 mg/dL (= or < 0.5); Calc. Creatinine Clearance 33 mL/min (70-130); Calcium 8.1 mg/dL (7.8-10.44); Carbon Dioxide 24 mmol/L (23-31); Chloride 108 mmol/L (98-107); Glucose 113 mg/dL (83-110); Potassium 3.9 mmol/L (3.5-5.1); Sodium 142 mmol/L (136-145)
[2020-03-12 04:59] LABS: Lactic Acid 1.8 mmol/L (0.5-2.2)
--- NOTE | 2020-03-12 05:13 | PDOC.FMACP ---
Advance Care Planning - Note Summary: Advanced Care Planning was discussed. The diagnosis, prognosis and goals of care were discussed. No CODE STATUS patient is documented. Patient is alert oriented to give any information. We will contact family and facility.
[2020-03-12 06:36] LABS: #Lymphocytes 0.9 thou/uL (1.20-3.40); #Monocytes 0.5 thou/uL (0.11-0.59); #Neutrophils 6.1 thou/uL (1.40-6.50); %Eosinophils 0.2 % (0.0-10.0); %Lymphocytes 12.4 % (21.0-51.0); %Monocytes 7.1 % (0.0-10.0); %Neutrophils 80.3 % (42.0-75.0); Hemoglobin 12.2 g/dL (12.0-16.0); Mean Corpuscular HGB CONC 32.7 g/dL (32.0-36.0); Mean Corpuscular Hemoglobin 30.7 pg (27.0-31.0); Mean Corpuscular Volume 93.8 fL (78.0-98.0); Platelet Count 241 thou/uL (130-400); RBC Distribution Width 12.9 % (11.5-14.5); Red Blood Cell (RBC) Count 3.97 mill/uL (4.20-5.40); White Blood Cell (WBC) Count 7.6 thou/uL (4.8-10.8)
[2020-03-12] MEDS: Zinc Sulfate 220 MG CAP PO SCH ×2 (08:43→12:14)
[2020-03-12] MEDS: Cholecalciferol (Vitamin D3) 400 UNITS TAB PO SCH ×2 (08:43→12:14)
[2020-03-12] MEDS: Ascorbic Acid 500 mg Chewable Tablet PO SCH ×2 (08:43→12:14)
[2020-03-12] MEDS ORDERED: Enoxaparin Sodium 30 MG/0.3 ML SYRINGE SC SCH (09:00)
--- NOTE | 2020-03-12 12:36 | PDOC.HOSPP ---
- Subjective Encounter Date: 03/12/20 Encounter Time: 10:15 Subjective: Patient is sleeping she looks quite lethargic on awakening. Admitted with Covid pneumonia from a nursing facility. her sats are 99% in the room air. - Objective Vital Signs & Weight: Vital Signs (12 hours) Temp Pulse Resp BP Pulse Ox 03/12/20 12:00 97.7 F 80 16 121/67 99 03/12/20 08:50 96 03/12/20 07:42 97.1 F L 68 16 136/65 100 03/12/20 04:18 97.3 F L 65 116 H 136/65 100 Weight Weight 106 lb 1.6 oz I&O: 03/11/20 03/12/20 03/13/20 06:59 06:59 06:59 Intake Total 800 Balance 800 Result Diagrams: 03/12/20 06:20 03/12/20 04:23 Additional Labs: Accuchecks 03/12/20 04:59 POC Glucose 101 H Hospitalist ROS - Medication Medications: Active Medications Generic Name Dose Route Start Last Admin Trade Name Vasquez PRN Reason Stop Dose Admin Ascorbic Acid 1,000 mg 03/12/20 09:00 03/12/20 12:14 Ascorbic Acid 500 Mg Chewable Tablet PO Not Given DAILY MANA Cholecalciferol 400 units 03/12/20 09:00 03/12/20 12:14 Cholecalciferol (Vitamin D3) 400 Units Tab PO Not Given DAILY MANA Cefepime HCl 2 gm/ Sodium 100 mls @ 200 mls/hr 03/12/20 02:00 03/12/20 02:23 Chloride IVPB 100 mls Q24HR MANA Administration Azithromycin 500 mg/ Sodium 250 mls @ 250 mls/hr 03/12/20 01:00 03/12/20 01:06 Chloride IVPB 250 mls Q24HR MANA Administration Zinc Sulfate 220 mg 03/12/20 09:00 03/12/20 12:14 Zinc Sulfate 220 Mg Cap PO Not Given DAILY MANA - Exam General Appearance: ill appearing General - other findings: Lethargic Eye: PERRL, anicteric sclera ENT: normocephalic atraumatic Neck: supple Heart: RRR, normal peripheral pulses Respiratory: CTAB, normal chest expansion Gastrointestinal: soft, normal bowel sounds Neurological: cranial nerve grossly intact, no focal deficits Musculoskeletal: generalized weakness Psychiatric: somnolent, lethargic Hosp A/P - Plan 85-year-old female patient with a history of dementia, diabetes mellitus brought in from long-term account of altered mental status concerning for UTI. She tested positive for Covid at the facility and here. Sepsis secondary to Covid pneumonia and urinary tract infection Metabolic encephalopathy secondary to Covid pneumonia =cultures follow-up Acute encephalopathy Likely secondary to UTI/possible sepsis Covid infection -Inflammatory markers are high ferritin 403 and D-dimer 1.85 -She is satting well with a 96%; will start her on Decadron along with the above antibiotics. She may not need remdesivir at this point as her sats are much better. -Lovenox twice daily and zinc sulfate as well as vitamin D and C Diabetes mellitus Correctional insulin Monitor glucose. Poor clinical state Given patient's ability to Covid infection prognosis generally poor. -Given her advanced age we need to identify her CODE STATUS. Appreciate palliative care to be involved to help with this. [facility].
[2020-03-12] MEDS: Enoxaparin Sodium 30 MG/0.3 ML SYRINGE SC SCH (20:10)
[2020-03-12] MEDS ORDERED: FLU VACC QS2020-21(65YR UP)/PF 240 MCG/0.7 ML SYRINGE IM ONE (21:00)
[2020-03-13] MEDS: Azithromycin 500 MG in Sodium Chloride 0.9% 250 ML 250 ML IVPB SCH (00:30)
[2020-03-13] MEDS: Cefepime 2 GM in Sodium Chloride 0.9% 100 ML IVPB SCH (02:23)
[2020-03-13] MEDS: Enoxaparin Sodium 30 MG/0.3 ML SYRINGE SC SCH ×2 (10:00→21:40)
[2020-03-13] MEDS: Amlodipine 5 MG TAB PO SCH ×2 (11:45→20:27)
[2020-03-13] MEDS: Ascorbic Acid 500 mg Chewable Tablet PO SCH (11:45)
[2020-03-13] MEDS: Cholecalciferol (Vitamin D3) 400 UNITS TAB PO SCH (11:46)
[2020-03-13] MEDS: Dexamethasone 4 mg/ml Vial SLOW IVP SCH (11:46)
[2020-03-13] MEDS: Zinc Sulfate 220 MG CAP PO SCH (11:47)
--- NOTE | 2020-03-13 18:11 | PDOC.HOSPP ---
- Subjective Encounter Date: 03/13/20 Encounter Time: 11:30 Subjective: Patient still not able to be awake and alert to have any conversation. She also looks quite letter. She is afebrile and satting over 95% in the room air. - Objective Vital Signs & Weight: Vital Signs (12 hours) Temp Pulse Resp BP Pulse Ox 03/13/20 07:42 98.9 F 92 16 142/76 H 98 Weight Admit Weight 106 lb 1.6 oz Weight 106 lb 1.6 oz I&O: 03/12/20 03/13/20 03/14/20 06:59 06:59 06:59 Intake Total 800 1200 Balance 800 1200 Result Diagrams: 03/12/20 06:20 03/12/20 04:23 Additional Labs: Accuchecks 03/13/20 03/13/20 03/12/20 16:23 05:04 21:43 POC Glucose 96 144 H 132 H Hospitalist ROS - Medication Medications: Active Medications Generic Name Dose Route Start Last Admin Trade Name Freq PRN Reason Stop Dose Admin Amlodipine Besylate 5 mg 03/13/20 09:00 03/13/20 11:45 Amlodipine 5 Mg Tab PO Not Given BID MANA Ascorbic Acid 1,000 mg 03/12/20 09:00 03/13/20 11:45 Ascorbic Acid 500 Mg Chewable Tablet PO Not Given DAILY MANA Cholecalciferol 400 units 03/12/20 09:00 03/13/20 11:46 Cholecalciferol (Vitamin D3) 400 Units Tab PO Not Given DAILY MANA Dexamethasone 6 mg 03/13/20 09:00 03/13/20 11:46 Dexamethasone 4 Mg/Ml Vial SLOW IVP Not Given DAILY MANA Enoxaparin Sodium 30 mg 03/12/20 21:00 03/13/20 10:00 Enoxaparin Sodium 30 Mg/0.3 Ml Syringe SC 30 mg BID MANA Administration Cefepime HCl 2 gm/ Sodium 100 mls @ 200 mls/hr 03/12/20 02:00 03/13/20 02:23 Chloride IVPB 100 mls Q24HR MANA Administration Azithromycin 500 mg/ Sodium 250 mls @ 250 mls/hr 03/12/20 01:00 03/13/20 00:30 Chloride IVPB 250 mls Q24HR MANA Administration Sodium Chloride 10 ml 03/12/20 21:00 03/13/20 11:46 Flush - Normal Saline 10 Ml Syringe IVF Not Given Q12HR MANA Zinc Sulfate 220 mg 03/12/20 09:00 03/13/20 11:47 Zinc Sulfate 220 Mg Cap PO Not Given DAILY MANA - Exam General Appearance: NAD, awake alert Eye: PERRL ENT: normocephalic atraumatic Neck: supple Heart: RRR, normal peripheral pulses Respiratory: CTAB, normal chest expansion Gastrointestinal: soft, normal bowel sounds Neurological: cranial nerve grossly intact, no focal deficits Psychiatric: somnolent, lethargic Hosp A/P - Plan 85-year-old female patient with a history of dementia, diabetes mellitus brought in from shelter account of altered mental status concerning for UTI. She tested positive for Covid at the facility and here. Sepsis secondary to Covid pneumonia and urinary tract infection Metabolic encephalopathy secondary to Covid pneumonia =cultures follow-up Acute encephalopathy Likely secondary to UTI/possible sepsis Covid infection -Inflammatory markers are high ferritin 403 and D-dimer 1.85 -She is satting well with a 96%; will start her on Decadron along with the above antibiotics. She may not need remdesivir at this point as her sats are much be tter. -Lovenox twice daily and zinc sulfate as well as vitamin D and C Diabetes mellitus Correctional insulin Monitor glucose. Poor clinical state Given patient's ability to Covid infection prognosis generally poor. -Given her advanced age we need to identify her CODE STATUS. [facility]reciate [facility] to be involved to help with this. She is coming from her nursing facility.
[2020-03-14] MEDS: Azithromycin 500 MG in Sodium Chloride 0.9% 250 ML 250 ML IVPB SCH (01:30)
[2020-03-14] MEDS: Cefepime 2 GM in Sodium Chloride 0.9% 100 ML IVPB SCH (03:07)
[2020-03-14 07:20] LABS: Anion Gap 14 mmol/L (10-20); BUN (Urea Nitrogen) 13 mg/dL (9.8-20.1); Calc. Creatinine Clearance 38 mL/min (70-130); Calcium 7.8 mg/dL (7.8-10.44); Carbon Dioxide 26 mmol/L (23-31); Chloride 104 mmol/L (98-107); Glucose 99 mg/dL (83-110); Sodium 141 mmol/L (136-145)
[2020-03-14 07:27] LABS: Potassium 2.8 mmol/L (3.5-5.1)
[2020-03-14] MEDS: Ascorbic Acid 500 mg Chewable Tablet PO SCH (09:05)
[2020-03-14] MEDS: Cholecalciferol (Vitamin D3) 400 UNITS TAB PO SCH (09:05)
[2020-03-14] MEDS: Dexamethasone 4 mg/ml Vial SLOW IVP SCH (09:27)
[2020-03-14] MEDS: Enoxaparin Sodium 30 MG/0.3 ML SYRINGE SC SCH ×2 (09:29→20:27)
[2020-03-14] MEDS: Zinc Sulfate 220 MG CAP PO SCH (09:30)
[2020-03-14] MEDS: Amlodipine 5 MG TAB PO SCH ×2 (09:30→20:27)
--- NOTE | 2020-03-14 15:38 | PDOC.HOSPP ---
- Subjective Encounter Date: 03/14/20 Encounter Time: 10:28 Subjective: Patient still lethargic she is not responding much but she moans for tactile stimulation. Talk to the palliative. Her potassium is 2.8. Since she is still a n.p.o. will start her on IV supplementation. So she needs some nutrition. Will see whether peripheral parenteral nutrition versus tube feed would be a choice. - Objective Vital Signs & Weight: Vital Signs (12 hours) Temp Pulse Resp BP Pulse Ox 03/14/20 11:20 99.9 F H 87 18 121/69 100 03/14/20 09:30 98.8 F 87 16 148/67 H 100 03/14/20 04:03 98.9 F 89 16 137/57 L 100 Weight Admit Weight 106 lb 1.6 oz Weight 106 lb 1.6 oz I&O: 03/13/20 03/14/20 03/15/20 06:59 06:59 06:59 Intake Total 1200 0 120 Balance 1200 0 120 Result Diagrams: 03/12/20 06:20 03/14/20 06:25 Additional Labs: Accuchecks 03/13/20 03/13/20 03/13/20 20:27 16:23 11:34 POC Glucose 92 96 107 H 03/12/20 12:03 POC Glucose 111 H Hospitalist ROS - Medication Medications: Active Medications Generic Name Dose Route Start Last Admin Trade Name Freq PRN Reason Stop Dose Admin Amlodipine Besylate 5 mg 03/13/20 09:00 03/14/20 09:30 Amlodipine 5 Mg Tab PO 5 mg BID MANA Administration Ascorbic Acid 1,000 mg 03/12/20 09:00 03/14/20 09:05 Ascorbic Acid 500 Mg Chewable Tablet PO Not Given DAILY MANA Cholecalciferol 400 units 03/12/20 09:00 03/14/20 09:05 Cholecalciferol (Vitamin D3) 400 Units Tab PO Not Given DAILY MANA Dexamethasone 6 mg 03/13/20 09:00 03/14/20 09:27 Dexamethasone 4 Mg/Ml Vial SLOW IVP 6 mg DAILY MANA Administration Enoxaparin Sodium 30 mg 03/12/20 21:00 03/14/20 09:29 Enoxaparin Sodium 30 Mg/0.3 Ml Syringe SC 30 mg BID MANA Administration Cefepime HCl 2 gm/ Sodium 100 mls @ 200 mls/hr 03/12/20 02:00 03/14/20 03:07 Chloride IVPB 100 mls Q24HR MANA Administration Azithromycin 500 mg/ Sodium 250 mls @ 250 mls/hr 03/12/20 01:00 03/14/20 01:30 Chloride IVPB 250 mls Q24HR MANA Administration Potassium Chloride 40 meq/ 270 mls @ 67.5 mls/hr 03/14/20 09:00 03/14/20 14:02 Sodium Chloride IVPB 03/14/20 16:59 270 mls Q4H MANA Administration Sodium Chloride 10 ml 03/12/20 21:00 03/14/20 09:28 Flush - Normal Saline 10 Ml Syringe IVF 10 ml Q12HR MANA Administration Zinc Sulfate 220 mg 03/12/20 09:00 03/14/20 09:30 Zinc Sulfate 220 Mg Cap PO 220 mg DAILY MANA Administration - Exam General Appearance: ill appearing Eye: PERRL, anicteric sclera ENT: normocephalic atraumatic Neck: supple Heart: RRR Respiratory: CTAB, normal chest expansion Gastrointestinal: soft, normal bowel sounds Extremities: no cyanosis, 1+ LE edema Neurological: cranial nerve grossly intact, no focal deficits Psychiatric: not oriented, somnolent, lethargic Hosp A/P - Plan 85-year-old female patient with a history of dementia, diabetes mellitus brought in from detention account of altered mental status concerning for UTI. She tested positive for Covid at the facility and here. Sepsis secondary to Covid pneumonia and urinary tract infection Metabolic encephalopathy secondary to Covid pneumonia =cultures follow-up Acute encephalopathy Likely secondary to UTI/possible sepsis Covid infection -Inflammatory markers are high ferritin 403 and D-dimer 1.85 -She is satting well with a 96%; will start her on Decadron along with the above antibiotics. She may not need remdesivir at this point as her sats are much better. -Lovenox twice daily and zinc sulfate as well as vitamin D and C Diabetes mellitus Correctional insulin Monitor glucose. 28th Poor clinical state Given patient's ability to Covid infection prognosis generally poor. -Given her advanced age we need to identify her CODE STATUS. Appreciate palliative care to be involved to help with this. She is coming from her nursing facility. Palliative Garima toscano talked to the daughter Avelina Lu at [phone] Patient would remain full code for now. Since she is n.p.o. for the last 2 days will try to do tube feed at this point.
[2020-03-14] MEDS ORDERED: D5 1/2 NS w/40 mEq KCL 1,000 ML IV SCH (16:15)
[2020-03-14] MEDS: HumaLOG 300 UNITS/3 ML VIAL SC PRN (17:10)
[2020-03-15] MEDS: Azithromycin 500 MG in Sodium Chloride 0.9% 250 ML 250 ML IVPB SCH (01:33)
[2020-03-15] MEDS: Cefepime 2 GM in Sodium Chloride 0.9% 100 ML IVPB SCH (02:30)
[2020-03-15 07:51] LABS: Anion Gap 13 mmol/L (10-20); BUN (Urea Nitrogen) 14 mg/dL (9.8-20.1); Calc. Creatinine Clearance 44 mL/min (70-130); Carbon Dioxide 27 mmol/L (23-31); Chloride 104 mmol/L (98-107); Glucose 122 mg/dL (83-110); Potassium 3.1 mmol/L (3.5-5.1); Sodium 141 mmol/L (136-145)
[2020-03-15] MEDS: Amlodipine 5 MG TAB PO SCH ×2 (09:21→21:10)
[2020-03-15] MEDS: Ascorbic Acid 500 mg Chewable Tablet PO SCH (09:22)
[2020-03-15] MEDS: Dexamethasone 4 mg/ml Vial SLOW IVP SCH (09:23)
[2020-03-15] MEDS: Enoxaparin Sodium 30 MG/0.3 ML SYRINGE SC SCH ×2 (09:23→21:10)
[2020-03-15] MEDS: Cholecalciferol (Vitamin D3) 400 UNITS TAB PO SCH (09:23)
[2020-03-15] MEDS: Zinc Sulfate 220 MG CAP PO SCH (09:24)
--- NOTE | 2020-03-15 14:13 | PDOC.HOSPP ---
- Subjective Encounter Date: 03/15/20 Encounter Time: 11:40 Subjective: Patient remains a little lethargic but responding with few words only this morning. He remains well with in room air and satting 100%. She is afebrile. Potassium on the low side. - Objective Vital Signs & Weight: Vital Signs (12 hours) Temp Pulse Resp BP Pulse Ox 03/15/20 12:04 98.1 F 88 18 137/73 100 03/15/20 09:25 100 03/15/20 08:16 97.3 F L 74 18 123/61 100 03/15/20 05:00 98.1 F 68 18 124/63 100 Weight Admit Weight 106 lb 1.6 oz Weight 106 lb 1.6 oz I&O: 03/14/20 03/15/20 03/16/20 06:59 06:59 06:59 Intake Total 0 240 240 Balance 0 240 240 Result Diagrams: 03/12/20 06:20 03/15/20 06:24 Additional Labs: Accuchecks 03/15/20 03/15/20 03/14/20 11:21 04:53 20:09 POC Glucose 105 H 122 H 251 H 03/14/20 03/14/20 17:00 11:50 POC Glucose 222 H 132 H Hospitalist ROS - Medication Medications: Active Medications Generic Name Dose Route Start Last Admin Trade Name Vasquez PRN Reason Stop Dose Admin Amlodipine Besylate 5 mg 03/13/20 09:00 03/15/20 09:21 Amlodipine 5 Mg Tab PO 5 mg BID MANA Administration Ascorbic Acid 1,000 mg 03/12/20 09:00 03/15/20 09:22 Ascorbic Acid 500 Mg Chewable Tablet PO 1,000 mg DAILY MANA Administration Cholecalciferol 400 units 03/12/20 09:00 03/15/20 09:23 Cholecalciferol (Vitamin D3) 400 Units Tab PO 400 units DAILY MANA Administration Dexamethasone 6 mg 03/13/20 09:00 03/15/20 09:23 Dexamethasone 4 Mg/Ml Vial SLOW IVP 6 mg DAILY MANA Administration Enoxaparin Sodium 30 mg 03/12/20 21:00 03/15/20 09:23 Enoxaparin Sodium 30 Mg/0.3 Ml Syringe SC 30 mg BID MANA Administration Cefepime HCl 2 gm/ Sodium 100 mls @ 200 mls/hr 03/12/20 02:00 03/15/20 02:30 Chloride IVPB 100 mls Q24HR MANA Administration Azithromycin 500 mg/ Sodium 250 mls @ 250 mls/hr 03/12/20 01:00 03/15/20 01:33 Chloride IVPB 250 mls Q24HR MANA Administration Insulin Human Lispro 0 units 03/12/20 03:15 03/14/20 17:10 Humalog 300 Units/3 Ml Vial SC 3 unit .MILD SLIDING SCALE PRN Administration MILD SLIDING SCALE Protocol Sodium Chloride 10 ml 03/12/20 21:00 03/15/20 09:24 Flush - Normal Saline 10 Ml Syringe IVF 10 ml Q12HR MANA Administration Zinc Sulfate 220 mg 03/12/20 09:00 03/15/20 09:24 Zinc Sulfate 220 Mg Cap PO 220 mg DAILY MANA Administration - Exam General Appearance: NAD, awake alert Eye: PERRL ENT: normocephalic atraumatic Neck: supple Heart: RRR Respiratory: CTAB, normal chest expansion Gastrointestinal: soft, normal bowel sounds Neurological: cranial nerve grossly intact, no focal deficits Psychiatric: oriented to person Hosp A/P - Plan 85-year-old female patient with a history of dementia, diabetes mellitus brought in from long-term account of altered mental status concerning for UTI. She tested positive for Covid at the facility and here. Sepsis secondary to Covid pneumonia and urinary tract infection Metabolic encephalopathy secondary to Covid pneumonia =cultures follow-up Acute encephalopathy Likely secondary to UTI/possible sepsis Covid infection -Inflammatory markers are high ferritin 403 and D-dimer 1.85 -She is satting well with a 96%; will start her on Decadron along with the above antibiotics. She may not need remdesivir at this point as her sats are much better. -Lovenox twice daily and zinc sulfate as well as vitamin D and C Diabetes mellitus Correctional insulin Monitor glucose. Poor clinical state Given patient's ability to Covid infection prognosis generally poor. -Given her advanced age we need to identify her CODE STATUS. Appreciate palliative care to be involved to help with this. She is coming from her nursing facility. Palliative Garima toscano talked to the daughter Avelina Lu at [phone] Patient would remain full code for now. Since she is n.p.o. for the last 2 days will try to do tube feed at this point. Patient appeared to have some minimal p.o. intake. Will encourage her including protein supplements. Physical therapy consult placed. There is no urine cultures as of yet. repeat the urine analysis and follow with the culture results as patient getting IV antibiotix.
[2020-03-15] MEDS ORDERED: Potassium Chloride 20 MEQ TAB PO SCH (14:15)
[2020-03-15 16:07] LABS: Bacteria/HPF None Seen HPF (None Seen); Bilirubin Negative (Negative); Blood, Urine 1+ (Negative); Clarity Clear (Clear); Glucose, Urine (Dipstick) Greater than 1000 mg/dL (Negative); Ketone, Urine Negative (Negative); Leukocyte Negative Leu/uL (Negative); Nitrite Negative (Negative); Protein, Urine (Dipstick) 10 mg/dL (Neg-Trace); RBC/HPF 0-3 HPF (0-3); Specific Gravity, Urine 1.013 (1.002-1.036); Squamous Epithelial 0-3 HPF (0-3); Urobilinogen Normal mg/dL (Less than 2); WBC/HPF 0-3 HPF (0-3); pH, Urine 6.5 (5.0-9.0)
[2020-03-16] MEDS: Azithromycin 500 MG in Sodium Chloride 0.9% 250 ML 250 ML IVPB SCH (02:00)
[2020-03-16] MEDS: Cefepime 2 GM in Sodium Chloride 0.9% 100 ML IVPB SCH (03:00)
[2020-03-16 08:32] LABS: Anion Gap 11 mmol/L (10-20); BUN (Urea Nitrogen) 15 mg/dL (9.8-20.1); Calc. Creatinine Clearance 41 mL/min (70-130); Carbon Dioxide 29 mmol/L (23-31); Chloride 104 mmol/L (98-107); Glucose 122 mg/dL (83-110); Potassium 3.4 mmol/L (3.5-5.1); Sodium 141 mmol/L (136-145)
[2020-03-16] MEDS: Amlodipine 5 MG TAB PO SCH ×2 (08:41→20:07)
[2020-03-16] MEDS: Dexamethasone 4 mg/ml Vial SLOW IVP SCH (08:41)
[2020-03-16] MEDS: Zinc Sulfate 220 MG CAP PO SCH (08:41)
[2020-03-16] MEDS: Ascorbic Acid 500 mg Chewable Tablet PO SCH (08:41)
[2020-03-16] MEDS: Cholecalciferol (Vitamin D3) 400 UNITS TAB PO SCH (08:41)
[2020-03-16] MEDS: Enoxaparin Sodium 30 MG/0.3 ML SYRINGE SC SCH ×2 (08:42→20:07)
--- NOTE | 2020-03-16 13:02 | PDOC.HOSPP ---
- Subjective Encounter Date: 03/16/20 Encounter Time: 10:50 Subjective: Patient still appeared the same and persistent palpation she is able to mom only few words. When physical therapy approached her this morning and when she was quiet agitated to a level that she does not want anybody to touch her. She is able to have some p.o. intake. After discussing with the nurse it has been noted that her mentation is seems to be the best at baseline. She may not be able to cooperate fully with physical therapy. - Objective Vital Signs & Weight: Vital Signs (12 hours) Temp Pulse Resp BP Pulse Ox 03/16/20 08:41 77 03/16/20 08:01 98.2 F 77 18 116/69 98 03/16/20 05:00 98.3 F 92 18 122/67 99 Weight Admit Weight 106 lb 1.6 oz Weight 106 lb 1.6 oz I&O: 03/15/20 03/16/20 03/17/20 06:59 06:59 06:59 Intake Total 240 1490 Balance 240 1490 Result Diagrams: 03/12/20 06:20 03/16/20 07:44 Additional Labs: Accuchecks 03/16/20 03/16/20 03/15/20 11:42 04:34 21:15 POC Glucose 154 H 156 H 212 H 03/15/20 16:26 POC Glucose 220 H Hospitalist ROS - Medication Medications: Active Medications Generic Name Dose Route Start Last Admin Trade Name Freq PRN Reason Stop Dose Admin Amlodipine Besylate 5 mg 03/13/20 09:00 03/16/20 08:41 Amlodipine 5 Mg Tab PO 5 mg BID MANA Administration Ascorbic Acid 1,000 mg 03/12/20 09:00 03/16/20 08:41 Ascorbic Acid 500 Mg Chewable Tablet PO 1,000 mg DAILY MANA Administration Cholecalciferol 400 units 03/12/20 09:00 03/16/20 08:41 Cholecalciferol (Vitamin D3) 400 Units Tab PO 400 units DAILY MANA Administration Dexamethasone 6 mg 03/13/20 09:00 03/16/20 08:41 Dexamethasone 4 Mg/Ml Vial SLOW IVP 6 mg DAILY MANA Administration Enoxaparin Sodium 30 mg 03/12/20 21:00 03/16/20 08:42 Enoxaparin Sodium 30 Mg/0.3 Ml Syringe SC 30 mg BID MANA Administration Cefepime HCl 2 gm/ Sodium 100 mls @ 200 mls/hr 03/12/20 02:00 03/16/20 03:00 Chloride IVPB 100 mls Q24HR MANA Administration Azithromycin 500 mg/ Sodium 250 mls @ 250 mls/hr 03/12/20 01:00 03/16/20 02:00 Chloride IVPB 250 mls Q24HR MANA Administration Insulin Human Lispro 0 units 03/12/20 03:15 03/14/20 17:10 Humalog 300 Units/3 Ml Vial SC 3 unit .MILD SLIDING SCALE PRN Administration MILD SLIDING SCALE Protocol Sodium Chloride 10 ml 03/12/20 21:00 03/16/20 08:42 Flush - Normal Saline 10 Ml Syringe IVF 10 ml Q12HR MANA Administration Zinc Sulfate 220 mg 03/12/20 09:00 03/16/20 08:41 Zinc Sulfate 220 Mg Cap PO 220 mg DAILY MANA Administration - Exam General Appearance: NAD, awake alert ENT: normocephalic atraumatic Neck: supple Heart: RRR, normal peripheral pulses Respiratory: CTAB, normal chest expansion Gastrointestinal: soft, normal bowel sounds Neurological: cranial nerve grossly intact, no focal deficits Psychiatric: not oriented Hosp A/P - Plan 85-year-old female patient with a history of dementia, diabetes mellitus brought in from detention account of altered mental status concerning for UTI. She tested positive for Covid at the facility and here. Sepsis secondary to Covid pneumonia and urinary tract infection Metabolic encephalopathy secondary to Covid pneumonia =cultures follow-up Acute encephalopathy Likely secondary to UTI/possible sepsis Covid infection -Inflammatory markers are high ferritin 403 and D-dimer 1.85 -She is satting well with a 96%; will start her on Decadron along with the above antibiotics. She may not need remdesivir at this point as her sats are much better. -Lovenox twice daily and zinc sulfate as well as vitamin D and C Diabetes mellitus Correctional insulin Monitor glucose. 28th Poor clinical state Given patient's ability to Covid infection prognosis generally poor. -Given her advanced age we need to identify her CODE STATUS. Appreciate palliative care to be involved to help with this. She is coming from her nursing facility. Palliative Garima toscano talked to the daughter Avelina Lu at [phone] Patient would remain full code for now. Since she is n.p.o. for the last 2 days will try to do tube feed at this point. Patient appeared to have some minimal p.o. intake. Will encourage her including protein supplements. Physical therapy consult placed. There is no urine cultures as of yet. repeat the urine analysis and follow with the culture results as patient getting IV antibiotix. 30 When physical therapy approached her this morning and when she was quiet agitated to a level that she does not want anybody to touch her. She is able to have some p.o. intake. After discussing with the nurse it has been noted that her mentation is seems to be the best at baseline. She may not be able to cooperate fully with physical therapy. Both nitrate and leukocyte esterase esterase negative and the repeat urine analysis no need to follow-up with any cultures. I will switch the antibiotics to p.o. We will plan to send back to the nursing facility probably in 1 to 2 days
[2020-03-16] MEDS: HumaLOG 300 UNITS/3 ML VIAL SC PRN (17:34)
[2020-03-17] MEDS: Cholecalciferol (Vitamin D3) 400 UNITS TAB PO SCH (09:01)
[2020-03-17] MEDS: Dexamethasone 4 MG TAB PO SCH (09:01)
[2020-03-17] MEDS: Azithromycin 250 MG TAB PO SCH (09:01)
[2020-03-17] MEDS: Amlodipine 5 MG TAB PO SCH ×2 (09:02→20:33)
[2020-03-17] MEDS: Ascorbic Acid 500 mg Chewable Tablet PO SCH (09:02)
[2020-03-17] MEDS: Zinc Sulfate 220 MG CAP PO SCH (09:03)
[2020-03-17] MEDS: Enoxaparin Sodium 30 MG/0.3 ML SYRINGE SC SCH ×2 (09:03→20:33)
[2020-03-17] MEDS ORDERED: Sodium Chloride 0.9% 250 ML IV PRN ×2 (11:36→13:37)
[2020-03-17] MEDS ORDERED: Dextrose 5 %-0.45 % NaCl 1,000 ML IV SCH (11:45)
--- NOTE | 2020-03-17 13:40 | PDOC.HOSPP ---
- Subjective Encounter Date: 03/17/20 Encounter Time: 11:10 Subjective: Patient will looks quite lethargic she is more disoriented than yesterday. Her blood pressure is on the low side her sats are also 93% in the room air. - Objective Vital Signs & Weight: Vital Signs (12 hours) Temp Pulse Resp BP BP Pulse Ox 03/17/20 11:20 98.4 F 75 20 79/40 L 93 L 03/17/20 08:05 97.8 F 73 20 113/63 96 03/17/20 05:00 97.9 F 74 18 108/54 L 100 Weight Admit Weight 106 lb 1.6 oz Weight 106 lb 1.6 oz I&O: 03/16/20 03/17/20 03/18/20 06:59 06:59 06:59 Intake Total 1490 Output Total 100 Balance 1490 -100 Result Diagrams: 03/12/20 06:20 03/16/20 07:44 Additional Labs: Accuchecks 03/17/20 03/17/20 03/16/20 11:21 05:40 20:10 POC Glucose 73 98 172 H 03/16/20 16:50 POC Glucose 191 H Hospitalist ROS - Medication Medications: Active Medications Generic Name Dose Route Start Last Admin Trade Name Freq PRN Reason Stop Dose Admin Amlodipine Besylate 5 mg 03/13/20 09:00 03/17/20 09:02 Amlodipine 5 Mg Tab PO 5 mg BID MANA Administration Ascorbic Acid 1,000 mg 03/12/20 09:00 03/17/20 09:02 Ascorbic Acid 500 Mg Chewable Tablet PO 1,000 mg DAILY MANA Administration Azithromycin 500 mg 03/17/20 09:00 03/17/20 09:01 Azithromycin 250 Mg Tab PO 03/20/20 09:01 500 mg DAILY MANA Administration Cholecalciferol 400 units 03/12/20 09:00 03/17/20 09:01 Cholecalciferol (Vitamin D3) 400 Units Tab PO 400 units DAILY MANA Administration Dexamethasone 6 mg 03/17/20 08:00 03/17/20 09:01 Dexamethasone 4 Mg Tab PO 6 mg QAM-WM MANA Administration Enoxaparin Sodium 30 mg 03/12/20 21:00 03/17/20 09:03 Enoxaparin Sodium 30 Mg/0.3 Ml Syringe SC 30 mg BID MANA Administration Insulin Human Lispro 0 units 03/12/20 03:15 03/16/20 17:34 Humalog 300 Units/3 Ml Vial SC 2 unit .MILD SLIDING SCALE PRN Administration MILD SLIDING SCALE Protocol Sodium Chloride 10 ml 03/12/20 21:00 03/17/20 09:03 Flush - Normal Saline 10 Ml Syringe IVF 10 ml Q12HR MANA Administration Zinc Sulfate 220 mg 03/12/20 09:00 03/17/20 09:03 Zinc Sulfate 220 Mg Cap PO 220 mg DAILY MANA Administration - Exam General Appearance: NAD, awake alert Eye: PERRL ENT: normocephalic atraumatic Neck: supple Heart: RRR, normal peripheral pulses Respiratory: CTAB, normal chest expansion Gastrointestinal: normal bowel sounds Neurological: cranial nerve grossly intact, no focal deficits Musculoskeletal: generalized weakness Psychiatric: not oriented Hosp A/P - Plan 85-year-old female patient with a history of dementia, diabetes mellitus brought in from [facility] account of altered mental status concerning for UTI. She tested positive for Covid at the facility and here. Sepsis secondary to Covid pneumonia and urinary tract infection Metabolic encephalopathy secondary to Covid pneumonia =cultures follow-up Acute encephalopathy Likely secondary to UTI/possible sepsis Covid infection -Inflammatory markers are high ferritin 403 and D-dimer 1.85 -She is satting well with a 96%; will start her on Decadron along with the above antibiotics. She may not need remdesivir at this point as her sats are much better. -Lovenox twice daily and zinc sulfate as well as vitamin D and C Diabetes mellitus Correctional insulin Monitor glucose. 28 Poor clinical state Given patient's ability to Covid infection prognosis generally poor. -Given her advanced age we need to identify her CODE STATUS. Appreciate palliative care to be involved to help with this. She is coming from her nursing facility. Palliative Garima toscano talked to the daughter Avelina Lu at [phone] Patient would remain full code for now. Since she is n.p.o. for the last 2 days will try to do tube feed at this point. 29 Patient appeared to have some minimal p.o. intake. Will encourage her including protein supplements. Physical therapy consult placed. There is no urine cultures as of yet. repeat the urine analysis and follow with the culture results as patient getting IV antibiotix. 30th When physical therapy approached her this morning and when she was quiet agitated to a level that she does not want anybody to touch her. She is able to have some p.o. intake. After discussing with the nurse it has been noted that her mentation is seems to be the best at baseline. She may not be able to cooperate fully with physical therapy. Both nitrate and leukocyte esterase esterase negative and the repeat urine analysis no need to follow-up with any cultures. I will switch the antibiotics to p.o. We will plan to send back to the nursing facility probably in 1 to 2 days. 31st Due to her poor overall conditioning her blood pressure is down. And with poor p.o. intake her blood glucose also lately 73. We are going to give her some IV fluid as well as D5. With advanced age and dementia she may not benefit with aggressive feeding intervention including PEG tube evaluation as it might not improve the quality of life. Will discuss with the family member to discuss options including pa lliative/comfort care at this point. Palliative care on board. Discussed the CODE STATUS with the family member and current feeding status. Patient lives at the nursing facility.
[2020-03-18] MEDS: Dexamethasone 4 MG TAB PO SCH ×2 (08:47→08:49)
[2020-03-18] MEDS: Cholecalciferol (Vitamin D3) 400 UNITS TAB PO SCH ×2 (08:48→08:50)
[2020-03-18] MEDS: Azithromycin 250 MG TAB PO SCH ×2 (08:48→08:49)
[2020-03-18] MEDS: Zinc Sulfate 220 MG CAP PO SCH ×2 (08:48→08:50)
[2020-03-18] MEDS: Amlodipine 5 MG TAB PO SCH ×2 (08:49→20:13)
[2020-03-18] MEDS: Ascorbic Acid 500 mg Chewable Tablet PO SCH ×2 (08:49→11:11)
[2020-03-18] MEDS: Enoxaparin Sodium 30 MG/0.3 ML SYRINGE SC SCH ×3 (08:50→20:14)
--- NOTE | 2020-03-18 14:46 | PDOC.HOSPP ---
- Subjective Encounter Date: 03/18/20 Encounter Time: 10:25 Subjective: Patient is still having low p.o. intake but somewhat oriented able to say her name this morning. Her blood pressure is better this morning. Satting still 91% with 2 L oxygen. - Objective Vital Signs & Weight: Vital Signs (12 hours) Temp Pulse Resp BP BP Pulse Ox 03/18/20 11:15 98.1 F 73 22 H 114/62 91 L 03/18/20 08:49 73 03/18/20 07:40 98.1 F 73 22 H 115/56 L 93 L 03/18/20 04:00 99.0 F 71 18 102/48 L 96 03/18/20 03:04 95 Weight Admit Weight 106 lb 1.6 oz Weight 106 lb 1.6 oz I&O: 03/17/20 03/18/20 03/19/20 06:59 06:59 06:59 Output Total 100 Balance -100 Result Diagrams: 03/12/20 06:20 03/16/20 07:44 Additional Labs: Accuchecks 03/18/20 03/18/20 03/17/20 11:16 04:48 20:24 POC Glucose 123 H 145 H 198 H 03/17/20 16:23 POC Glucose 119 H Hospitalist ROS - Medication Medications: Active Medications Generic Name Dose Route Start Last Admin Trade Name Vasquez PRN Reason Stop Dose Admin Amlodipine Besylate 5 mg 03/13/20 09:00 03/18/20 08:49 Amlodipine 5 Mg Tab PO Not Given BID [facility] Ascorbic Acid 1,000 mg 03/12/20 09:00 03/18/20 11:11 Ascorbic Acid 500 Mg Chewable Tablet PO Not Given DAILY MANA Azithromycin 500 mg 03/17/20 09:00 03/18/20 08:49 Azithromycin 250 Mg Tab PO 03/20/20 09:01 Not Given DAILY MANA Cholecalciferol 400 units 03/12/20 09:00 03/18/20 08:50 Cholecalciferol (Vitamin D3) 400 Units Tab PO Not Given DAILY MANA Dexamethasone 6 mg 03/17/20 08:00 03/18/20 08:49 Dexamethasone 4 Mg Tab PO Not Given [facility] Enoxaparin Sodium 30 mg 03/12/20 21:00 03/18/20 11:12 Enoxaparin Sodium 30 Mg/0.3 Ml Syringe SC Not Given BID MANA Insulin Human Lispro 0 units 03/12/20 03:15 03/16/20 17:34 Humalog 300 Units/3 Ml Vial SC 2 unit .MILD SLIDING SCALE PRN Administration MILD SLIDING SCALE Protocol Sodium Chloride 10 ml 03/12/20 21:00 03/18/20 08:48 Flush - Normal Saline 10 Ml Syringe IVF Not Given Q12HR MANA Zinc Sulfate 220 mg 03/12/20 09:00 03/18/20 08:50 Zinc Sulfate 220 Mg Cap PO Not Given DAILY MANA - Exam General Appearance: NAD, ill appearing Eye: PERRL ENT: normocephalic atraumatic Neck: supple Heart: RRR, normal peripheral pulses Respiratory: CTAB, normal chest expansion Gastrointestinal: soft, normal bowel sounds Neurological: cranial nerve grossly intact, no focal deficits Psychiatric: normal affect, normal behavior, A&O x 3 Hosp A/P - Plan 85-year-old female patient with a history of dementia, diabetes mellitus brought in from [facility] account of altered mental status concerning for UTI. She tested positive for Covid at the facility and here. Sepsis secondary to Covid pneumonia and urinary tract infection Metabolic encephalopathy secondary to Covid pneumonia =cultures follow-up Acute encephalopathy Likely secondary to UTI/possible sepsis Covid infection -Inflammatory markers are high ferritin 403 and D-dimer 1.85 -She is satting well with a 96%; will start her on Decadron along with the above antibiotics. She may not need remdesivir at this point as her sats are much better. -Lovenox twice daily and zinc sulfate as well as vitamin D and C Diabetes mellitus Correctional insulin Monitor glucose. When physical therapy approached her, she was quiet agitated to a level that she does not want anybody to touch her. She is able to have some p.o. intake. After discussing with the nurse it has been noted that her mentation is seems to be the at baseline. She may not be able to cooperate fully with physical therapy. With advanced age and dementia she may not benefit with aggressive feeding intervention including PEG tube evaluation as it might not improve the quality of life. Will discuss with the family member to discuss options including palliative/comfort care at this point. Palliative care on board. CODE STATUS HAS to be discussed with the family member and current feeding status. Patient lives at the nursing facility. Palliative Garima toscano talked to the daughter Avelina Lu at [phone] Patient would remain full code for now.
[2020-03-19] MEDS: Ascorbic Acid 500 mg Chewable Tablet PO SCH (09:03)
[2020-03-19] MEDS: Dexamethasone 4 MG TAB PO SCH (09:03)
[2020-03-19] MEDS: Amlodipine 5 MG TAB PO SCH ×2 (09:03→20:17)
[2020-03-19] MEDS: Zinc Sulfate 220 MG CAP PO SCH (09:03)
[2020-03-19] MEDS: Azithromycin 250 MG TAB PO SCH (09:03)
[2020-03-19] MEDS: Enoxaparin Sodium 30 MG/0.3 ML SYRINGE SC SCH ×2 (09:04→20:17)
[2020-03-19] MEDS: Cholecalciferol (Vitamin D3) 400 UNITS TAB PO SCH (09:04)
--- NOTE | 2020-03-19 11:10 | EKG ---
Test Reason : Blood Pressure : / mmHG Vent. Rate : 069 BPM Atrial Rate : 069 BPM P-R Int : 114 ms QRS Dur : 082 ms QT Int : 430 ms P-R-T Axes : 021 -36 051 degrees QTc Int : 460 ms Sinus rhythm with Fusion complexes Left axis deviation Nonspecific ST and T wave abnormality Abnormal ECG Confirmed by ODILON LAI DO ([id number]), science editor UTE KENDRICK ([id number]) on 03/19/2020 11:10:16 AM Referred By: Confirmed By:ODILON LAI DO
[2020-03-19 12:51] LABS: ALT (SGPT) 66 U/L (8-55); AST (SGOT) 75 U/L (5-34); Albumin 2.9 g/dL (3.4-4.8); Alkaline Phosphatase 108 U/L (40-110); Anion Gap 15 mmol/L (10-20); BUN (Urea Nitrogen) 17 mg/dL (9.8-20.1); Band 45 % (5-11); Bilirubin, Total 0.3 mg/dL (0.2-1.2); Calc. Creatinine Clearance 43 mL/min (70-130); Calcium 8.2 mg/dL (7.8-10.44); Carbon Dioxide 27 mmol/L (23-31); Chloride 104 mmol/L (98-107); Eosinophils 2 % (0-10); Globulin 3.1 g/dL (2.4-3.5); Glucose 155 mg/dL (83-110); Hemoglobin 12.4 g/dL (12.0-16.0); Lymphocytes 3 % (21-51); MDiff Complete? YES; Magnesium 2.1 mg/dL (1.6-2.6); Mean Corpuscular HGB CONC 33.5 g/dL (32.0-36.0); Mean Corpuscular Hemoglobin 31.6 pg (27.0-31.0); Mean Corpuscular Volume 94.1 fL (78.0-98.0); Mean Platelet Volume 7.8 fL (7.4-10.4); Monocytes 2 % (0-10); Neutrophil 44 % (42-75); Phosphorus 2.9 mg/dL (2.3-4.7); Platelet Count 278 thou/uL (130-400); Platelet Morphology Comment Appears Adequate; Polychromasia SLIGHT = 2-3 cells (100X) (0-2/hpf); Potassium 3.1 mmol/L (3.5-5.1); RBC Distribution Width 13.1 % (11.5-14.5); Reactive Lymphocytes 4 % (0-10); Red Blood Cell (RBC) Count 3.93 mill/uL (4.20-5.40); Reflex for Review?? YES; Sodium 143 mmol/L (136-145); Target Cells SLIGHT = 2-5 cells (100X) (0-1/hpf); White Blood Cell (WBC) Count 12.6 thou/uL (4.8-10.8)
[2020-03-19] MEDS ORDERED: Potassium Chloride 40 MEQ in Premix Bag 1 BAG IVPB SCH (13:30)
[2020-03-19] MEDS ORDERED: Potassium Chloride 40 MEQ in Sodium Chloride 0.9% 250 ML 250 ML IVPB SCH (13:45)
--- NOTE | 2020-03-19 21:04 | PDOC.HOSPP ---
- Subjective Encounter Date: 03/19/20 Encounter Time: 14:30 non-verbal Subjective: Patient seen and examined for encephalopathy. No overnight events. - Objective Vital Signs & Weight: Vital Signs (12 hours) Temp Pulse Resp BP BP Pulse Ox 03/19/20 20:17 91 03/19/20 20:00 98 F 93 18 119/66 95 03/19/20 16:00 98 F 91 18 122/68 100 03/19/20 12:00 98 F 79 17 116/67 98 Weight Admit Weight 106 lb 1.6 oz Weight 106 lb 1.6 oz I&O: 03/18/20 03/19/20 03/20/20 06:59 06:59 06:59 Output Total 300 Balance -300 Result Diagrams: 03/19/20 12:20 03/19/20 12:20 Additional Labs: Accuchecks 03/19/20 03/19/20 12:07 04:05 POC Glucose 112 H 117 H Radiology Reviewed by me: Yes (CT brainnegative) Hospitalist ROS - Review of Systems ROS unobtainable: due to mental status - Medication Medications: Active Medications Generic Name Dose Route Start Last Admin Trade Name Freq PRN Reason Stop Dose Admin Amlodipine Besylate 5 mg 03/13/20 09:00 03/19/20 20:17 Amlodipine 5 Mg Tab PO 5 mg BID MANA Administration Ascorbic Acid 1,000 mg 03/12/20 09:00 03/19/20 09:03 Ascorbic Acid 500 Mg Chewable Tablet PO 1,000 mg DAILY MANA Administration Azithromycin 500 mg 03/17/20 09:00 03/19/20 09:03 Azithromycin 250 Mg Tab PO 03/20/20 09:01 500 mg DAILY MANA Administration Cholecalciferol 400 units 03/12/20 09:00 03/19/20 09:04 Cholecalciferol (Vitamin D3) 400 Units Tab PO 400 units DAILY MANA Administration Dexamethasone 6 mg 03/17/20 08:00 03/19/20 09:03 Dexamethasone 4 Mg Tab PO 6 mg QAM-WM MANA Administration Enoxaparin Sodium 30 mg 03/12/20 21:00 03/19/20 20:17 Enoxaparin Sodium 30 Mg/0.3 Ml Syringe SC 30 mg BID MANA Administration Insulin Human Lispro 0 units 03/12/20 03:15 03/16/20 17:34 Humalog 300 Units/3 Ml Vial SC 2 unit .MILD SLIDING SCALE PRN Administration MILD SLIDING SCALE Protocol Sodium Chloride 10 ml 03/12/20 21:00 03/19/20 20:18 Flush - Normal Saline 10 Ml Syringe IVF 10 ml Q12HR MANA Administration Zinc Sulfate 220 mg 03/12/20 09:00 03/19/20 09:03 Zinc Sulfate 220 Mg Cap PO 220 mg DAILY MANA Administration - Exam General Appearance: ill appearing Neck: supple, no JVD Heart: RRR, no gallops Respiratory: no wheezes, no rales, rhonchi Gastrointestinal: soft, non-distended, normal bowel sounds Extremities: no cyanosis, no clubbing Musculoskeletal: generalized weakness Hosp A/P - Plan DVT proph w/lovenox, DVT proph w/SCDs Toxic metabolic encephalopathyPOA Sepsis due to UTI/COVID 19 infection Lactic acidosisPOA Acute kidney injuryPOA Dementia Diabetes mellitus type II Swallow dysfunction Plan: Discontinue azithromycin. Start IV ceftriaxone. Patient has significant bandemia. Will discontinue Decadron. Add probiotics. Recheck labs in a.m. Continue sliding scale. Chest x-ray in a.m. Continue other medications as above
[2020-03-19] MEDS: cefTRIAXone\\ROCEPHIN 1 GM in Sodium Chloride 0.9% 100 ML IVPB SCH (21:25)
[2020-03-20 06:18] LABS: #Monocytes 0.5 thou/uL (0.11-0.59); #Neutrophils 8.6 thou/uL (1.40-6.50); %Basophils 0.3 % (0.0-1.0); %Eosinophils 0.1 % (0.0-10.0); %Lymphocytes 9.7 % (21.0-51.0); %Monocytes 5.1 % (0.0-10.0); %Neutrophils 84.8 % (42.0-75.0); Hemoglobin 12.4 g/dL (12.0-16.0); Mean Corpuscular HGB CONC 32.1 g/dL (32.0-36.0); Mean Corpuscular Hemoglobin 29.9 pg (27.0-31.0); Platelet Count 357 thou/uL (130-400); RBC Distribution Width 13.1 % (11.5-14.5); Red Blood Cell (RBC) Count 4.15 mill/uL (4.20-5.40); White Blood Cell (WBC) Count 10.1 thou/uL (4.8-10.8)
[2020-03-20 06:48] LABS: ALT (SGPT) 55 U/L (8-55); AST (SGOT) 48 U/L (5-34); Albumin 3.1 g/dL (3.4-4.8); Alkaline Phosphatase 106 U/L (40-110); Anion Gap 18 mmol/L (10-20); BUN (Urea Nitrogen) 18 mg/dL (9.8-20.1); Bilirubin, Total 0.3 mg/dL (0.2-1.2); CRP (Inflammatory) 8.46 mg/dL (= or < 0.5); Calc. Creatinine Clearance 46 mL/min (70-130); Calcium 8.5 mg/dL (7.8-10.44); Carbon Dioxide 25 mmol/L (23-31); Chloride 107 mmol/L (98-107); Globulin 3.2 g/dL (2.4-3.5); Glucose 172 mg/dL (83-110); Magnesium 1.9 mg/dL (1.6-2.6); Phosphorus 2.6 mg/dL (2.3-4.7); Protein, Total 6.3 g/dL (6.0-8.3); Sodium 147 mmol/L (136-145)
--- NOTE | 2020-03-20 09:16 | RAD ---
Chest one view HISTORY: Dyspnea. Follow-up. COMPARISON: 03/11/2020. FINDINGS: Cardiac silhouette is magnified by projection. Pulmonary vasculature are unremarkable. Mediastinum is midline. Elevation of the right hemidiaphragm stable. Scattered areas of mild parenchymal scarring are unchanged in appearance. Left lung remains hyperinfl ated. Lung markings extend beyond skinfold over the lateral aspect of each side of the chest that mimics pn eumothoraces. IMPRESSION : No acute abnormalities are demonstrated.
[2020-03-20] MEDS: Zinc Sulfate 220 MG CAP PO SCH (09:55)
[2020-03-20] MEDS: Ascorbic Acid 500 mg Chewable Tablet PO SCH (09:55)
[2020-03-20] MEDS: Cholecalciferol (Vitamin D3) 400 UNITS TAB PO SCH (09:55)
[2020-03-20] MEDS: Saccharomyces boulardii 250 MG CAP PO SCH (09:55)
[2020-03-20] MEDS: Enoxaparin Sodium 30 MG/0.3 ML SYRINGE SC SCH ×2 (09:55→19:23)
[2020-03-20] MEDS: Amlodipine 5 MG TAB PO SCH ×2 (09:55→19:22)
--- NOTE | 2020-03-20 19:05 | PDOC.HOSPP ---
- Subjective Encounter Date: 03/20/20 Encounter Time: 14:30 non-verbal Subjective: Patient seen and examined for COVID-19 pneumonia with altered mentation. Poor appetite. Remains confused - Objective Vital Signs & Weight: Vital Signs (12 hours) Temp Pulse Resp BP Pulse Ox 03/20/20 08:00 97.9 F 93 20 128/68 95 Weight Admit Weight 106 lb 1.6 oz Weight 106 lb 1.6 oz I&O: 03/19/20 03/20/20 03/21/20 06:59 06:59 06:59 Intake Total 50 Output Total 300 Balance -300 50 Result Diagrams: 03/21/20 06:32 03/21/20 06:32 Additional Labs: Accuchecks 03/20/20 03/20/20 03/19/20 15:50 10:50 20:53 POC Glucose 129 H 147 H 170 H Abnormal Lab Results - Last 48 hrs 03/19/20 06:14: C-Reactive Protein 10.77 H 03/19/20 12:20: Ferritin 1120.60 H 03/19/20 12:20: D-Dimer 1.00 H 03/19/20 12:20: Potassium 3.1 L, AST 75 H, ALT 66 H, Albumin 2.9 L, Albumin/Globulin Ratio 0.9 L 03/19/20 12:20: WBC 12.6 H, RBC 3.93 L, MCH 31.6 H, Band Neuts % (Manual) 45 H, Lymphocytes % (Manual) 3 L 03/20/20 05:44: Sodium 147 H, Potassium 3.0 L, AST 48 H, C-Reactive Protein 8.46 H, Albumin 3.1 L, Albumin/Globulin Ratio 1.0 L 03/20/20 05:44: RBC 4.15 L, Neutrophils % 84.8 H, Lymphocytes % 9.7 L, Neutrophils # 8.6 H, Lymphocytes # 1.0 L Radiology Reviewed by me: Yes (Chest x-rayno new changes) Hospitalist ROS - Review of Systems ROS unobtainable: due to mental status (Left) - Medication Medications: Active Medications Generic Name Dose Route Start Last Admin Trade Name Freq PRN Reason Stop Dose Admin Amlodipine Besylate 5 mg 03/13/20 09:00 03/20/20 09:55 Amlodipine 5 Mg Tab PO Not Given BID MANA Ascorbic Acid 1,000 mg 03/12/20 09:00 03/20/20 09:55 Ascorbic Acid 500 Mg Chewable Tablet PO Not Given DAILY MANA Cholecalciferol 400 units 03/12/20 09:00 03/20/20 09:55 Cholecalciferol (Vitamin D3) 400 Units Tab PO Not Given DAILY MANA Enoxaparin Sodium 30 mg 03/12/20 21:00 03/20/20 09:55 Enoxaparin Sodium 30 Mg/0.3 Ml Syringe SC Not Given BID MANA Ceftriaxone Sodium 1 gm/ 100 mls @ 200 mls/hr 03/19/20 22:00 03/19/20 21:25 Sodium Chloride IVPB 100 mls Q24HR MANA Administration Insulin Human Lispro 0 units 03/12/20 03:15 03/16/20 17:34 Humalog 300 Units/3 Ml Vial SC 2 unit .MILD SLIDING SCALE PRN Administration MILD SLIDING SCALE Protocol Saccharomyces Boulardii 250 mg 03/20/20 09:00 03/20/20 09:55 Saccharomyces Boulardii 250 Mg Cap PO Not Given DAILY MANA Sodium Chloride 10 ml 03/12/20 21:00 03/20/20 09:55 Flush - Normal Saline 10 Ml Syringe IVF 10 ml Q12HR MANA Administration Zinc Sulfate 220 mg 03/12/20 09:00 03/20/20 09:55 Zinc Sulfate 220 Mg Cap PO Not Given DAILY MANA - Exam General Appearance: ill appearing Neck: supple, no JVD Heart: RRR, no gallops Respiratory: rhonchi Gastrointestinal: soft, non-distended Extremities: no cyanosis Hosp A/P - Plan DVT proph w/lovenox, DVT proph w/SCDs Toxic metabolic encephalopathyPOA Sepsis due to UTI/COVID 19 infection Lactic acidosis Acute kidney injury Dementia Diabetes mellitus type II Swallow dysfunction Plan: Chest x-ray reviewed. Bandemia has resolved. Continue empiric antibiotics. Steroids discontinued. Replace electrolytes. Add dextrose due to poor appetite. Monitor inflammatory markers. Consult palliative care. A.m. labs 1/2 Discontinue azithromycin. Start IV ceftriaxone. Patient has significant bandemia. Will discontinue Decadron. Add probiotics. Recheck labs in a.m. Continue sliding scale. Chest x-ray in a.m. Continue other medications as ab ove
[2020-03-20] MEDS ORDERED: Potassium Phosphate 30 MMOL in Sodium Chloride 0.9% 500 ML IVPB SCH (19:15)
[2020-03-20] MEDS ORDERED: D5 1/2 NS w/40 mEq KCL 1,000 ML IV SCH (19:15)
[2020-03-20] MEDS: D5 1/2 NS w/40 mEq KCL 1,000 ML IV SCH (19:21)
[2020-03-20] MEDS: cefTRIAXone\\ROCEPHIN 1 GM in Sodium Chloride 0.9% 100 ML IVPB SCH (19:22)
[2020-03-21 07:11] LABS: ALT (SGPT) 42 U/L (8-55); AST (SGOT) 34 U/L (5-34); Albumin 2.9 g/dL (3.4-4.8); Alkaline Phosphatase 87 U/L (40-110); Anion Gap 16 mmol/L (10-20); BUN (Urea Nitrogen) 13 mg/dL (9.8-20.1); Bilirubin, Total 0.3 mg/dL (0.2-1.2); Calc. Creatinine Clearance 49 mL/min (70-130); Calcium 7.7 mg/dL (7.8-10.44); Carbon Dioxide 25 mmol/L (23-31); Chloride 109 mmol/L (98-107); Globulin 2.9 g/dL (2.4-3.5); Glucose 142 mg/dL (83-110); Magnesium 1.7 mg/dL (1.6-2.6); Phosphorus 3.7 mg/dL (2.3-4.7); Potassium 3.2 mmol/L (3.5-5.1); Protein, Total 5.8 g/dL (6.0-8.3); Sodium 147 mmol/L (136-145)
[2020-03-21 07:13] LABS: #Eosinphils 0.1 thou/uL (0.0-0.7); #Lymphocytes 1.2 thou/uL (1.20-3.40); #Monocytes 0.6 thou/uL (0.11-0.59); #Neutrophils 9.2 thou/uL (1.40-6.50); %Basophils 0.2 % (0.0-1.0); %Eosinophils 0.7 % (0.0-10.0); %Monocytes 5.2 % (0.0-10.0); %Neutrophils 82.9 % (42.0-75.0); Hemoglobin 11.2 g/dL (12.0-16.0); Mean Corpuscular HGB CONC 31.5 g/dL (32.0-36.0); Mean Corpuscular Hemoglobin 29.3 pg (27.0-31.0); Mean Corpuscular Volume 92.8 fL (78.0-98.0); Mean Platelet Volume 7.6 fL (7.4-10.4); Platelet Count 355 thou/uL (130-400); RBC Distribution Width 12.9 % (11.5-14.5); Red Blood Cell (RBC) Count 3.84 mill/uL (4.20-5.40); White Blood Cell (WBC) Count 11.1 thou/uL (4.8-10.8)
[2020-03-21] MEDS: Amlodipine 5 MG TAB PO SCH ×2 (08:52→19:17)
[2020-03-21] MEDS: Ascorbic Acid 500 mg Chewable Tablet PO SCH (08:53)
[2020-03-21] MEDS: Cholecalciferol (Vitamin D3) 400 UNITS TAB PO SCH (08:53)
[2020-03-21] MEDS: Zinc Sulfate 220 MG CAP PO SCH (08:53)
[2020-03-21] MEDS: Saccharomyces boulardii 250 MG CAP PO SCH (08:53)
[2020-03-21] MEDS: Enoxaparin Sodium 30 MG/0.3 ML SYRINGE SC SCH ×2 (09:00→19:17)
[2020-03-21] MEDS: D5 1/2 NS w/40 mEq KCL 1,000 ML IV SCH (10:07)
[2020-03-21] MEDS ORDERED: D5W-AA 4.25% with LYTES 1,000 ML BAG IV SCH (18:00)
[2020-03-21] MEDS ORDERED: D5W-AA 4.25% with LYTES 1,000 ML IV SCH (18:15)
[2020-03-21] MEDS: Mirtazapine 15 MG TAB PO SCH (19:17)
[2020-03-21] MEDS: Divalproex Sodium 125 mg Sprinkle Capsule PO SCH (19:17)
[2020-03-21] MEDS ORDERED: OLANZapine 2.5 MG TAB PO SCH (21:00)
[2020-03-21] MEDS: cefTRIAXone\\ROCEPHIN 1 GM in Sodium Chloride 0.9% 100 ML IVPB SCH (21:36)
[2020-03-22 09:18] LABS: #Eosinphils 0.1 thou/uL (0.0-0.7); #Lymphocytes 1.1 thou/uL (1.20-3.40); #Monocytes 0.6 thou/uL (0.11-0.59); #Neutrophils 12.8 thou/uL (1.40-6.50); %Basophils 0.1 % (0.0-1.0); %Eosinophils 0.5 % (0.0-10.0); %Lymphocytes 7.4 % (21.0-51.0); %Monocytes 3.8 % (0.0-10.0); %Neutrophils 88.2 % (42.0-75.0); Hemoglobin 12.1 g/dL (12.0-16.0); Mean Corpuscular HGB CONC 32.4 g/dL (32.0-36.0); Mean Corpuscular Hemoglobin 30.2 pg (27.0-31.0); Mean Corpuscular Volume 93.2 fL (78.0-98.0); Mean Platelet Volume 7.1 fL (7.4-10.4); Platelet Count 394 thou/uL (130-400); RBC Distribution Width 13.2 % (11.5-14.5); Red Blood Cell (RBC) Count 4.02 mill/uL (4.20-5.40); White Blood Cell (WBC) Count 14.5 thou/uL (4.8-10.8)
[2020-03-22] MEDS: Amlodipine 5 MG TAB PO SCH ×2 (09:26→21:28)
[2020-03-22] MEDS: Cholecalciferol (Vitamin D3) 400 UNITS TAB PO SCH (09:26)
[2020-03-22] MEDS: Saccharomyces boulardii 250 MG CAP PO SCH (09:26)
[2020-03-22] MEDS: Aspirin 81 mg Enteric Coated Tablet PO SCH (09:26)
[2020-03-22] MEDS: Zinc Sulfate 220 MG CAP PO SCH (09:26)
[2020-03-22] MEDS: Ascorbic Acid 500 mg Chewable Tablet PO SCH (09:27)
[2020-03-22] MEDS: Enoxaparin Sodium 30 MG/0.3 ML SYRINGE SC SCH ×2 (09:27→21:28)
[2020-03-22] MEDS: Divalproex Sodium 125 mg Sprinkle Capsule PO SCH ×2 (09:29→21:28)
[2020-03-22 09:52] LABS: ALT (SGPT) 44 U/L (8-55); AST (SGOT) 33 U/L (5-34); Albumin 3.2 g/dL (3.4-4.8); Alkaline Phosphatase 98 U/L (40-110); Anion Gap 15 mmol/L (10-20); BUN (Urea Nitrogen) 10 mg/dL (9.8-20.1); Bilirubin, Total 0.5 mg/dL (0.2-1.2); Calc. Creatinine Clearance 47 mL/min (70-130); Calcium 8.6 mg/dL (7.8-10.44); Carbon Dioxide 30 mmol/L (23-31); Chloride 105 mmol/L (98-107); Globulin 3.3 g/dL (2.4-3.5); Glucose 134 mg/dL (83-110); Magnesium 1.8 mg/dL (1.6-2.6); Phosphorus 2.9 mg/dL (2.3-4.7); Potassium 3.7 mmol/L (3.5-5.1); Protein, Total 6.5 g/dL (6.0-8.3); Sodium 146 mmol/L (136-145)
[2020-03-22 10:00] LABS: Thyroid Stimulating Hormone 1.4873 uIU/mL (0.35-4.94)
--- NOTE | 2020-03-22 10:00 | PDOC.HOSPP ---
- Subjective Encounter Date: 03/21/20 Encounter Time: 17:00 Subjective: Patient seen and examined for encephalopathy. Not eating well per RN. No other overnight events. - Objective Vital Signs & Weight: Vital Signs (12 hours) Temp Pulse Resp BP Pulse Ox 03/22/20 09:26 81 03/22/20 07:31 98.1 F 81 14 139/85 100 Weight Admit Weight 106 lb 1.6 oz Weight 106 lb 1.6 oz I&O: 03/21/20 03/22/20 03/23/20 06:59 06:59 06:59 Intake Total 50 1050 Balance 50 1050 Result Diagrams: 03/22/20 08:59 03/22/20 08:59 Additional Labs: Accuchecks 03/21/20 03/21/20 03/21/20 20:21 16:20 11:12 POC Glucose 144 H 191 H 158 H 03/20/20 03/19/20 03/18/20 04:45 17:33 20:27 POC Glucose 137 H 163 H 119 H Hospitalist ROS - Review of Systems ROS unobtainable: due to mental status - Medication Medications: Active Medications Generic Name Dose Route Start Last Admin Trade Name Freq PRN Reason Stop Dose Admin Amlodipine Besylate 5 mg 03/13/20 09:00 03/22/20 09:26 Amlodipine 5 Mg Tab PO 5 mg BID MANA Administration Ascorbic Acid 1,000 mg 03/12/20 09:00 03/22/20 09:27 Ascorbic Acid 500 Mg Chewable Tablet PO 1,000 mg DAILY MANA Administration Aspirin 81 mg 03/22/20 09:00 03/22/20 09:26 Aspirin 81 Mg Enteric Coated Tablet PO 81 mg DAILY MANA Administration Cholecalciferol 400 units 03/12/20 09:00 03/22/20 09:26 Cholecalciferol (Vitamin D3) 400 Units Tab PO 400 units DAILY MANA Administration Divalproex Sodium 125 mg 03/21/20 21:00 03/22/20 09:29 Divalproex Sodium 125 Mg Sprinkle Capsule PO 125 mg BID MANA Administration Enoxaparin Sodium 30 mg 03/12/20 21:00 03/22/20 09:27 Enoxaparin Sodium 30 Mg/0.3 Ml Syringe SC 30 mg BID MANA Administration Ceftriaxone Sodium 1 gm/ 100 mls @ 200 mls/hr 03/19/20 22:00 03/21/20 21:36 Sodium Chloride IVPB Not Given Q24HR MANA Amino Acids/Electrolytes/Dextrose 2,000 mls @ 83.3 mls/hr 03/21/20 18:15 03/21/20 19:21 Clinimix E 4.25/5 IV 03/22/20 18:14 2,000 mls INF MANA Administration Insulin Human Lispro 0 units 03/12/20 03:15 03/16/20 17:34 Humalog 300 Units/3 Ml Vial SC 2 unit .MILD SLIDING SCALE PRN Administration MILD SLIDING SCALE Protocol Mirtazapine 15 mg 03/21/20 21:00 03/21/20 19:17 Mirtazapine 15 Mg Tab PO Not Given HS MANA Olanzapine 2.5 mg 03/21/20 21:00 03/21/20 19:17 Olanzapine 2.5 Mg Tab PO Not Given HS MANA Saccharomyces Boulardii 250 mg 03/20/20 09:00 03/22/20 09:26 Saccharomyces Boulardii 250 Mg Cap PO 250 mg DAILY MANA Administration Sodium Chloride 10 ml 03/12/20 21:00 03/22/20 09:27 Flush - Normal Saline 10 Ml Syringe IVF Not Given Q12HR MANA Zinc Sulfate 220 mg 03/12/20 09:00 03/22/20 09:26 Zinc Sulfate 220 Mg Cap PO 220 mg DAILY MANA Administration - Exam General Appearance: ill appearing Heart: RRR, no gallops Respiratory: no rales, rhonchi Gastrointestinal: soft, no guarding, no rigidity Extremities: no cyanosis Psychiatric: not oriented Hosp A/P - Plan DVT proph w/SCDs Toxic metabolic encephalopathyPOA Sepsis due to UTI/COVID 19 infection Lactic acidosis Acute kidney injury Dementia Diabetes mellitus type II Swallow dysfunction Plan: Continue IV fluids. Palliative care input appreciated. Discussed at length with daughter over the phone. Continue modified diet. Continue antibiotics. Continue current medications as above. A.m. labs 1/3 Chest x-ray reviewed. Bandemia has resolved. Continue empiric antibiotics. Steroids discontinued. Replace electrolytes. Add dextrose due to poor appetite. Monitor inflammatory markers. Consult palliative care. A.m. labs 1/2 Discontinue azithromycin. Start IV ceftriaxone. Patient has significant bandemia. Will discontinue Decadron. Add probiotics. Recheck labs in a.m. Continue sliding scale. Chest x-ray in a.m. Continue other medications as above
[2020-03-22 13:48] LABS: Ferritin 857.75 ng/mL (10-291)
[2020-03-22 15:08] LABS: SARS-CoV-2 IgG Ab Reactive (NonReactive); SARS-CoV-2 IgG Index 2.29 S/CO (< 1.40)
[2020-03-22] MEDS ORDERED: D5W-AA 4.25% with LYTES 1,000 ML BAG IV SCH (16:45)
[2020-03-22] MEDS: Mirtazapine 15 MG TAB PO SCH (21:28)
[2020-03-22] MEDS: OLANZapine 10 MG VIAL IM SCH (21:29)
[2020-03-22] MEDS: Valproate Sodium 500 MG in Sodium Chloride 0.9% 100 ML IVPB SCH (22:17)
[2020-03-22] MEDS: cefTRIAXone\\ROCEPHIN 1 GM in Sodium Chloride 0.9% 100 ML IVPB SCH (22:18)
--- NOTE | 2020-03-22 23:53 | PDOC.HOSPP ---
- Subjective Encounter Date: 03/22/20 Encounter Time: 13:45 Subjective: Patient seen and examined for encephalopathy. No significant change in mentation. Does not have IV access. Very poor appetite. - Objective Vital Signs & Weight: Vital Signs (12 hours) Temp Pulse Resp BP Pulse Ox 03/22/20 21:28 109 H 03/22/20 20:00 98.2 F 109 H 22 H 132/76 97 03/22/20 15:40 98.1 F 85 14 101/45 L 100 Weight Admit Weight 106 lb 1.6 oz Weight 106 lb 1.6 oz I&O: 03/21/20 03/22/20 03/23/20 06:59 06:59 06:59 Intake Total 50 1050 Balance 50 1050 Result Diagrams: 03/23/20 06:31 03/23/20 06:31 Additional Labs: Accuchecks 03/22/20 03/22/20 03/22/20 20:17 15:36 11:24 POC Glucose 139 H 142 H 147 H 03/21/20 16:20 POC Glucose 191 H Abnormal Lab Results - Last 48 hrs 03/22/20 08:59: Sodium 146 H, Albumin 3.2 L, Albumin/Globulin Ratio 1.0 L 03/22/20 08:59: WBC 14.5 H, RBC 4.02 L, MPV 7.1 L, Neutrophils % 88.2 H, Lymphocytes % 7.4 L, Neutrophils # 12.8 H, Lymphocytes # 1.1 L, Monocytes # 0.6 H 03/22/20 08:59: C-Reactive Protein 7.05 H 03/22/20 08:59: Ferritin 857.75 H 03/22/20 08:59: D-Dimer 0.96 H 03/22/20 08:59: Vitamin B12 Greater than 2000 H Hospitalist ROS - Review of Systems ROS unobtainable: due to mental status - Medication Medications: Active Medications Generic Name Dose Route Start Last Admin Trade Name Freq PRN Reason Stop Dose Admin Amlodipine Besylate 5 mg 03/13/20 09:00 03/22/20 21:28 Amlodipine 5 Mg Tab PO 5 mg BID MANA Administration Ascorbic Acid 1,000 mg 03/12/20 09:00 03/22/20 09:27 Ascorbic Acid 500 Mg Chewable Tablet PO 1,000 mg DAILY MANA Administration Aspirin 81 mg 03/22/20 09:00 03/22/20 09:26 Aspirin 81 Mg Enteric Coated Tablet PO 81 mg DAILY MANA Administration Cholecalciferol 400 units 03/12/20 09:00 03/22/20 09:26 Cholecalciferol (Vitamin D3) 400 Units Tab PO 400 units DAILY MANA Administration Divalproex Sodium 125 mg 03/22/20 21:00 03/22/20 21:28 Divalproex Sodium 125 Mg Sprinkle Capsule PO 125 mg BID MANA Administration Enoxaparin Sodium 30 mg 03/12/20 21:00 03/22/20 21:28 Enoxaparin Sodium 30 Mg/0.3 Ml Syringe SC 30 mg BID MANA Administration Ceftriaxone Sodium 1 gm/ 100 mls @ 200 mls/hr 03/19/20 22:00 03/22/20 22:18 Sodium Chloride IVPB Not Given Q24HR MANA Valproic Acid 500 mg/ Sodium 105 mls @ 100 mls/hr 03/22/20 21:00 03/22/20 22:17 Chloride IVPB Not Given BID [facility] Insulin Human Lispro 0 units 03/12/20 03:15 03/16/20 17:34 Humalog 300 Units/3 Ml Vial SC 2 unit .MILD SLIDING SCALE PRN Administration MILD SLIDING SCALE Protocol Mirtazapine 15 mg 03/21/20 21:00 03/22/20 21:28 Mirtazapine 15 Mg Tab PO 15 mg HS MANA Administration Olanzapine 2.5 mg 03/22/20 21:00 03/22/20 21:29 Olanzapine 10 Mg Vial IM 2.5 mg QPM MANA Administration Saccharomyces Boulardii 250 mg 03/20/20 09:00 03/22/20 09:26 Saccharomyces Boulardii 250 Mg Cap PO 250 mg DAILY MANA Administration Sodium Chloride 10 ml 03/12/20 21:00 03/22/20 22:17 Flush - Normal Saline 10 Ml Syringe IVF Not Given Q12HR MANA Zinc Sulfate 220 mg 03/12/20 09:00 03/22/20 09:26 Zinc Sulfate 220 Mg Cap PO 220 mg DAILY MANA Administration - Exam General Appearance: ill appearing Neck: supple, no JVD Heart: RRR, no gallops Respiratory: rales, rhonchi Gastrointestinal: soft, no guarding, no rigidity Extremities: no cyanosis Psychiatric: not oriented Hosp A/P - Plan DVT proph w/lovenox, DVT proph w/SCDs Toxic metabolic encephalopathyPOA Sepsis due to UTI/COVID 19 infection Lactic acidosis Acute kidney injury Dementia Diabetes mellitus type II Swallow dysfunction Plan: Patient continues to have very poor appetite. Remains confused. Discussed with the family. Will try to restart PPN if IV line can be stabilized. Patient pulled the IV access last night. Family is okay with restraining if needed. Continue other medications as above. Continue empiric antibiotics. Continue sliding scale. We will try to change p.o. meds to IV since patient is refusing most of the p.o. meds. 03/21 Continue IV fluids. Palliative care input appreciated. Discussed at length with daughter over the phone. Continue modified diet. Continue antibiotics. Continue current medications as above. A.m. labs 1/3 Chest x-ray reviewed. Bandemia has resolved. Continue empiric antibiotics. Steroids discontinued. Replace electrolytes. Add dextrose due to poor appetite. Monitor inflammatory markers. Consult palliative care. A.m. labs 1/2 Discontinue azithromycin. Start IV ceftriaxone. Patient has significant bandemia. Will discontinue Decadron. Add probiotics. Recheck labs in a.m. Continue sliding scale. Chest x-ray in a.m. Continue other medications as above
[2020-03-23 06:40] LABS: #Eosinphils 0.1 thou/uL (0.0-0.7); #Lymphocytes 1.1 thou/uL (1.20-3.40); #Monocytes 0.5 thou/uL (0.11-0.59); #Neutrophils 9.9 thou/uL (1.40-6.50); %Basophils 0.1 % (0.0-1.0); %Eosinophils 0.6 % (0.0-10.0); %Lymphocytes 9.2 % (21.0-51.0); %Monocytes 4.1 % (0.0-10.0); %Neutrophils 85.9 % (42.0-75.0); Hemoglobin 11.9 g/dL (12.0-16.0); Mean Corpuscular HGB CONC 32.2 g/dL (32.0-36.0); Mean Corpuscular Hemoglobin 29.9 pg (27.0-31.0); Mean Corpuscular Volume 92.8 fL (78.0-98.0); Mean Platelet Volume 6.9 fL (7.4-10.4); Platelet Count 374 thou/uL (130-400); RBC Distribution Width 13.1 % (11.5-14.5); Red Blood Cell (RBC) Count 3.97 mill/uL (4.20-5.40); White Blood Cell (WBC) Count 11.5 thou/uL (4.8-10.8)
[2020-03-23 07:04] LABS: ALT (SGPT) 36 U/L (8-55); AST (SGOT) 24 U/L (5-34); Albumin 2.9 g/dL (3.4-4.8); Alkaline Phosphatase 92 U/L (40-110); Anion Gap 13 mmol/L (10-20); BUN (Urea Nitrogen) 18 mg/dL (9.8-20.1); Bilirubin, Total 0.4 mg/dL (0.2-1.2); Calc. Creatinine Clearance 44 mL/min (70-130); Calcium 8.3 mg/dL (7.8-10.44); Carbon Dioxide 29 mmol/L (23-31); Chloride 104 mmol/L (98-107); Globulin 3.2 g/dL (2.4-3.5); Glucose 185 mg/dL (83-110); Magnesium 1.9 mg/dL (1.6-2.6); Phosphorus 2.8 mg/dL (2.3-4.7); Protein, Total 6.1 g/dL (6.0-8.3); Sodium 143 mmol/L (136-145)
[2020-03-23 07:07] LABS: Potassium 2.9 mmol/L (3.5-5.1)
[2020-03-23] MEDS ORDERED: Potassium Chloride 20 MEQ/100 ML PREMIX BAG IVPB SCH (08:45)
[2020-03-23] MEDS ORDERED: Magnesium 2 GM/50 ML 2 GM in Premix Bag 1 BAG IVPB SCH (09:30)
[2020-03-23] MEDS: Saccharomyces boulardii 250 MG CAP PO SCH (09:33)
[2020-03-23] MEDS: Zinc Sulfate 220 MG CAP PO SCH (09:34)
[2020-03-23] MEDS: Divalproex Sodium 125 mg Sprinkle Capsule PO SCH (09:34)
[2020-03-23] MEDS: Aspirin 81 mg Enteric Coated Tablet PO SCH (09:35)
[2020-03-23] MEDS: Ascorbic Acid 500 mg Chewable Tablet PO SCH (09:35)
[2020-03-23] MEDS: Amlodipine 5 MG TAB PO SCH ×2 (09:35→19:17)
[2020-03-23] MEDS: Valproate Sodium 500 MG in Sodium Chloride 0.9% 100 ML IVPB SCH ×2 (09:36→20:01)
[2020-03-23] MEDS: Cholecalciferol (Vitamin D3) 400 UNITS TAB PO SCH (09:36)
[2020-03-23] MEDS: Enoxaparin Sodium 30 MG/0.3 ML SYRINGE SC SCH ×2 (09:36→20:01)
[2020-03-23] MEDS ORDERED: Potassium Chloride 40 MEQ in Sodium Chloride 0.9% 250 ML 250 ML IVPB SCH (09:45)
[2020-03-23] MEDS: D5W-AA 4.25% with LYTES 1,000 ML IV SCH (16:42)
[2020-03-23] MEDS: Mirtazapine 15 MG TAB PO SCH (19:17)
[2020-03-23] MEDS: OLANZapine 10 MG VIAL IM SCH (20:00)
[2020-03-23] MEDS: cefTRIAXone\\ROCEPHIN 1 GM in Sodium Chloride 0.9% 100 ML IVPB SCH (20:03)
--- NOTE | 2020-03-23 21:06 | PDOC.HOSPP ---
- Subjective Encounter Date: 03/23/20 Encounter Time: 15:30 non-verbal Subjective: Patient seen and examined for encephalopathy. No significant change in mentation. Very poor appetite. On PPN - Objective Vital Signs & Weight: Vital Signs (12 hours) Temp Pulse Resp BP Pulse Ox 03/23/20 20:00 99.7 F H 95 20 128/73 94 L 03/23/20 19:17 86 03/23/20 16:00 98.1 F 86 16 99 03/23/20 09:35 84 Weight Admit Weight 106 lb 1.6 oz Weight 106 lb 1.6 oz I&O: 03/22/20 03/23/20 03/24/20 06:59 06:59 06:59 Intake Total 1050 Balance 1050 Result Diagrams: 03/23/20 06:31 03/23/20 06:31 Additional Labs: Accuchecks 03/23/20 03/23/20 03/23/20 20:50 15:21 11:40 POC Glucose 167 H 132 H 181 H 03/23/20 05:34 POC Glucose 193 H Abnormal Lab Results - Last 48 hrs 03/22/20 08:59: Sodium 146 H, Albumin 3.2 L, Albumin/Globulin Ratio 1.0 L 03/22/20 08:59: WBC 14.5 H, RBC 4.02 L, MPV 7.1 L, Neutrophils % 88.2 H, Lymphocytes % 7.4 L, Neutrophils # 12.8 H, Lymphocytes # 1.1 L, Monocytes # 0.6 H 03/22/20 08:59: C-Reactive Protein 7.05 H 03/22/20 08:59: Ferritin 857.75 H 03/22/20 08:59: D-Dimer 0.96 H 03/22/20 08:59: Vitamin B12 Greater than 2000 H 03/23/20 06:31: Potassium 2.9 L*, Albumin 2.9 L, Albumin/Globulin Ratio 0.9 L 03/23/20 06:31: WBC 11.5 H, RBC 3.97 L, Hgb 11.9 L, MPV 6.9 L, Neutrophils % 85.9 H, Lymphocytes % 9.2 L, Neutrophils # 9.9 H, Lymphocytes # 1.1 L Radiology Reviewed by me: Yes (Chest x-ray from [facility]) Hospitalist ROS - Review of Systems ROS unobtainable: due to mental status - Medication Medications: Active Medications Generic Name Dose Route Start Last Admin Trade Name Vasquez PRN Reason Stop Dose Admin Amlodipine Besylate 5 mg 03/13/20 09:00 03/23/20 19:17 Amlodipine 5 Mg Tab PO Not Given BID MANA Ascorbic Acid 1,000 mg 03/12/20 09:00 03/23/20 09:35 Ascorbic Acid 500 Mg Chewable Tablet PO 1,000 mg DAILY MANA Administration Aspirin 81 mg 03/22/20 09:00 03/23/20 09:35 Aspirin 81 Mg Enteric Coated Tablet PO 81 mg DAILY MANA Administration Cholecalciferol 400 units 03/12/20 09:00 03/23/20 09:36 Cholecalciferol (Vitamin D3) 400 Units Tab PO 400 units DAILY MANA Administration Enoxaparin Sodium 30 mg 03/12/20 21:00 03/23/20 20:01 Enoxaparin Sodium 30 Mg/0.3 Ml Syringe SC 30 mg BID MANA Administration Ceftriaxone Sodium 1 gm/ 100 mls @ 200 mls/hr 03/19/20 22:00 03/23/20 20:03 Sodium Chloride IVPB 100 mls Q24HR MANA Administration Valproic Acid 500 mg/ Sodium 105 mls @ 100 mls/hr 03/22/20 21:00 03/23/20 20:01 Chloride IVPB 105 mls BID MANA Administration Amino Acids/Electrolytes/Dextrose 1,000 mls @ 83.3 mls/hr 03/23/20 14:15 03/23/20 16:42 Clinimix E 4.25/5 IV 1,000 mls INF MANA Administration Insulin Human Lispro 0 units 03/12/20 03:15 03/16/20 17:34 Humalog 300 Units/3 Ml Vial SC 2 unit .MILD SLIDING SCALE PRN Administration MILD SLIDING SCALE Protocol Mirtazapine 15 mg 03/21/20 21:00 03/23/20 19:17 Mirtazapine 15 Mg Tab PO Not Given HS MANA Olanzapine 2.5 mg 03/22/20 21:00 03/23/20 20:00 Olanzapine 10 Mg Vial IM 2.5 mg QPM MANA Administration Saccharomyces Boulardii 250 mg 03/20/20 09:00 03/23/20 09:33 Saccharomyces Boulardii 250 Mg Cap PO 250 mg DAILY MANA Administration Sodium Chloride 10 ml 03/12/20 21:00 03/23/20 19:18 Flush - Normal Saline 10 Ml Syringe IVF Not Given Q12HR MANA Zinc Sulfate 220 mg 03/12/20 09:00 03/23/20 09:34 Zinc Sulfate 220 Mg Cap PO 220 mg DAILY MANA Administration - Exam General Appearance: ill appearing Neck: supple, no JVD Heart: RRR, no gallops Respiratory: no wheezes, no rales, rhonchi Gastrointestinal: soft, no guarding, no rigidity Extremities: no cyanosis Neurological: no new deficit Hosp A/P - Plan DVT proph w/lovenox, DVT proph w/SCDs Toxic metabolic encephalopathy Sepsis due to UTI/COVID 19 infection Hypokalemia Lactic acidosis Acute kidney injury Dementia Diabetes mellitus type II Swallow dysfunction Plan: Will replace potassium and magnesium. Continue PPN. WBC count is improving. Recheck inflammatory markers in a.m. COVID-19 antibody was 2.2. Continue supportive care. We will continue ceftriaxone. Continue Depakote, Remeron, Zyprexa and other medications as above. Continue sliding scale recheck labs in a.m. 03/22 Patient continues to have very poor appetite. Remains confused. Discussed with the family. Will try to restart PPN if IV line can be stabilized. Patient pulled the IV access last night. Family is okay with restraining if needed. Continue other medications as above. Continue empiric antibiotics. Continue sliding scale. We will try to change p.o. meds to IV since patient is refusing most of the p.o. meds. 03/21 Continue IV fluids. Palliative care input appreciated. Discussed at length with daughter over the phone. Continue modified diet. Continue antibiotics. Continue current medications as above. A.m. labs 1/3 Chest x-ray reviewed. Bandemia has resolved. Continue empiric antibiotics. Steroids discontinued. Replace electrolytes. Add dextrose due to poor appetite. Monitor inflammatory markers. Consult palliative care. A.m. labs 1/2 Discontinue azithromycin. Start IV ceftriaxone. Patient has significant b andemia. Will discontinue Decadron. Add probiotics. Recheck labs in a.m. Continue sliding scale. Chest x-ray in a.m. Continue other medications as above
[2020-03-24 06:41] LABS: #Eosinphils 0.1 thou/uL (0.0-0.7); #Monocytes 0.7 thou/uL (0.11-0.59); #Neutrophils 13.8 thou/uL (1.40-6.50); %Basophils 0.1 % (0.0-1.0); %Eosinophils 0.4 % (0.0-10.0); %Lymphocytes 6.5 % (21.0-51.0); %Monocytes 4.2 % (0.0-10.0); %Neutrophils 88.8 % (42.0-75.0); Hemoglobin 12.2 g/dL (12.0-16.0); Mean Corpuscular HGB CONC 32.2 g/dL (32.0-36.0); Mean Corpuscular Hemoglobin 29.9 pg (27.0-31.0); Mean Corpuscular Volume 92.9 fL (78.0-98.0); Mean Platelet Volume 7.4 fL (7.4-10.4); Platelet Count 423 thou/uL (130-400); RBC Distribution Width 13.3 % (11.5-14.5); Red Blood Cell (RBC) Count 4.09 mill/uL (4.20-5.40); White Blood Cell (WBC) Count 15.6 thou/uL (4.8-10.8)
[2020-03-24 06:54] LABS: ALT (SGPT) 37 U/L (8-55); AST (SGOT) 30 U/L (5-34); Albumin 3.1 g/dL (3.4-4.8); Alkaline Phosphatase 108 U/L (40-110); Anion Gap 18 mmol/L (10-20); BUN (Urea Nitrogen) 24 mg/dL (9.8-20.1); Bilirubin, Total 0.4 mg/dL (0.2-1.2); CRP (Inflammatory) 11.73 mg/dL (= or < 0.5); Calc. Creatinine Clearance 44 mL/min (70-130); Calcium 8.4 mg/dL (7.8-10.44); Carbon Dioxide 24 mmol/L (23-31); Chloride 105 mmol/L (98-107); Globulin 3.5 g/dL (2.4-3.5); Glucose 139 mg/dL (83-110); Potassium 3.9 mmol/L (3.5-5.1); Protein, Total 6.6 g/dL (6.0-8.3); Sodium 143 mmol/L (136-145)
[2020-03-24] MEDS: Cholecalciferol (Vitamin D3) 400 UNITS TAB PO SCH (08:10)
[2020-03-24] MEDS: Amlodipine 5 MG TAB PO SCH ×3 (08:10→19:34)
[2020-03-24] MEDS: Aspirin 81 mg Enteric Coated Tablet PO SCH (08:10)
[2020-03-24] MEDS: Saccharomyces boulardii 250 MG CAP PO SCH (08:10)
[2020-03-24] MEDS: Ascorbic Acid 500 mg Chewable Tablet PO SCH (08:10)
[2020-03-24] MEDS: Zinc Sulfate 220 MG CAP PO SCH (08:10)
[2020-03-24] MEDS: Enoxaparin Sodium 30 MG/0.3 ML SYRINGE SC SCH ×2 (08:11→20:07)
[2020-03-24] MEDS: Valproate Sodium 500 MG in Sodium Chloride 0.9% 100 ML IVPB SCH ×2 (08:12→20:07)
[2020-03-24] MEDS: D5W-AA 4.25% with LYTES 1,000 ML IV SCH ×2 (11:39→20:06)
[2020-03-24] MEDS: Mirtazapine 15 MG TAB PO SCH (19:34)
[2020-03-24] MEDS: OLANZapine 2.5 MG TAB PO SCH (19:35)
--- NOTE | 2020-03-24 20:19 | PDOC.HOSPP ---
- Subjective Encounter Date: 03/24/20 Encounter Time: 10:30 non-verbal Subjective: Patient seen and examined for altered mentation. Remains confused. Poor appetite. On PPN - Objective Vital Signs & Weight: Vital Signs (12 hours) Temp Pulse BP 03/24/20 19:34 94 98/65 03/24/20 09:00 98.7 F 03/24/20 08:32 94 98/65 Weight Admit Weight 106 lb 1.6 oz Weight 106 lb 1.6 oz Result Diagrams: 03/24/20 05:53 03/24/20 05:53 Additional Labs: Accuchecks 03/24/20 03/23/20 05:15 20:50 POC Glucose 128 H 167 H Radiology Reviewed by me: Yes (Chest x-ray1/3 reviewed) Hospitalist ROS - Review of Systems ROS unobtainable: due to mental status - Medication Medications: Active Medications Generic Name Dose Route Start Last Admin Trade Name Freq PRN Reason Stop Dose Admin Amlodipine Besylate 5 mg 03/13/20 09:00 03/24/20 19:34 Amlodipine 5 Mg Tab PO Not Given BID MANA Ascorbic Acid 1,000 mg 03/12/20 09:00 03/24/20 08:10 Ascorbic Acid 500 Mg Chewable Tablet PO 1,000 mg DAILY MANA Administration Aspirin 81 mg 03/22/20 09:00 03/24/20 08:10 Aspirin 81 Mg Enteric Coated Tablet PO 81 mg DAILY MANA Administration Cholecalciferol 400 units 03/12/20 09:00 03/24/20 08:10 Cholecalciferol (Vitamin D3) 400 Units Tab PO 400 units DAILY MANA Administration Enoxaparin Sodium 30 mg 03/12/20 21:00 03/24/20 20:07 Enoxaparin Sodium 30 Mg/0.3 Ml Syringe SC 30 mg BID MANA Administration Valproic Acid 500 mg/ Sodium 105 mls @ 100 mls/hr 03/22/20 21:00 03/24/20 20:07 Chloride IVPB 105 mls BID MANA Administration Amino Acids/Electrolytes/Dextrose 1,000 mls @ 83.3 mls/hr 03/23/20 14:15 03/24/20 20:06 Clinimix E 4.25/5 IV 1,000 mls INF AMNA Administration Insulin Human Lispro 0 units 03/12/20 03:15 03/16/20 17:34 Humalog 300 Units/3 Ml Vial SC 2 unit .MILD SLIDING SCALE PRN Administration MILD SLIDING SCALE Protocol Mirtazapine 15 mg 03/21/20 21:00 03/24/20 19:34 Mirtazapine 15 Mg Tab PO Not Given HS MANA Olanzapine 2.5 mg 03/24/20 21:00 03/24/20 19:35 Olanzapine 2.5 Mg Tab PO Not Given HS MANA Saccharomyces Boulardii 250 mg 03/20/20 09:00 03/24/20 08:10 Saccharomyces Boulardii 250 Mg Cap PO 250 mg DAILY MANA Administration Sodium Chloride 10 ml 03/12/20 21:00 03/24/20 19:35 Flush - Normal Saline 10 Ml Syringe IVF Not Given Q12HR MANA Zinc Sulfate 220 mg 03/12/20 09:00 03/24/20 08:10 Zinc Sulfate 220 Mg Cap PO 220 mg DAILY MANA Administration - Exam General Appearance: ill appearing Neck: supple, no JVD Heart: RRR, no gallops Respiratory: no wheezes, no ronchi Respiratory - other findings: Diminished air entry at bases Gastrointestinal: soft, non-tender, no guarding, no rigidity Extremities: no cyanosis Neurological - other findings: Neuro/psychcannot assess due to current mentatio n Hosp A/P - Plan DVT proph w/SCDs Toxic metabolic encephalopathy Sepsis due to UTI/COVID 19 infection Hypokalemia Lactic acidosis Acute kidney injury Dementia Diabetes mellitus type II Swallow dysfunction Plan: Patient has midline IV access. Will continue PPN. Case discussed extensively with both daughters. They recommended continue PPN over the weekend. They will decide on feeding tube on Tuesday 03/28. D-dimer improving. Ferritin 1173 from 857 today. Will recheck chest x-ray in a.m. COVID-19 IgG was 2.2. A.m. labs. Palliative care team updated continue other medications as above 03/23 Will replace potassium and magnesium. Continue PPN. WBC count is improving. Recheck inflammatory markers in a.m. COVID-19 antibody was 2.2. Continue supportive care. We will continue ceftriaxone. Continue Depakote, Remeron, Zyprexa and other medications as above. Continue sliding scale recheck labs in a.m. 03/22 Patient continues to have very poor appetite. Remains confused. Discussed with the family. Will try to restart PPN if IV line can be stabilized. Patient pulled the IV access last night. Family is okay with restraining if needed. Continue other medications as above. Continue empiric antibiotics. Continue sliding scale. We will try to change p.o. meds to IV since patient is refusing most of the p.o. meds. 1/ Continue IV fluids. Palliative care input appreciated. Discussed at length with daughter over the phone. Continue modified diet. Continue antibiotics. Continue current medications as above. A.m. labs 1/ Chest x-ray reviewed. Bandemia has resolved. Continue empiric antibiotics. Steroids discontinued. Replace electrolytes. Add dextrose due to poor appetite. Monitor inflammatory markers. Consult palliative care. A.m. labs 1/2 Discontinue azithromycin. Start IV ceftriaxone. Patient has significant bandemia. Will discontinue Decadron. Add probiotics. Recheck labs in a.m. Continue sliding scale. Chest x-ray in a.m. Continue other medications as above
[2020-03-24] MEDS ORDERED: hydrALAZINE 20 MG/ML VIAL SLOW IVP PRN (20:20)
[2020-03-25 06:18] LABS: #Eosinphils 0.1 thou/uL (0.0-0.7); #Lymphocytes 0.9 thou/uL (1.20-3.40); #Monocytes 0.6 thou/uL (0.11-0.59); #Neutrophils 9.3 thou/uL (1.40-6.50); %Basophils 0.2 % (0.0-1.0); %Eosinophils 0.7 % (0.0-10.0); %Lymphocytes 8.1 % (21.0-51.0); %Monocytes 5.9 % (0.0-10.0); %Neutrophils 85.2 % (42.0-75.0); Hemoglobin 11.3 g/dL (12.0-16.0); Mean Corpuscular HGB CONC 30.9 g/dL (32.0-36.0); Mean Corpuscular Hemoglobin 29.4 pg (27.0-31.0); Mean Platelet Volume 7.8 fL (7.4-10.4); Platelet Count 381 thou/uL (130-400); RBC Distribution Width 13.3 % (11.5-14.5); Red Blood Cell (RBC) Count 3.85 mill/uL (4.20-5.40); White Blood Cell (WBC) Count 10.9 thou/uL (4.8-10.8)
[2020-03-25 06:30] LABS: ALT (SGPT) 29 U/L (8-55); AST (SGOT) 26 U/L (5-34); Albumin 2.9 g/dL (3.4-4.8); Alkaline Phosphatase 91 U/L (40-110); Anion Gap 15 mmol/L (10-20); BUN (Urea Nitrogen) 28 mg/dL (9.8-20.1); Bilirubin, Total 0.4 mg/dL (0.2-1.2); Calc. Creatinine Clearance 49 mL/min (70-130); Calcium 8.4 mg/dL (7.8-10.44); Carbon Dioxide 23 mmol/L (23-31); Chloride 106 mmol/L (98-107); Globulin 3.3 g/dL (2.4-3.5); Glucose 145 mg/dL (83-110); Magnesium 2.5 mg/dL (1.6-2.6); Phosphorus 3.8 mg/dL (2.3-4.7); Protein, Total 6.2 g/dL (6.0-8.3); Sodium 140 mmol/L (136-145)
[2020-03-25] MEDS: Enoxaparin Sodium 30 MG/0.3 ML SYRINGE SC SCH ×2 (08:06→20:59)
[2020-03-25] MEDS: Cholecalciferol (Vitamin D3) 400 UNITS TAB PO SCH ×2 (08:07→11:50)
[2020-03-25] MEDS: Zinc Sulfate 220 MG CAP PO SCH ×2 (08:07→11:50)
[2020-03-25] MEDS: Ascorbic Acid 500 mg Chewable Tablet PO SCH ×2 (08:07→11:50)
[2020-03-25] MEDS: Amlodipine 5 MG TAB PO SCH ×3 (08:07→20:58)
[2020-03-25] MEDS: Saccharomyces boulardii 250 MG CAP PO SCH ×2 (08:07→11:50)
[2020-03-25] MEDS: Valproate Sodium 500 MG in Sodium Chloride 0.9% 100 ML IVPB SCH (08:07)
[2020-03-25] MEDS: Aspirin 81 mg Enteric Coated Tablet PO SCH ×2 (08:07→11:50)
--- NOTE | 2020-03-25 08:41 | RAD ---
Portable frontal chest radiograph: 03/25/2020 COMPARISON: 03/20/2020 HISTORY: Short of breath FINDINGS: Heart and mediastinal contours are stable. Nonspecific mild linear density noted in the rig ht lung apex. Interval development of hazy groundglass alveolar opacity in the left upper lobe/left perihilar region. Supine imaging limits assessment for pneumothorax and pleural fluid. IMPRESSION: Interval development of opacity in the left perihilar region/left upper lobe region. Find ings are suspicious for infectious pneumonitis or aspiration.
[2020-03-25] MEDS: Valproate Sodium 250 mg/5 ml UD Cup PO SCH ×2 (09:12→21:00)
--- NOTE | 2020-03-25 14:18 | PDOC.PALCO ---
Palliative Care Consult - Consult Details Requesting Physician: Dr Cardenas Reason for Consult: goals of care, advance directives assistance, family support, complex decision-making Family Members Present: Patient daughter Gely and son-in-law Delon via phone - Pertinent HPI Ms Jackson is a resident at [facility]. Wheelchair/gerichair bound over past two years. 3 hospital visits over past 6 months. She has known dementia, and a recent onset of altered mental status. No fever, chills, recent falls, cough, vomiting or diarrhea. EMS transport to [facility] for further evaluation. Noted to have a UTI and Covid +, was admitted for further care and medical management. Patient has been a resident at the [facility] for several years. Continued slow decline, assistance with ADL, incontinent of Bowel and Bladder. - Pertinent PMH Vascualr Dementia, Anxiety, TIA, DM - Social History Smoking: no tobacco exposure Alcohol Use: none Drug Use History: none Living Situation: [facility] resident - Medications MAR Reviewed: Yes - Allergies Allergies/Adverse Reactions: Allergies Allergy/AdvReac Type Severity Reaction Status Date / Time No Known Drug Allergies Allergy Verified 03/12/20 02:47 - Subjective Sleeping, opens eyes for assessment. One word answer, non sensical. Drifted back to sleep state - ROS Non Response: due to mental status - Objective Vital Signs: Vital Signs - Most Recent Temp Pulse Resp BP Pulse Ox 97.6 F 84 19 121/57 L 94 L 03/25/20 07:15 03/25/20 11:48 03/25/20 07:15 03/25/20 07:15 03/25/20 07:15 Palliative Performance Scale: 20 - Physical Exam Constitutional: cachectic, emaciated, ill appearing HEENT: EOMI, moist MMs, sclera anicteric Respiratory: no rhonchi, no wheezing, diminished lung sound Cardiovascular: no significant murmur, RRR Gastrointestinal: soft, non-tender, incontinent Genitourinary: incontinent Musculoskeletal: diffuse muscle atrophy, muscle wasting Neurology: moves all 4 limbs, no focal deficits Skin: cap refill <2 seconds, no lesions, no rash, fragile Deviation from normal: Poor mentation - Problem List (1) Dysphagia Code(s): R13.10 - DYSPHAGIA, UNSPECIFIED Current Visit: Yes Status: Acute (2) Palliative care encounter Code(s): Z51.5 - ENCOUNTER FOR PALLIATIVE CARE Current Visit: Yes Status: Acute (3) Acute metabolic encephalopathy Code(s): G93.41 - METABOLIC ENCEPHALOPATHY Current Visit: No Status: Acute (4) Altered mental status Code(s): R41.82 - ALTERED MENTAL STATUS, UNSPECIFIED Current Visit: No Status: Acute (5) Alzheimer's dementia Code(s): G30.9 - ALZHEIMER'S DISEASE, UNSPECIFIED; F02.80 - DEMENTIA IN OTH DISEASES CLASSD ELSWHR W/O BEHAVRL DISTURB Current Visit: No Status: Chronic (6) Diabetes mellitus Code(s): E11.9 - TYPE 2 DIABETES MELLITUS WITHOUT COMPLICATIONS Current Visit: No Status: Chronic - Plan/Recommendations Plan: Lengthy conversation with Gely and her Delon. They are understanding of disease progression of Dementia, and impact of Covid. They have not seem Mrs Jackson in over a year secondary to Covid and subsequent isolation. Confirmed aprox a 30 lb weight loss over this time. Discussed understanding of PEG for nutrition secondary to progressing dysphagia, they states that in other situations they may consider different option that PEG placement. But in given pandemic, they desire to continue with aggressive measures. Overall goal is for Mrs Jackson to return to [facility] so that Gely can visit her mother at some point in the near future. Gely does not want her mother to pass without saying good by in person if it can be prevented. Requested that no further conversation in relation to DNAR be had this hospital stay. Requested staff and all who care for and enter the room of Mrs Jackson orient her, even though she is non verbal, with time, place and plan for her. Lisa will relay voice messages that Palliative care will play for Mrs Jackson. In short life review Gely and Delon relayed Mrs Jackson was a kind and loving individual and that her smile was gentle and relayed a deep kindness. Emotional support and Theraputic listening. Will follow up Saturday with phone call. Discussed with Dr Cardenas prior to calling family. [70] minutes spent on this encounter with >50% of the time in counseling and coordination of care. Thank you for this very appropriate consult.
[2020-03-25] MEDS: D5W-AA 4.25% with LYTES 1,000 ML IV SCH (16:41)
--- NOTE | 2020-03-25 19:55 | PDOC.HOSPP ---
- Subjective Encounter Date: 03/25/20 Encounter Time: 14:00 Subjective: Patient seen and examined for encephalopathy/COVID-19 infection. No significant change in mentation. Continues to have poor appetite. On PPN. - Objective Vital Signs & Weight: Vital Signs (12 hours) Pulse 03/25/20 11:48 84 Weight Admit Weight 106 lb 1.6 oz Weight 106 lb 1.6 oz Result Diagrams: 03/25/20 05:57 03/25/20 05:57 Additional Labs: Accuchecks 03/25/20 03/25/20 03/25/20 16:25 11:27 05:18 POC Glucose 104 H 133 H 129 H 03/24/20 03/24/20 03/24/20 19:33 16:01 11:13 POC Glucose 134 H 169 H 138 H Radiology Reviewed by me: Yes (CXR -left upper lobe/perihilar pneumoniaquestionable aspiration) Hospitalist ROS - Review of Systems ROS unobtainable: due to mental status - Medication Medications: Active Medications Generic Name Dose Route Start Last Admin Trade Name Freq PRN Reason Stop Dose Admin Amlodipine Besylate 5 mg 03/13/20 09:00 03/25/20 11:48 Amlodipine 5 Mg Tab PO Not Given BID [facility] Ascorbic Acid 1,000 mg 03/12/20 09:00 03/25/20 11:50 Ascorbic Acid 500 Mg Chewable Tablet PO Not Given DAILY [facility] Aspirin 81 mg 03/22/20 09:00 03/25/20 11:50 Aspirin 81 Mg Enteric Coated Tablet PO Not Given DAILY MANA Cholecalciferol 400 units 03/12/20 09:00 03/25/20 11:50 Cholecalciferol (Vitamin D3) 400 Units Tab PO Not Given DAILY [facility] Enoxaparin Sodium 30 mg 03/12/20 21:00 03/25/20 08:06 Enoxaparin Sodium 30 Mg/0.3 Ml Syringe SC 30 mg BID MANA Administration Amino Acids/Electrolytes/Dextrose 1,000 mls @ 83.3 mls/hr 03/23/20 14:15 03/25/20 16:41 Clinimix E 4.25/5 IV 1,000 mls INF MANA Administration Insulin Human Lispro 0 units 03/12/20 03:15 03/16/20 17:34 Humalog 300 Units/3 Ml Vial SC 2 unit .MILD SLIDING SCALE PRN Administration MILD SLIDING SCALE Protocol Mirtazapine 15 mg 03/21/20 21:00 03/24/20 19:34 Mirtazapine 15 Mg Tab PO Not Given HS MANA Olanzapine 2.5 mg 03/24/20 21:00 03/24/20 19:35 Olanzapine 2.5 Mg Tab PO Not Given HS MANA Saccharomyces Boulardii 250 mg 03/20/20 09:00 03/25/20 11:50 Saccharomyces Boulardii 250 Mg Cap PO Not Given DAILY MANA Sodium Chloride 10 ml 03/12/20 21:00 03/25/20 11:50 Flush - Normal Saline 10 Ml Syringe IVF Not Given Q12HR MANA Valproic Acid 250 mg 03/25/20 09:00 03/25/20 09:12 Valproate Sodium 250 Mg/5 Ml Ud Cup PO Not Given BID MANA Zinc Sulfate 220 mg 03/12/20 09:00 03/25/20 11:50 Zinc Sulfate 220 Mg Cap PO Not Given DAILY MANA - Exam General Appearance: ill appearing Neck: supple, no JVD Heart: RRR, no gallops Respiratory: rales, rhonchi Gastrointestinal: soft, no guarding, no rigidity Extremities: no cyanosis, no clubbing Neurological - other findings: Neuro/Psych - cannot assess due to Hosp A/P - Plan DVT proph w/SCDs Toxic metabolic encephalopathy Sepsis due to UTI/COVID 19 infection Pneumoniaaspiration versus COVID-19 pneumonia Hypokalemia Lactic acidosis Acute kidney injury Dementia Diabetes mellitus type II Swallow dysfunction Plan: Continue PPN. Chest x-ray concerning for pneumonia. Possibilities include COVID-19 pneumonia versus aspiration. Will start on IV Zosyn. Continue supp ortive care. A.m. labs. 03/24 Patient has midline IV access. Will continue PPN. Case discussed extensively with both daughters. They recommended continue PPN over the weekend. They will decide on feeding tube on Tuesday 03/28. D-dimer improving. Ferritin 1173 from 857 today. Will recheck chest x-ray in a.m. COVID-19 IgG was 2.2. A.m. labs. Palliative care team updated continue other medications as above 03/23 Will replace potassium and magnesium. Continue PPN. WBC count is improving. R echeck inflammatory markers in a.m. COVID-19 antibody was 2.2. Continue supportive care. We will continue ceftriaxone. Continue Depakote, Remeron, Zyprexa and other medications as above. Continue sliding scale recheck labs in a.m. 03/22 Patient continues to have very poor appetite. Remains confused. Discussed with the family. Will try to restart PPN if IV line can be stabilized. Patient pul led the IV access last night. Family is okay with restraining if needed. Continue other medications as above. Continue empiric antibiotics. Continue sliding scale. We will try to change p.o. meds to IV since patient is refusing most of the p.o. meds. 03/21 Continue IV fluids. Palliative care input appreciated. Discussed at length with daughter over the phone. Continue modified diet. Continue antibiotics. Continue current medications as above. A.m. labs 03/20 Chest x-ray reviewed. Bandemia has resolved. Continue empiric antibiotics. Steroids discontinued. Replace electrolytes. Add dextrose due to poor appetite. Monitor inflammatory markers. Consult palliative care. A.m. labs 1/2 Discontinue azithromycin. Start IV ceftriaxone. Patient has significant bandemia. Will discontinue Decadron. Add probiotics. Recheck labs in a.m. Continue sliding scale. Chest x-ray in a.m. Continue other medications as above
[2020-03-25] MEDS: OLANZapine 2.5 MG TAB PO SCH (20:58)
[2020-03-25] MEDS: Mirtazapine 15 MG TAB PO SCH (20:58)
[2020-03-25] MEDS: Piperacillin/Tazobactam 3.375 GM in Sodium Chloride 0.9% 100 ML IVPB SCH (20:59)
[2020-03-26] MEDS: Piperacillin/Tazobactam 3.375 GM in Sodium Chloride 0.9% 100 ML IVPB SCH ×3 (03:34→20:26)
[2020-03-26] MEDS: D5W-AA 4.25% with LYTES 1,000 ML IV SCH ×2 (03:34→21:00)
[2020-03-26] MEDS: Enoxaparin Sodium 30 MG/0.3 ML SYRINGE SC SCH ×2 (08:29→21:00)
[2020-03-26] MEDS: Cholecalciferol (Vitamin D3) 400 UNITS TAB PO SCH (08:30)
[2020-03-26] MEDS: Ascorbic Acid 500 mg Chewable Tablet PO SCH (08:30)
[2020-03-26] MEDS: Aspirin 81 mg Enteric Coated Tablet PO SCH (08:30)
[2020-03-26] MEDS: Amlodipine 5 MG TAB PO SCH ×2 (08:30→21:00)
[2020-03-26] MEDS: Zinc Sulfate 220 MG CAP PO SCH (08:30)
[2020-03-26] MEDS: Saccharomyces boulardii 250 MG CAP PO SCH (08:30)
[2020-03-26] MEDS: Valproate Sodium 250 MG in Sodium Chloride 0.9% 100 ML IVPB SCH ×2 (11:18→22:28)
[2020-03-26 11:39] LABS: #Eosinphils 0.1 thou/uL (0.0-0.7); #Lymphocytes 0.8 thou/uL (1.20-3.40); #Monocytes 0.6 thou/uL (0.11-0.59); #Neutrophils 6.2 thou/uL (1.40-6.50); %Basophils 0.3 % (0.0-1.0); %Eosinophils 0.9 % (0.0-10.0); %Monocytes 7.7 % (0.0-10.0); %Neutrophils 81.1 % (42.0-75.0); Hemoglobin 10.7 g/dL (12.0-16.0); Mean Corpuscular HGB CONC 33.2 g/dL (32.0-36.0); Mean Corpuscular Hemoglobin 30.8 pg (27.0-31.0); Mean Corpuscular Volume 92.7 fL (78.0-98.0); Mean Platelet Volume 7.1 fL (7.4-10.4); Platelet Count 467 thou/uL (130-400); RBC Distribution Width 13.2 % (11.5-14.5); Red Blood Cell (RBC) Count 3.46 mill/uL (4.20-5.40); White Blood Cell (WBC) Count 7.6 thou/uL (4.8-10.8)
[2020-03-26 12:00] LABS: ALT (SGPT) 23 U/L (8-55); AST (SGOT) 21 U/L (5-34); Albumin 2.7 g/dL (3.4-4.8); Alkaline Phosphatase 88 U/L (40-110); Anion Gap 14 mmol/L (10-20); BUN (Urea Nitrogen) 24 mg/dL (9.8-20.1); Bilirubin, Total 0.3 mg/dL (0.2-1.2); Calc. Creatinine Clearance 46 mL/min (70-130); Calcium 8.4 mg/dL (7.8-10.44); Carbon Dioxide 28 mmol/L (23-31); Chloride 101 mmol/L (98-107); Globulin 3.3 g/dL (2.4-3.5); Glucose 126 mg/dL (83-110); Magnesium 2.2 mg/dL (1.6-2.6); Phosphorus 3.6 mg/dL (2.3-4.7); Potassium 3.9 mmol/L (3.5-5.1); Sodium 139 mmol/L (136-145)
--- NOTE | 2020-03-26 18:52 | PDOC.HOSPP ---
- Subjective Encounter Date: 03/26/20 Encounter Time: 11:30 Subjective: Patient seen and examined for respiratory failure due to COVID-19. Mentation slowly improving. Ate few bites this morning with breakfast per RN. - Objective Vital Signs & Weight: Vital Signs (12 hours) Temp Pulse Resp BP Pulse Ox 03/26/20 08:30 71 03/26/20 08:00 97.3 F L 71 18 133/73 100 Weight Admit Weight 106 lb 1.6 oz Weight 106 lb 1.6 oz I&O: 03/25/20 03/26/20 03/27/20 06:59 06:59 06:59 Intake Total 1113 Output Total 550 Balance 563 Result Diagrams: 03/26/20 11:11 03/26/20 11:11 Additional Labs: Accuchecks 03/26/20 03/26/20 03/26/20 16:02 12:03 06:35 POC Glucose 104 H 125 H 125 H 03/25/20 20:34 POC Glucose 141 H Abnormal Lab Results - Last 48 hrs 03/25/20 05:57: BUN 28 H, Albumin 2.9 L, Albumin/Globulin Ratio 0.9 L 03/25/20 05:57: WBC 10.9 H, RBC 3.85 L, Hgb 11.3 L, MCHC 30.9 L, Neutrophils % 85.2 H, Lymphocytes % 8.1 L, Neutrophils # 9.3 H, Lymphocytes # 0.9 L, Monocytes # 0.6 H 03/26/20 11:11: RBC 3.46 L, Hgb 10.7 L, Hct 32.1 L, Plt Count 467 H, MPV 7.1 L, Neutrophils % 81.1 H, Lymphocytes % 10.0 L, Lymphocytes # 0.8 L, Monocytes # 0.6 H 03/26/20 11:11: BUN 24 H, Albumin 2.7 L, Albumin/Globulin Ratio 0.8 L Hospitalist ROS - Review of Systems ROS unobtainable: due to mental status - Medication Medications: Active Medications Generic Name Dose Route Start Last Admin Trade Name Freq PRN Reason Stop Dose Admin Amlodipine Besylate 5 mg 03/13/20 09:00 03/26/20 08:30 Amlodipine 5 Mg Tab PO 5 mg BID MANA Administration Ascorbic Acid 1,000 mg 03/12/20 09:00 03/26/20 08:30 Ascorbic Acid 500 Mg Chewable Tablet PO 1,000 mg DAILY MANA Administration Aspirin 81 mg 03/22/20 09:00 03/26/20 08:30 Aspirin 81 Mg Enteric Coated Tablet PO 81 mg DAILY MANA Administration Cholecalciferol 400 units 03/12/20 09:00 03/26/20 08:30 Cholecalciferol (Vitamin D3) 400 Units Tab PO 400 units DAILY MANA Administration Enoxaparin Sodium 30 mg 03/12/20 21:00 03/26/20 08:29 Enoxaparin Sodium 30 Mg/0.3 Ml Syringe SC 30 mg BID MANA Administration Amino Acids/Electrolytes/Dextrose 1,000 mls @ 83.3 mls/hr 03/23/20 14:15 03/26/20 03:34 Clinimix E 4.25/5 IV 1,000 mls INF MANA Administration Piperacillin Sod/Tazobactam 100 mls @ 200 mls/hr 03/25/20 20:00 03/26/20 12:57 Sod 3.375 gm/ Sodium Chloride IVPB 100 mls Q8H MANA Administration Valproic Acid 250 mg/ Sodium 102.5 mls @ 100 mls/hr 03/26/20 09:00 03/26/20 11:18 Chloride IVPB 102.5 mls BID MANA Administration Insulin Human Lispro 0 units 03/12/20 03:15 03/16/20 17:34 Humalog 300 Units/3 Ml Vial SC 2 unit .MILD SLIDING SCALE PRN Administration MILD SLIDING SCALE Protocol Mirtazapine 15 mg 03/21/20 21:00 03/25/20 20:58 Mirtazapine 15 Mg Tab PO Not Given HS MANA Olanzapine 2.5 mg 03/24/20 21:00 03/25/20 20:58 Olanzapine 2.5 Mg Tab PO Not Given HS MANA Saccharomyces Boulardii 250 mg 03/20/20 09:00 03/26/20 08:30 Saccharomyces Boulardii 250 Mg Cap PO 250 mg DAILY MANA Administration Sodium Chloride 10 ml 03/12/20 21:00 03/26/20 08:31 Flush - Normal Saline 10 Ml Syringe IVF 10 ml Q12HR MANA Administration Zinc Sulfate 220 mg 03/12/20 09:00 03/26/20 08:30 Zinc Sulfate 220 Mg Cap PO 220 mg DAILY MANA Administration - Exam General Appearance: ill appearing Neck: supple, no JVD Heart: RRR, no gallops, no rubs Respiratory: rales, rhonchi Gastrointestinal: soft, no guarding, no rigidity Extremities: no cyanosis, no clubbing Hosp A/P - Plan DVT proph w/lovenox, DVT proph w/SCDs Toxic metabolic encephalopathy Sepsis due to UTI/COVID 19 infection Pneumoniaaspiration versus COVID-19 pneumonia Hypokalemia Lactic acidosis Acute kidney injury Dementia Diabetes mellitus type II Swallow dysfunction Plan: Continue supportive care. WBC count improving with antibiotics. We will contin ue IV Zosyn. Electrolytes in normal range. Continue TPN until appetite improves. Continue other medications as above 03/25 Continue PPN. Chest x-ray concerning for pneumonia. Possibilities include COVID-19 pneumonia versus aspiration. Will start on IV Zosyn. Continue supportive care. A.m. labs. 03/24 Patient has midline IV access. Will continue PPN. Case discussed extensively with both daughters. They recommended continue PPN over the weekend. They will decide on feeding tube on Tuesday 03/28. D-dimer improving. Ferritin 1173 from 857 today. Will recheck chest x-ray in a.m. COVID-19 IgG was 2.2. A.m. labs. Palliative care team updated continue other medications as above 03/23 Will replace potassium and magnesium. Continue PPN. WBC count is improving. Recheck inflammatory markers in a.m. COVID-19 antibody was 2.2. Continue supportive care. We will continue ceftriaxone. Continue Depakote, Remeron, Zyprexa and other medications as above. Continue sliding scale recheck labs in a.m. 03/22 Patient continues to have very poor appetite. Remains confused. Discussed with the family. Will try to restart PPN if IV line can be stabilized. Patient pulled the IV access last night. Family is okay with restraining if needed. Continue other medications as above. Continue empiric antibiotics. Continue sliding scale. We will try to change p.o. meds to IV since patient is refusing most of the p.o. meds. 03/21 Continue IV fluids. Palliative care input appreciated. Discussed at length with daughter over the phone. Continue modified diet. Continue antibiotics. Continue current medications as above. A.m. labs 03/20 Chest x-ray reviewed. Bandemia has resolved. Continue empiric antibiotics. Steroids discontinued. Replace electrolytes. Add dextrose due to poor appetite. Monitor inflammatory markers. Consult palliative care. A.m. labs 1/2 Discontinue azithromycin. Start IV ceftriaxone. Patient has significant bandemia. Will discontinue Decadron. Add probiotics. Recheck labs in a.m. Continue sliding scale. Chest x-ray in a.m. Continue other medications as above
[2020-03-26] MEDS: OLANZapine 2.5 MG TAB PO SCH (21:00)
[2020-03-26] MEDS: Mirtazapine 15 MG TAB PO SCH (21:00)
[2020-03-27] MEDS: Piperacillin/Tazobactam 3.375 GM in Sodium Chloride 0.9% 100 ML IVPB SCH ×3 (04:44→21:00)
[2020-03-27] MEDS: Saccharomyces boulardii 250 MG CAP PO SCH (09:46)
[2020-03-27] MEDS: Valproate Sodium 250 MG in Sodium Chloride 0.9% 100 ML IVPB SCH ×2 (09:46→21:37)
[2020-03-27] MEDS: Amlodipine 5 MG TAB PO SCH ×2 (09:46→21:34)
[2020-03-27] MEDS: Cholecalciferol (Vitamin D3) 400 UNITS TAB PO SCH (09:46)
[2020-03-27] MEDS: Enoxaparin Sodium 30 MG/0.3 ML SYRINGE SC SCH ×2 (09:46→21:34)
[2020-03-27] MEDS: Ascorbic Acid 500 mg Chewable Tablet PO SCH (09:46)
[2020-03-27] MEDS: Zinc Sulfate 220 MG CAP PO SCH (09:47)
[2020-03-27] MEDS: Aspirin 81 mg Enteric Coated Tablet PO SCH (09:56)
[2020-03-27] MEDS: D5W-AA 4.25% with LYTES 1,000 ML IV SCH (12:36)
[2020-03-27] MEDS: Mirtazapine 15 MG TAB PO SCH (21:34)
[2020-03-27] MEDS: OLANZapine 2.5 MG TAB PO SCH (21:36)
--- NOTE | 2020-03-27 23:57 | PDOC.HOSPP ---
- Subjective Encounter Date: 03/27/20 Encounter Time: 14:00 Subjective: Patient seen and examined for respiratory failure. Poor appetite per RN. No overnight events. On PPN. - Objective Vital Signs & Weight: Vital Signs (12 hours) Temp Pulse Resp BP Pulse Ox 03/27/20 21:34 116 H 03/27/20 20:15 91 03/27/20 20:00 97.3 F L 116 H 18 146/74 H 100 03/27/20 15:00 98.0 F 75 15 131/63 99 Weight Admit Weight 106 lb 1.6 oz Weight 106 lb 1.6 oz I&O: 03/26/20 03/27/20 03/28/20 06:59 06:59 06:59 Intake Total 1113 1133 Output Total 550 700 Balance 563 433 Result Diagrams: 03/26/20 11:11 03/26/20 11:11 Additional Labs: Accuchecks 03/27/20 03/27/20 03/27/20 21:40 16:12 11:41 POC Glucose 182 H 97 127 H 03/27/20 05:32 POC Glucose 101 H Hospitalist ROS - Review of Systems ROS unobtainable: due to mental status - Medication Medications: Active Medications Generic Name Dose Route Start Last Admin Trade Name Freq PRN Reason Stop Dose Admin Amlodipine Besylate 5 mg 03/13/20 09:00 03/27/20 21:34 Amlodipine 5 Mg Tab PO 5 mg BID MANA Administration Ascorbic Acid 1,000 mg 03/12/20 09:00 03/27/20 09:46 Ascorbic Acid 500 Mg Chewable Tablet PO 1,000 mg DAILY MANA Administration Aspirin 81 mg 03/22/20 09:00 03/27/20 09:56 Aspirin 81 Mg Enteric Coated Tablet PO 81 mg DAILY MANA Administration Cholecalciferol 400 units 03/12/20 09:00 03/27/20 09:46 Cholecalciferol (Vitamin D3) 400 Units Tab PO 400 units DAILY MANA Administration Enoxaparin Sodium 30 mg 03/12/20 21:00 03/27/20 21:34 Enoxaparin Sodium 30 Mg/0.3 Ml Syringe SC 30 mg BID MANA Administration Amino Acids/Electrolytes/Dextrose 1,000 mls @ 83.3 mls/hr 03/23/20 14:15 03/27/20 12:36 Clinimix E 4.25/5 IV 1,000 mls INF MANA Administration Piperacillin Sod/Tazobactam 100 mls @ 200 mls/hr 03/25/20 20:00 03/27/20 21:00 Sod 3.375 gm/ Sodium Chloride IVPB 100 mls Q8H MANA Administration Valproic Acid 250 mg/ Sodium 102.5 mls @ 100 mls/hr 03/26/20 09:00 03/27/20 21:37 Chloride IVPB 102.5 mls BID MANA Administration Insulin Human Lispro 0 units 03/12/20 03:15 03/16/20 17:34 Humalog 300 Units/3 Ml Vial SC 2 unit .MILD SLIDING SCALE PRN Administration MILD SLIDING SCALE Protocol Mirtazapine 15 mg 03/21/20 21:00 03/27/20 21:34 Mirtazapine 15 Mg Tab PO 15 mg HS MANA Administration Olanzapine 2.5 mg 03/24/20 21:00 03/27/20 21:36 Olanzapine 2.5 Mg Tab PO 2.5 mg HS MANA Administration Saccharomyces Boulardii 250 mg 03/20/20 09:00 03/27/20 09:46 Saccharomyces Boulardii 250 Mg Cap PO 250 mg DAILY MANA Administration Sodium Chloride 10 ml 03/12/20 21:00 03/27/20 21:36 Flush - Normal Saline 10 Ml Syringe IVF 10 ml Q12HR MANA Administration Zinc Sulfate 220 mg 03/12/20 09:00 03/27/20 09:47 Zinc Sulfate 220 Mg Cap PO 220 mg DAILY MANA Administration - Exam General Appearance: ill appearing Neck: supple, no JVD Heart: RRR, no rubs, normal peripheral pulses Respiratory: rales, rhonchi Gastrointestinal: soft, non-tender, normal bowel sounds Extremities: no cyanosis Hosp A/P - Plan Toxic metabolic encephalopathy Sepsis due to UTI/COVID 19 infection Pneumoniaaspiration versus COVID-19 pneumonia Hypokalemia Lactic acidosis Acute kidney injury Dementia Diabetes mellitus type II Swallow dysfunction Plan: Continue PPN.Continue supportive care and other medications as above. Await family's decision tomorrow regarding PEG tube. Palliative care input apprec iated. Continue supportive care 03/26 Continue supportive care. WBC count improving with antibiotics. We will continue IV Zosyn. Electrolytes in normal range. Continue PPN until appetite improves. Continue other medications as above. 03/25 Continue PPN. Chest x-ray concerning for pneumonia. Possibilities include COVID-19 pneumonia versus aspiration. Will start on IV Zosyn. Continue suppor tive care. A.m. labs. 03/24 Patient has midline IV access. Will continue PPN. Case discussed extensively with both daughters. They recommended continue PPN over the weekend. They will decide on feeding tube on Tuesday 03/28. D-dimer improving. Ferritin 1173 from 857 today. Will recheck chest x-ray in a.m. COVID-19 IgG was 2.2. A.m. labs. Palliative care team updated continue other medications as above 03/23 Will replace potassium and magnesium. Continue PPN. WBC count is improving. Recheck inflammatory markers in a.m. COVID-19 antibody was 2.2. Continue supportive care. We will continue ceftriaxone. Continue Depakote, Remeron, Zyprexa and other medications as above. Continue sliding scale recheck labs in a.m. 03/22 Patient continues to have very poor appetite. Remains confused. Discussed with the family. Will try to restart PPN if IV line can be stabilized. Patient pulled the IV access last night. Family is okay with restraining if needed. Continue other medications as above. Continue empiric antibiotics. Continue sliding scale. We will try to change p.o. meds to IV since patient is refusing most of the p.o. meds. 03/21 Continue IV fluids. Palliative care input appreciated. Discussed at length with daughter over the phone. Continue modified diet. Continue antibiotics. Continue current medications as above. A.m. labs 03/20 Chest x-ray reviewed. Bandemia has resolved. Continue empiric antibiotics. Steroids discontinued. Replace electrolytes. Add dextrose due to poor appetite. Monitor inflammatory markers. Consult palliative care. A.m. labs 1/ Discontinue azithromycin. Start IV ceftriaxone. Patient has significant bandemia. Will discontinue Decadron. Add probiotics. Recheck labs in a.m. Continue sliding scale. Chest x-ray in a.m. Continue other medications as above
[2020-03-28] MEDS: Piperacillin/Tazobactam 3.375 GM in Sodium Chloride 0.9% 100 ML IVPB SCH ×3 (04:52→20:57)
[2020-03-28] MEDS: Sodium Acetate 2 mEq/ml 20 MEQ, Sodium Chloride 15 MEQ, Potassium ACETATE 10 MEQ, Potas... IV SCH ×2 (05:40→17:04)
[2020-03-28 07:19] LABS: #Lymphocytes 0.8 thou/uL (1.20-3.40); #Monocytes 0.4 thou/uL (0.11-0.59); #Neutrophils 5.8 thou/uL (1.40-6.50); %Basophils 0.1 % (0.0-1.0); %Eosinophils 0.6 % (0.0-10.0); %Lymphocytes 11.5 % (21.0-51.0); %Neutrophils 81.8 % (42.0-75.0); Hemoglobin 11.6 g/dL (12.0-16.0); Mean Corpuscular Hemoglobin 30.3 pg (27.0-31.0); Mean Corpuscular Volume 91.9 fL (78.0-98.0); Platelet Count 501 thou/uL (130-400); RBC Distribution Width 13.1 % (11.5-14.5); Red Blood Cell (RBC) Count 3.82 mill/uL (4.20-5.40); White Blood Cell (WBC) Count 7.1 thou/uL (4.8-10.8)
[2020-03-28 07:38] LABS: ALT (SGPT) 23 U/L (8-55); AST (SGOT) 21 U/L (5-34); Albumin 2.9 g/dL (3.4-4.8); Alkaline Phosphatase 109 U/L (40-110); Anion Gap 15 mmol/L (10-20); BUN (Urea Nitrogen) 17 mg/dL (9.8-20.1); Bilirubin, Total 0.3 mg/dL (0.2-1.2); CRP (Inflammatory) 2.43 mg/dL (= or < 0.5); Calc. Creatinine Clearance 44 mL/min (70-130); Calcium 8.7 mg/dL (7.8-10.44); Carbon Dioxide 25 mmol/L (23-31); Chloride 103 mmol/L (98-107); Globulin 3.4 g/dL (2.4-3.5); Glucose 163 mg/dL (83-110); Phosphorus 3.3 mg/dL (2.3-4.7); Potassium 3.9 mmol/L (3.5-5.1); Protein, Total 6.3 g/dL (6.0-8.3); Sodium 139 mmol/L (136-145)
[2020-03-28] MEDS: Zinc Sulfate 220 MG CAP PO SCH (09:14)
[2020-03-28] MEDS: Saccharomyces boulardii 250 MG CAP PO SCH (09:14)
[2020-03-28] MEDS: Aspirin 81 mg Enteric Coated Tablet PO SCH (09:14)
[2020-03-28] MEDS: Ascorbic Acid 500 mg Chewable Tablet PO SCH (09:14)
[2020-03-28] MEDS: Cholecalciferol (Vitamin D3) 400 UNITS TAB PO SCH (09:14)
[2020-03-28] MEDS: Amlodipine 5 MG TAB PO SCH ×2 (09:15→21:36)
--- NOTE | 2020-03-28 09:18 | PDOC.HOSPP ---
- Subjective Encounter Date: 03/28/20 Encounter Time: 11:45 Subjective: Patient unchanged overnight. Not eating. Not speaking any understandable words. - Objective Vital Signs & Weight: Vital Signs (12 hours) Temp Pulse Resp BP Pulse Ox 03/28/20 09:15 79 03/28/20 08:00 97.3 F L 79 20 149/57 H 98 03/28/20 04:00 97.3 F L 79 20 145/73 H 98 03/28/20 00:00 98 F 71 18 110/73 95 03/27/20 21:34 116 H Weight Admit Weight 106 lb 1.6 oz Weight 106 lb 1.6 oz I&O: 03/27/20 03/28/20 03/29/20 06:59 06:59 06:59 Intake Total 1133 1132 Output Total 700 500 Balance 433 632 Result Diagrams: 03/28/20 07:05 03/28/20 07:05 Additional Labs: Accuchecks 03/28/20 03/27/20 03/27/20 04:50 21:40 16:12 POC Glucose 156 H 182 H 97 03/27/20 11:41 POC Glucose 127 H Hospitalist ROS - Review of Systems ROS unobtainable: due to mental status - Medication Medications: Active Medications Generic Name Dose Route Start Last Admin Trade Name Vasquez PRN Reason Stop Dose Admin Amlodipine Besylate 5 mg 03/13/20 09:00 03/28/20 09:15 Amlodipine 5 Mg Tab PO 5 mg BID MANA Administration Ascorbic Acid 1,000 mg 03/12/20 09:00 03/28/20 09:14 Ascorbic Acid 500 Mg Chewable Tablet PO 1,000 mg DAILY MANA Administration Aspirin 81 mg 03/22/20 09:00 03/28/20 09:14 Aspirin 81 Mg Enteric Coated Tablet PO 81 mg DAILY MANA Administration Cholecalciferol 400 units 03/12/20 09:00 03/28/20 09:14 Cholecalciferol (Vitamin D3) 400 Units Tab PO 400 units DAILY MANA Administration Enoxaparin Sodium 30 mg 03/12/20 21:00 03/27/20 21:34 Enoxaparin Sodium 30 Mg/0.3 Ml Syringe SC 30 mg BID MANA Administration Piperacillin Sod/Tazobactam 100 mls @ 200 mls/hr 03/25/20 20:00 03/28/20 04:52 Sod 3.375 gm/ Sodium Chloride IVPB 100 mls Q8H MANA Administration Valproic Acid 250 mg/ Sodium 102.5 mls @ 100 mls/hr 03/26/20 09:00 03/27/20 21:37 Chloride IVPB 102.5 mls BID MANA Administration Sodium Acetate 20 meq/ Sodium 1,034.7641 mls @ 83.3 mls/hr 03/28/20 05:00 03/28/20 05:40 Chloride 15 meq/ Potassium IV 1,034.7641 mls Acetate 10 meq/ Potassium INF MANA Administration Phosphate 15 mmol/ Calcium Gluconate 4.5 meq/ Magnesium Sulfate 5 meq/ Amino Acids/ Dextrose Insulin Human Lispro 0 units 03/12/20 03:15 03/16/20 17:34 Humalog 300 Units/3 Ml Vial SC 2 unit .MILD SLIDING SCALE PRN Administration MILD SLIDING SCALE Protocol Mirtazapine 15 mg 03/21/20 21:00 03/27/20 21:34 Mirtazapine 15 Mg Tab PO 15 mg HS MANA Administration Olanzapine 2.5 mg 03/24/20 21:00 03/27/20 21:36 Olanzapine 2.5 Mg Tab PO 2.5 mg HS MANA Administration Saccharomyces Boulardii 250 mg 03/20/20 09:00 03/28/20 09:14 Saccharomyces Boulardii 250 Mg Cap PO 250 mg DAILY MANA Administration Sodium Chloride 10 ml 03/12/20 21:00 03/28/20 09:15 Flush - Normal Saline 10 Ml Syringe IVF 10 ml Q12HR MANA Administration Zinc Sulfate 220 mg 03/12/20 09:00 03/28/20 09:14 Zinc Sulfate 220 Mg Cap PO 220 mg DAILY MANA Administration - Exam General - other findings: no distress, arousable and muttering and moaning when stimulated ENT: moist mucosa Heart: RRR, no murmur, no gallops, no rubs Respiratory: CTAB, no wheezes, no rales, no ronchi Gastrointestinal: soft, non-tender, non-distended, normal bowel sounds Extremities: no edema Psychiatric: not oriented, lethargic Hosp A/P - Plan Toxic metabolic encephalopathy Sepsis due to UTI/COVID 19 infection Pneumoniaaspiration versus COVID-19 pneumonia Hypokalemia Lactic acidosis Acute kidney injury Dementia Diabetes mellitus type II Swallow dysfunction Plan: Continue PPN.Continue supportive care and other medications as above. Await family's decision today regarding PEG tube. Palliative care input appreciated. Continue supportive care. I did call Gely (daughter) and left a message, and palliative care has done the same. 03/26 Continue supportive care. WBC count improving with antibiotics. We will continue IV Zosyn. Electrolytes in normal range. Continue PPN until appetite improves. Continue other medications as above. 03/25 Continue PPN. Chest x-ray concerning for pneumonia. Possibilities include COVID-19 pneumonia versus aspiration. Will start on IV Zosyn. Continue suppo rtive care. A.m. labs. 03/24 Patient has midline IV access. Will continue PPN. Case discussed extensively with both daughters. They recommended continue PPN over the weekend. They will decide on feeding tube on Tuesday 03/28. D-dimer improving. Ferritin 1173 from 857 today. Will recheck chest x-ray in a.m. COVID-19 IgG was 2.2. A.m. labs. Palliative care team updated continue other medications as above 03/23 Will replace potassium and magnesium. Continue PPN. WBC count is improving. Recheck inflammatory markers in a.m. COVID-19 antibody was 2.2. Continue supportive care. We will continue ceftriaxone. Continue Depakote, Remeron, Zyprexa and other medications as above. Continue sliding scale recheck labs in a.m. 03/22 Patient continues to have very poor appetite. Remains confused. Discussed with the family. Will try to restart PPN if IV line can be stabilized. Patient pull ed the IV access last night. Family is okay with restraining if needed. Continue other medications as above. Continue empiric antibiotics. Continue sliding scale. We will try to change p.o. meds to IV since patient is refusing most of the p.o. meds. 03/21 Continue IV fluids. Palliative care input appreciated. Discussed at length with daughter over the phone. Continue modified diet. Continue antibiotics. Continue current medications as above. A.m. labs 03/20 Chest x-ray reviewed. Bandemia has resolved. Continue empiric antibiotics. Steroids discontinued. Replace electrolytes. Add dextrose due to poor appetite. Monitor inflammatory markers. Consult palliative care. A.m. labs 03/19 Discontinue azithromycin. Start IV ceftriaxone. Patient has significant bandemia. Will discontinue Decadron. Add probiotics. Recheck labs in a.m. Continue sliding scale. Chest x-ray in a.m. Continue other medications as above
[2020-03-28] MEDS: Enoxaparin Sodium 30 MG/0.3 ML SYRINGE SC SCH ×2 (09:20→21:36)
[2020-03-28] MEDS: Valproate Sodium 250 MG in Sodium Chloride 0.9% 100 ML IVPB SCH (14:52)
[2020-03-28] MEDS: Mirtazapine 15 MG TAB PO SCH (21:36)
[2020-03-28] MEDS: OLANZapine 2.5 MG TAB PO SCH (21:36)
[2020-03-29] MEDS: Piperacillin/Tazobactam 3.375 GM in Sodium Chloride 0.9% 100 ML IVPB SCH ×3 (05:00→20:56)
[2020-03-29] MEDS: Sodium Acetate 2 mEq/ml 20 MEQ, Sodium Chloride 15 MEQ, Potassium ACETATE 10 MEQ, Potas... IV SCH (05:02)
[2020-03-29 06:32] LABS: #Eosinphils 0.1 thou/uL (0.0-0.7); #Lymphocytes 1.4 thou/uL (1.20-3.40); #Monocytes 0.8 thou/uL (0.11-0.59); #Neutrophils 5.3 thou/uL (1.40-6.50); %Basophils 0.4 % (0.0-1.0); %Eosinophils 0.8 % (0.0-10.0); %Lymphocytes 17.9 % (21.0-51.0); Hemoglobin 11.3 g/dL (12.0-16.0); Mean Corpuscular HGB CONC 32.5 g/dL (32.0-36.0); Mean Corpuscular Hemoglobin 29.9 pg (27.0-31.0); Mean Corpuscular Volume 91.8 fL (78.0-98.0); Platelet Count 492 thou/uL (130-400); RBC Distribution Width 12.9 % (11.5-14.5); Red Blood Cell (RBC) Count 3.78 mill/uL (4.20-5.40); White Blood Cell (WBC) Count 7.5 thou/uL (4.8-10.8)
--- NOTE | 2020-03-29 07:49 | PDOC.HOSPP ---
- Subjective Encounter Date: 03/29/20 Encounter Time: 11:30 Subjective: Patient unchanged. Still not eating. Non-verbal. Does groan if stimulated. - Objective Vital Signs & Weight: Vital Signs (12 hours) Temp Pulse Resp BP Pulse Ox 03/29/20 04:00 97.5 F L 75 20 149/69 H 97 03/29/20 00:00 79 20 100 03/28/20 21:36 102 H 03/28/20 20:55 78 20 100 03/28/20 20:00 97.6 F 102 H 20 152/77 H 100 Weight Admit Weight 106 lb 1.6 oz Weight 106 lb 1.6 oz I&O: 03/28/20 03/29/20 03/30/20 06:59 06:59 06:59 Intake Total 1132 1132 Output Total 500 650 Balance 632 482 Result Diagrams: 03/29/20 05:59 03/28/20 07:05 Additional Labs: Accuchecks 03/29/20 03/28/20 03/28/20 05:15 20:49 16:27 POC Glucose 132 H 141 H 166 H 03/28/20 10:39 POC Glucose 139 H Hospitalist ROS - Review of Systems ROS unobtainable: due to mental status - Medication Medications: Active Medications Generic Name Dose Route Start Last Admin Trade Name Vasquez PRN Reason Stop Dose Admin Amlodipine Besylate 5 mg 03/13/20 09:00 03/28/20 21:36 Amlodipine 5 Mg Tab PO 5 mg BID MANA Administration Ascorbic Acid 1,000 mg 03/12/20 09:00 03/28/20 09:14 Ascorbic Acid 500 Mg Chewable Tablet PO 1,000 mg DAILY MANA Administration Aspirin 81 mg 03/22/20 09:00 03/28/20 09:14 Aspirin 81 Mg Enteric Coated Tablet PO 81 mg DAILY MANA Administration Cholecalciferol 400 units 03/12/20 09:00 03/28/20 09:14 Cholecalciferol (Vitamin D3) 400 Units Tab PO 400 units DAILY MANA Administration Enoxaparin Sodium 30 mg 03/12/20 21:00 03/28/20 21:36 Enoxaparin Sodium 30 Mg/0.3 Ml Syringe SC 30 mg BID MANA Administration Piperacillin Sod/Tazobactam 100 mls @ 200 mls/hr 03/25/20 20:00 03/29/20 05:00 Sod 3.375 gm/ Sodium Chloride IVPB 100 mls Q8H MANA Administration Sodium Acetate 20 meq/ Sodium 1,034.7641 mls @ 83.3 mls/hr 03/28/20 05:00 03/29/20 05:02 Chloride 15 meq/ Potassium IV 1,034.7641 mls Acetate 10 meq/ Potassium INF MANA Administration Phosphate 15 mmol/ Calcium Gluconate 4.5 meq/ Magnesium Sulfate 5 meq/ Amino Acids/ Dextrose Insulin Human Lispro 0 units 03/12/20 03:15 03/16/20 17:34 Humalog 300 Units/3 Ml Vial SC 2 unit .MILD SLIDING SCALE PRN Administration MILD SLIDING SCALE Protocol Mirtazapine 15 mg 03/21/20 21:00 03/28/20 21:36 Mirtazapine 15 Mg Tab PO 15 mg HS MANA Administration Olanzapine 2.5 mg 03/24/20 21:00 03/28/20 21:36 Olanzapine 2.5 Mg Tab PO 2.5 mg HS MANA Administration Saccharomyces Boulardii 250 mg 03/20/20 09:00 03/28/20 09:14 Saccharomyces Boulardii 250 Mg Cap PO 250 mg DAILY MANA Administration Sodium Chloride 10 ml 03/12/20 21:00 03/28/20 21:37 Flush - Normal Saline 10 Ml Syringe IVF 10 ml Q12HR MANA Administration Zinc Sulfate 220 mg 03/12/20 09:00 03/28/20 09:14 Zinc Sulfate 220 Mg Cap PO 220 mg DAILY MANA Administration - Exam General Appearance: NAD General - other findings: somnolent ENT: moist mucosa Heart: RRR, no murmur, no gallops, no rubs Respiratory: CTAB, no wheezes, no rales, no ronchi Gastrointestinal: soft, non-tender, non-distended, normal bowel sounds Psychiatric: somnolent Hosp A/P - Plan Toxic metabolic encephalopathy Sepsis due to UTI/COVID 19 infection Pneumoniaaspiration versus COVID-19 pneumonia Hypokalemia Lactic acidosis Acute kidney injury Dementia Diabetes mellitus type II Swallow dysfunction Plan: 03/29 Continue PPN. I was able to talk to daughter Gely on the phone and she stated that they do want a PEG tube placed. Will consult GI. Continue supportive care. 03/28 Continue PPN.Continue supportive care and other medications as above. Await family's decision today regarding PEG tube. Palliative care input appreciated. Continue supportive care. I did call Gely (daughter) and left a message, and palliative care has done the same. 03/26 Continue supportive care. WBC count improving with antibiotics. We will continue IV Zosyn. Electrolytes in normal range. Continue PPN until appetite improves. Continue other medications as above. 03/25 Continue PPN. Chest x-ray concerning for pneumonia. Possibilities include COVID-19 pneumonia versus aspiration. Will start on IV Zosyn. Continue supportive care. A.m. labs. 03/24 Patient has midline IV access. Will continue PPN. Case discussed extensively with both daughters. They recommended continue PPN over the weekend. They will decide on feeding tube on Tuesday 03/28. D-dimer improving. Ferritin 1173 from 857 today. Will recheck chest x-ray in a.m. COVID-19 IgG was 2.2. A.m. labs. Palliative care team updated continue other medications as above 03/23 Will replace potassium and magnesium. Continue PPN. WBC count is improving. Recheck inflammatory markers in a.m. COVID-19 antibody was 2.2. Continue supportive care. We will continue ceftriaxone. Continue Depakote, Remeron, Zyprexa and other medications as above. Continue sliding scale recheck labs in a.m. 03/22 Patient continues to have very poor appetite. Remains confused. Discussed with the family. Will try to restart PPN if IV line can be stabilized. Patient pulled the IV access last night. Family is okay with restraining if needed. Continue other medications as above. Continue empiric antibiotics. Continue sliding scale. We will try to change p.o. meds to IV since patient is refusing most of the p.o. meds. 03/21 Continue IV fluids. Palliative care input appreciated. Discussed at length with daughter over the phone. Continue modified diet. Continue antibiotics. Continue current medications as above. A.m. labs 03/20 Chest x-ray reviewed. Bandemia has resolved. Continue empiric antibiotics. Steroids discontinued. Replace electrolytes. Add dextrose due to poor appetite. Monitor inflammatory markers. Consult palliative care. A.m. labs 03/19 Discontinue azithromycin. Start IV ceftriaxone. Patient has significant bandemia. Will discontinue Decadron. Add probiotics. Recheck labs in a.m. Continue sliding scale. Chest x-ray in a.m. Continue other medications as above
[2020-03-29] MEDS: Cholecalciferol (Vitamin D3) 400 UNITS TAB PO SCH (07:58)
[2020-03-29] MEDS: Zinc Sulfate 220 MG CAP PO SCH (07:58)
[2020-03-29] MEDS: Saccharomyces boulardii 250 MG CAP PO SCH (07:58)
[2020-03-29] MEDS: Enoxaparin Sodium 30 MG/0.3 ML SYRINGE SC SCH ×2 (07:58→20:56)
[2020-03-29] MEDS: Amlodipine 5 MG TAB PO SCH ×2 (07:58→20:58)
[2020-03-29] MEDS: Aspirin 81 mg Enteric Coated Tablet PO SCH (07:58)
[2020-03-29] MEDS: Ascorbic Acid 500 mg Chewable Tablet PO SCH (10:50)
[2020-03-29] MEDS: AA 4.25 %/CALCIUM/LYTES/D5W 2,000 ML IV SCH (14:36)
[2020-03-29] MEDS: Mirtazapine 15 MG TAB PO SCH (20:59)
[2020-03-29] MEDS: OLANZapine 2.5 MG TAB PO SCH (20:59)
--- NOTE | 2020-03-29 21:32 | CON ---
DATE OF CONSULTATION: 03/29/2020 CHIEF COMPLAINT: Inadequate oral intake. HISTORY OF PRESENT ILLNESS: Ms. Jackson is an 85-year-old woman with dementia who is usp bound, who presented with worsening mental status and sepsis and was found to have COVID pneumonia and UTI. She was treated with antibiotics and was originally admitted on 03/11/2020, when she tested positive for COVID. She has been on room air for the last several days. She has had minimal oral intake and has been receiving PPN. GI was consulted due to inadequate oral intake for PEG tube placement. She has had no known nausea, vomiting, or diarrhea or constipation or fever. PAST MEDICAL HISTORY: Dementia, diabetes mellitus type 2. PAST SURGICAL HISTORY: Negative. FAMILY HISTORY: Negative for GI malignancy. SOCIAL HISTORY: No alcohol, tobacco, or drugs. [facility] lives [facility] the [facility]. ALLERGIES: NO KNOWN DRUG ALLERGIES. MEDICATIONS: Currently include: 1. PPN. 2. Amlodipine. 3. Aspirin. 4. Enoxaparin 30 mg two times daily. 5. Olanzapine. 6. Mirtazapine. 7. Zosyn. 8. Zinc. REVIEW OF SYSTEMS: Unobtainable as the patient is not verbally interactive. PHYSICAL EXAMINATION: VITAL SIGNS: Temperature 97.3, pulse 83, and blood pressure 134/84. GENERAL: She is in no acute distress. She is sleeping and does not interact when aroused. HEENT: Her eyes have no scleral icterus. Oropharynx is clear without lesions. LUNGS: Clear to auscultation bilaterally. HEART: Regular rate and rhythm without murmur. ABDOMEN: No obvious scars over the left upper quadrant. Currently, she is somewhat contracted with her knees up towards her chest on her left side, so that her left ribs hanged down pretty far over abdominal area and I do not know that we be able to really assess how well or easily we could place a PEG tube in that area until she is sedated and relaxed. EXTREMITIES: No lower extremity edema. LABORATORY DATA: White blood cell count 7.5, hemoglobin 11.3, platelets 492. INR 1.1. Creatinine 0.68, albumin 2.9. IMPRESSION: 1. Protein-calorie malnutrition. 2. Inadequate oral intake to meet nutritional needs. 3. COVID pneumonia, which is clinically improved. She is on room air without hypoxemia. She was positive here on March 11, but apparently also positive at the nursing facility prior to that, but I do not have those records. 4. Advanced dementia. Palliative care service has already discussed other options with the family and they have made it clear that they do wish to pursue gastrostomy tube placement. I spoke to the patient's daughter, Gely and Gely' . I discussed the risks and benefits of gastrostomy tube in detail including bleeding, infection, perforation, and risk of . I do wish to pursue PEG tube placement. They are aware that Dr. Mendez will be on-call for the GI service tomorrow and will be performing the procedure. 5. Hold Lovenox in the morning. Job ID: [id number]
[2020-03-30] MEDS: Piperacillin/Tazobactam 3.375 GM in Sodium Chloride 0.9% 100 ML IVPB SCH ×3 (04:00→20:31)
[2020-03-30] MEDS ORDERED: Ketamine 50 MG/ML (10ML VIAL) ONE (07:48)
--- NOTE | 2020-03-30 09:27 | OP ---
DATE OF PROCEDURE: 03/30/2020 PROCEDURE: Esophagogastroduodenoscopy (diagnostic). INDICATION FOR PROCEDURE: Oropharyngeal dysphagia, moderate protein-calorie malnutrition/failure to thrive. DESCRIPTION OF PROCEDURE: After the risks and benefits of the procedure were explained to the patient's surrogate (patient's daughter, Gely) including risks of bleeding, infection, perforation, reactions to anesthesia, aspiration, and/or pain, informed consent was obtained. The patient was then taken to the endoscopy suite, where she was placed in the supine position in anticipation of the upper endoscopy. Once the patient was adequately sedated, the standard gastroscope was introduced into the mouth with intubation of the esophagus, stomach, and the proximal small intestines with the findings listed below. The patient tolerated the procedure well with no immediate perioperative complications with the findings listed below. Upon conclusion of the procedure, all equipment was removed from the patient and she was transferred to PACU in satisfactory condition. FINDINGS: Esophagus: Normal-appearing mucosa was seen in the proximal, mid, and distal esophagus. There was no evidence of erosions, ulcerations, mass lesions, or active/recent bleeding. Stomach: Moderately diffuse mucosal erythema in a mosaic-like pattern was seen throughout the entire stomach with multiple erosions seen throughout the stomach as well. However, there was no overt ulcerations or active/recent bleeding seen with these findings. Otherwise, there was no other evidence of polyps, mass lesions, or bleeding. Attempts to place the PEG tube were ultimately unsuccessful due to difficulty of achieving one-to-one compression and transillumination. During the course of the procedure, we were able to achieve transillumination, but the transillumination was centered primarily almost directly underneath her left rib cage. One-to-one compression was able to be achieved further down near the patient's umbilicus, but transillumination was not able to be achieved in that region. Given the difficulties achieving one-to-one compression and transillumination in the same spot that was away from the rib cage to prevent injury to the other underlying structures, the placement of the PEG tube was then aborted. Duodenum: Normal-appearing mucosa was seen in the duodenal bulb. However, scattered small erosions were seen in the second portion of the duodenum and seen extending into the third portion of the duodenum without overt ulceration. There was no evidence of mass lesions or active/recent bleeding. IMPRESSION: 1. Unsuccessful placement of percutaneous gastrostomy tube due to lack of one-to-one compression and transillumination with increased risk of damage to other underlying structures. 2. Moderately severe erosive gastropathy. 3. Scattered erosive changes seen in the duodenum, likely secondary to recent NSAID use. RECOMMENDATIONS: 1. Would continue to trend her H and H and transfuse as necessary to maintain an H and H of 7/21. 2. Continue to monitor clinically for signs of active GI bleeding. 3. Would consult General Surgery Service for evaluation of the patient and possible surgically placed PEG tube if the family desires. 4. Placement of an NG or Dobhoff tube for enteral feedings is appropriate at this time as well. 5. Would confer with family about further attempts of placing a PEG tube placement and a severely demented patient with poor functional status. We will sign off at this time. Please call with any questions. Job ID: [id number]
[2020-03-30] MEDS: Ascorbic Acid 500 mg Chewable Tablet PO SCH (11:46)
[2020-03-30] MEDS: Aspirin 81 mg Enteric Coated Tablet PO SCH (11:46)
[2020-03-30] MEDS: Amlodipine 5 MG TAB PO SCH ×2 (11:46→20:32)
[2020-03-30] MEDS: Cholecalciferol 1,000 UNITS (25 MCG) TAB PO SCH (11:46)
[2020-03-30] MEDS: Saccharomyces boulardii 250 MG CAP PO SCH (11:46)
[2020-03-30] MEDS: Zinc Sulfate 220 MG CAP PO SCH (11:47)
--- NOTE | 2020-03-30 12:37 | PDOC.HOSPP ---
- Subjective Encounter Date: 03/30/20 Encounter Time: 09:30 Subjective: Patient seen and examined bedside today, no overnight event ,today because of anatomy PEG tube was not possible, surgery consulted - Objective Vital Signs & Weight: Vital Signs (12 hours) Temp Pulse Resp BP BP Pulse Ox 03/30/20 10:30 71 18 133/72 94 L 03/30/20 10:00 84 18 149/72 H 95 03/30/20 09:30 74 19 147/71 H 95 03/30/20 08:00 97.6 F 87 20 134/66 96 Weight Admit Weight 106 lb 1.6 oz Weight 106 lb 1.6 oz I&O: 03/29/20 03/30/20 03/31/20 06:59 06:59 06:59 Intake Total 1132 Output Total 650 Balance 482 Result Diagrams: 03/29/20 05:59 03/28/20 07:05 Additional Labs: Accuchecks 03/30/20 03/30/20 03/29/20 11:44 05:26 20:23 POC Glucose 156 H 178 H 180 H 03/29/20 16:17 POC Glucose 168 H Hospitalist ROS - Review of Systems ROS unobtainable: due to mental status - Medication Medications: Active Medications Generic Name Dose Route Start Last Admin Trade Name Freq PRN Reason Stop Dose Admin Amlodipine Besylate 5 mg 03/13/20 09:00 03/30/20 11:46 Amlodipine 5 Mg Tab PO Not Given BID [facility] Ascorbic Acid 1,000 mg 03/12/20 09:00 03/30/20 11:46 Ascorbic Acid 500 Mg Chewable Tablet PO Not Given DAILY [facility] Aspirin 81 mg 03/22/20 09:00 03/30/20 11:46 Aspirin 81 Mg Enteric Coated Tablet PO Not Given DAILY [facility] Cholecalciferol 1,000 units 03/30/20 09:00 03/30/20 11:46 Cholecalciferol 1,000 Units (25 Mcg) Tab PO Not Given DAILY [facility] Enoxaparin Sodium 30 mg 03/12/20 21:00 03/29/20 20:56 Enoxaparin Sodium 30 Mg/0.3 Ml Syringe SC 30 mg BID MANA Administration Piperacillin Sod/Tazobactam 100 mls @ 200 mls/hr 03/25/20 20:00 03/30/20 04:00 Sod 3.375 gm/ Sodium Chloride IVPB 100 mls Q8H MANA Administration Amino Ac/Electrol/Dextrose/Calcium 2,000 mls @ 83.3 mls/hr 03/29/20 08:30 03/07 14:36 Clinimix E 4.25%-5% Solution IV 2,000 mls INF MANA Administration Insulin Human Lispro 0 units 03/12/20 03:15 03/16/20 17:34 Humalog 300 Units/3 Ml Vial SC 2 unit .MILD SLIDING SCALE PRN Administration MILD SLIDING SCALE Protocol Mirtazapine 15 mg 03/21/20 21:00 03/29/20 20:59 Mirtazapine 15 Mg Tab PO 15 mg HS MANA Administration Olanzapine 2.5 mg 03/24/20 21:00 03/29/20 20:59 Olanzapine 2.5 Mg Tab PO 2.5 mg HS MANA Administration Saccharomyces Boulardii 250 mg 03/20/20 09:00 03/30/20 11:46 Saccharomyces Boulardii 250 Mg Cap PO Not Given DAILY MANA Sodium Chloride 10 ml 03/12/20 21:00 03/29/20 20:59 Flush - Normal Saline 10 Ml Syringe IVF 10 ml Q12HR MANA Administration Zinc Sulfate 220 mg 03/12/20 09:00 03/30/20 11:47 Zinc Sulfate 220 Mg Cap PO Not Given DAILY MANA - Exam General Appearance: NAD, ill appearing Eye: PERRL, anicteric sclera ENT: normocephalic atraumatic Neck: supple, symmetric, no JVD Heart: RRR, no murmur, no gallops, no rubs Respiratory: no wheezes, no rales, no ronchi Gastrointestinal: soft, non-tender, non-distended, normal bowel sounds Extremities: no cyanosis, no clubbing Skin: normal turgor Neurological: no focal deficits Musculoskeletal: normal tone, normal strength Psychiatric: not oriented Hosp A/P (1) Dysphagia Code(s): R13.10 - DYSPHAGIA, UNSPECIFIED Status: Acute Qualifiers: Dysphagia type: oropharyngeal phase Qualified Code(s): R13.12 - Dysphagia, oropharyngeal phase (2) Weakness generalized Code(s): R53.1 - WEAKNESS Status: Acute (3) Alzheimer's dementia Code(s): G30.9 - ALZHEIMER'S DISEASE, UNSPECIFIED; F02.80 - DEMENTIA IN OTH DISEASES CLASSD ELSWHR W/O BEHAVRL DISTURB Status: Chronic (4) Anxiety and depression Code(s): F41.9 - ANXIETY DISORDER, UNSPECIFIED; F32.9 - MAJOR DEPRESSIVE DISORDER, SINGLE EPISODE, UNSPECIFIED Status: Chronic (5) Diabetes mellitus Code(s): E11.9 - TYPE 2 DIABETES MELLITUS WITHOUT COMPLICATIONS Status: Chronic Qualifiers: Diabetes mellitus type: type 2 (6) Hypertension Code(s): I10 - ESSENTIAL (PRIMARY) HYPERTENSION Status: Chronic Qualifiers: Hypertension type: essential hypertension Qualified Code(s): I10 - Essential (primary) hypertension - Plan old records reviewed/req, plan discussed w/ family, continue antibiotics, long term care social worker PEG tube placement was not successful General surgery consulted for PEG tube placement Continue PPN Continue Zosyn Medication reviewed and continue provide symptomatic and supportive care I spoke with the patient's family member about goal of care
[2020-03-30] MEDS ORDERED: Lidocaine 1% PF 5 ML VIAL ONE (12:41)
[2020-03-30] MEDS ORDERED: PROPOFOL 200 MG/20 ML VIAL ONE (12:41)
[2020-03-30] MEDS ORDERED: PHENYLEPHRINE-NS 100 MCG/ML 10 ML SYRINGE ONE (12:41)
[2020-03-30] MEDS: AA 4.25 %/CALCIUM/LYTES/D5W 2,000 ML IV SCH (15:30)
[2020-03-30] MEDS: Enoxaparin Sodium 30 MG/0.3 ML SYRINGE SC SCH (20:32)
[2020-03-30] MEDS: Mirtazapine 15 MG TAB PO SCH (20:32)
[2020-03-30] MEDS: OLANZapine 2.5 MG TAB PO SCH (20:32)
[2020-03-31] MEDS: Piperacillin/Tazobactam 3.375 GM in Sodium Chloride 0.9% 100 ML IVPB SCH (04:20)
[2020-03-31] MEDS: Ascorbic Acid 500 mg Chewable Tablet PO SCH (08:16)
[2020-03-31] MEDS: Saccharomyces boulardii 250 MG CAP PO SCH (08:17)
[2020-03-31] MEDS: Amlodipine 5 MG TAB PO SCH ×2 (08:17→21:15)
[2020-03-31] MEDS: Enoxaparin Sodium 30 MG/0.3 ML SYRINGE SC SCH ×3 (08:17→21:16)
[2020-03-31] MEDS: Zinc Sulfate 220 MG CAP PO SCH (08:17)
[2020-03-31] MEDS: Aspirin 81 mg Enteric Coated Tablet PO SCH (08:17)
[2020-03-31] MEDS: Cholecalciferol 1,000 UNITS (25 MCG) TAB PO SCH (08:17)
--- NOTE | 2020-03-31 11:13 | PDOC.HOSPP ---
- Subjective Encounter Date: 03/31/20 Encounter Time: 09:15 Subjective: Patient seen and examined bedside today, patient is baseline demented, she is on room air - Objective Vital Signs & Weight: Vital Signs (12 hours) Temp Pulse Resp BP BP Pulse Ox 03/31/20 08:17 75 128/58 L 03/31/20 07:35 97.6 F 75 14 128/58 L 95 03/31/20 04:00 97.3 F L 83 16 134/69 97 03/31/20 00:35 97.4 F L 97 16 120/83 94 L Weight Admit Weight 106 lb 1.6 oz Weight 106 lb 1.6 oz Result Diagrams: 03/29/20 05:59 03/28/20 07:05 Additional Labs: Accuchecks 03/31/20 03/30/20 03/30/20 06:33 20:17 15:49 POC Glucose 176 H 192 H 125 H 03/30/20 11:44 POC Glucose 156 H Hospitalist ROS - Review of Systems ROS unobtainable: due to mental status - Medication Medications: Active Medications Generic Name Dose Route Start Last Admin Trade Name Freq PRN Reason Stop Dose Admin Amlodipine Besylate 5 mg 03/13/20 09:00 03/31/20 08:17 Amlodipine 5 Mg Tab PO 5 mg BID MANA Administration Ascorbic Acid 1,000 mg 03/12/20 09:00 03/31/20 08:16 Ascorbic Acid 500 Mg Chewable Tablet PO 1,000 mg DAILY MANA Administration Aspirin 81 mg 03/22/20 09:00 03/31/20 08:17 Aspirin 81 Mg Enteric Coated Tablet PO 81 mg DAILY MANA Administration Cholecalciferol 1,000 units 03/30/20 09:00 03/31/20 08:17 Cholecalciferol 1,000 Units (25 Mcg) Tab PO 1,000 units DAILY MANA Administration Enoxaparin Sodium 30 mg 03/12/20 21:00 03/31/20 09:25 Enoxaparin Sodium 30 Mg/0.3 Ml Syringe SC Not Given BID MANA Piperacillin Sod/Tazobactam 100 mls @ 200 mls/hr 03/25/20 20:00 03/31/20 04:20 Sod 3.375 gm/ Sodium Chloride IVPB 100 mls Q8H MANA Administration Amino Ac/Electrol/Dextrose/Calcium 2,000 mls @ 83.3 mls/hr 03/29/20 08:30 03/30/20 15:30 Clinimix E 4.25%-5% Solution IV 2,000 mls INF MANA Administration Insulin Human Lispro 0 units 03/12/20 03:15 03/16/20 17:34 Humalog 300 Units/3 Ml Vial SC 2 unit .MILD SLIDING SCALE PRN Administration MILD SLIDING SCALE Protocol Mirtazapine 15 mg 03/21/20 21:00 03/30/20 20:32 Mirtazapine 15 Mg Tab PO 15 mg HS MANA Administration Olanzapine 2.5 mg 03/24/20 21:00 03/30/20 20:32 Olanzapine 2.5 Mg Tab PO 2.5 mg HS MANA Administration Saccharomyces Boulardii 250 mg 03/20/20 09:00 03/31/20 08:17 Saccharomyces Boulardii 250 Mg Cap PO 250 mg DAILY MANA Administration Sodium Chloride 10 ml 03/12/20 21:00 03/31/20 08:18 Flush - Normal Saline 10 Ml Syringe IVF 10 ml Q12HR MANA Administration Zinc Sulfate 220 mg 03/12/20 09:00 03/31/20 08:17 Zinc Sulfate 220 Mg Cap PO 220 mg DAILY MANA Administration - Exam General Appearance: NAD Eye: PERRL, anicteric sclera ENT: normocephalic atraumatic, dry oral mucosa Neck: supple, symmetric, no JVD Heart: RRR, no murmur, no gallops, no rubs Respiratory: no wheezes, no rales, no ronchi Gastrointestinal: soft, non-tender, non-distended, normal bowel sounds Extremities: no clubbing, no edema Skin: normal turgor, no lesions Musculoskeletal: normal tone, normal strength, generalized weakness, diffuse m uscle atrophy Psychiatric: normal affect, normal behavior Hosp A/P (1) Dysphagia Code(s): R13.10 - DYSPHAGIA, UNSPECIFIED Status: Acute Qualifiers: Dysphagia type: oropharyngeal phase Qualified Code(s): R13.12 - Dysphagia, oropharyngeal phase (2) Weakness generalized Code(s): R53.1 - WEAKNESS Status: Acute (3) Alzheimer's dementia Code(s): G30.9 - ALZHEIMER'S DISEASE, UNSPECIFIED; F02.80 - DEMENTIA IN OTH DISEASES CLASSD ELSWHR W/O BEHAVRL DISTURB Status: Chronic (4) Anxiety and depression Code(s): F41.9 - ANXIETY DISORDER, UNSPECIFIED; F32.9 - MAJOR DEPRESSIVE DISORDER, SINGLE EPISODE, UNSPECIFIED Status: Chronic (5) Diabetes mellitus Code(s): E11.9 - TYPE 2 DIABETES MELLITUS WITHOUT COMPLICATIONS Status: Chronic Qualifiers: Diabetes mellitus type: type 2 (6) Hypertension Code(s): I10 - ESSENTIAL (PRIMARY) HYPERTENSION Status: Chronic Qualifiers: Hypertension type: essential hypertension Qualified Code(s): I10 - Essential (primary) hypertension - Plan old records reviewed/req, social welfare administrator General surgery has been consulted for evaluation Meanwhile continue PPN Medication reviewed and continue provide symptomatic and supportive care I spoke with the patient's family member about goal of care Discontinue Zosyn
[2020-03-31] MEDS: Mirtazapine 15 MG TAB PO SCH (21:15)
[2020-03-31] MEDS: OLANZapine 2.5 MG TAB PO SCH (21:16)
--- NOTE | 2020-04-01 00:10 | CON ---
DATE OF CONSULTATION: HISTORY OF PRESENT ILLNESS: An 85-year-old black female, resident of [facility]. The patient is demented, end-stage, noncommunicative, nonambulatory. She is a full code. Dr. Mendez attempted PEG tube placement yesterday but was unsuccessful. I was consulted. The patient was admitted on 05/13/2019 to hospitalist service for altered mental status at baseline. The patient was felt to be sometimes oriented to self, was not able to give any history. Had normal bowel sounds on admission. CT of brain was unremarkable. Chest x-ray was unremarkable. She is admitted for further evaluation. She is full code. It was stated at that time that she is oriented to person, occasionally responded to name. She has a past history of UTIs, encephalopathy, diabetes. She was found to be COVID positive on 03/11/2020. She was admitted and followed, remained a full code. Palliative care team has seen her regarding her poor prognosis. They signed off on 03/29/2020. Family had consented to restraints in the past. Dr. Cruz saw her on 03/29/2020. PAST MEDICAL HISTORY: Dementia, diabetes mellitus type 2, COVID illness. PAST SURGICAL HISTORY: Negative. The patient is at [facility]. MEDICATIONS: 1. PPN. 2. Amlodipine. 3. Aspirin. 4. Lovenox. 5. Zosyn. 6. Zinc. PHYSICAL EXAMINATION: GENERAL: The patient is in a position, not communicative. I cannot wake her. She will not talk at all. VITAL SIGNS: 97.5, 80, 128/58. LUNGS: Clear with rhonchi at base. CARDIAC: Regular rate and rhythm. ABDOMEN: Soft. EXTREMITIES: Contractures. Does not follow commands. LABORATORY DATA: White count 7, hemoglobin 11.3. Basic metabolic profile is normal, last check 03/28/2020. ASSESSMENT/PLAN: Advanced dementia along with COVID illness, diabetes, multiple medical problems, I have spent more than an hour and a half at different times during the day on the phone with the patient's two daughters on two separate group calls, conference calls with the family, and another conference call. I have discussed with them extensively regarding her poor prognosis. I have discussed with them risks of placing a PEG tube, and with the patient's uncooperative state, removing IVs, and combative at times, she is at great risk for dislodging PEG tube resulting in peritonitis and necessitating future discussions regarding practicality of laparotomies. They have talked about nasal feeding tubes. Discussed with them practicality of that, considering her tendency to pull at things and remove things. Family has asked about constant restraints, and I have told them that would be unreasonable and even with restraints there is no guarantee that she would not dislodge the PEG tube. After much discussion and consideration among the family, they have decided against PEG tube. At this time, I will not place a PEG tube. I then talked to them about DNR status. They wish to discuss this further. They are interested in hospice care. I think the patient should be DNR on hospice care at [facility]. I have told the family that if they change their mind and want the PEG tube, I would place it, but I am not in favor of doing that. They are at this time declining PEG tube, and we will discuss with palliative team and medical team later DNR status. Please call if needed. I will see her as needed. Job ID: [id number]
[2020-04-01] MEDS: Cholecalciferol 1,000 UNITS (25 MCG) TAB PO SCH (08:32)
[2020-04-01] MEDS: Saccharomyces boulardii 250 MG CAP PO SCH (08:32)
[2020-04-01] MEDS: Amlodipine 5 MG TAB PO SCH ×2 (08:32→20:12)
[2020-04-01] MEDS: Aspirin 81 mg Enteric Coated Tablet PO SCH (08:32)
[2020-04-01] MEDS: Enoxaparin Sodium 30 MG/0.3 ML SYRINGE SC SCH ×2 (08:32→20:11)
[2020-04-01] MEDS: Zinc Sulfate 220 MG CAP PO SCH (08:32)
[2020-04-01] MEDS: Ascorbic Acid 500 mg Chewable Tablet PO SCH (08:32)
--- NOTE | 2020-04-01 11:15 | PDOC.HOSPP ---
- Subjective Encounter Date: 04/01/20 Encounter Time: 09:30 Subjective: Patient seen and examined. No overnight events - Objective Vital Signs & Weight: Vital Signs (12 hours) Temp Pulse Resp BP BP Pulse Ox 04/01/20 08:32 79 133/64 04/01/20 07:51 97.3 F L 79 13 133/64 87 L Weight Admit Weight 106 lb 1.6 oz Weight 106 lb 1.6 oz I&O: 03/31/20 04/01/20 04/02/20 06:59 06:59 06:59 Output Total 600 Balance -600 Result Diagrams: 03/29/20 05:59 03/28/20 07:05 Additional Labs: Accuchecks 04/01/20 03/31/20 03/31/20 04:54 19:56 15:55 POC Glucose 139 H 153 H 150 H 03/31/20 12:33 POC Glucose 134 H Hospitalist ROS - Review of Systems ROS unobtainable: due to mental status - Medication Medications: Active Medications Generic Name Dose Route Start Last Admin Trade Name Vasquez PRN Reason Stop Dose Admin Amlodipine Besylate 5 mg 03/13/20 09:00 04/01/20 08:32 Amlodipine 5 Mg Tab PO 5 mg BID MANA Administration Ascorbic Acid 1,000 mg 03/12/20 09:00 04/01/20 08:32 Ascorbic Acid 500 Mg Chewable Tablet PO 1,000 mg DAILY MANA Administration Aspirin 81 mg 03/22/20 09:00 04/01/20 08:32 Aspirin 81 Mg Enteric Coated Tablet PO 81 mg DAILY MANA Administration Cholecalciferol 1,000 units 03/30/20 09:00 04/01/20 08:32 Cholecalciferol 1,000 Units (25 Mcg) Tab PO 1,000 units DAILY MANA Administration Enoxaparin Sodium 30 mg 03/12/20 21:00 04/01/20 08:32 Enoxaparin Sodium 30 Mg/0.3 Ml Syringe SC 30 mg BID MANA Administration Amino Ac/Electrol/Dextrose/Calcium 2,000 mls @ 83.3 mls/hr 03/29/20 08:30 15:30 Clinimix E 4.25%-5% Solution IV 2,000 mls INF MANA Administration Insulin Human Lispro 0 units 03/12/20 03:15 03/16/20 17:34 Humalog 300 Units/3 Ml Vial SC 2 unit .MILD SLIDING SCALE PRN Administration MILD SLIDING SCALE Protocol Mirtazapine 15 mg 03/21/20 21:00 03/31/20 21:15 Mirtazapine 15 Mg Tab PO 15 mg HS MANA Administration Olanzapine 2.5 mg 03/24/20 21:00 03/31/20 21:16 Olanzapine 2.5 Mg Tab PO 2.5 mg HS MANA Administration Saccharomyces Boulardii 250 mg 03/20/20 09:00 04/01/20 08:32 Saccharomyces Boulardii 250 Mg Cap PO 250 mg DAILY MANA Administration Sodium Chloride 10 ml 03/12/20 21:00 04/01/20 08:33 Flush - Normal Saline 10 Ml Syringe IVF 10 ml Q12HR MANA Administration Zinc Sulfate 220 mg 03/12/20 09:00 04/01/20 08:32 Zinc Sulfate 220 Mg Cap PO 220 mg DAILY MANA Administration - Exam General Appearance: NAD, awake alert Eye: PERRL, anicteric sclera ENT: normocephalic atraumatic, no oropharyngeal lesions Neck: supple, symmetric, no JVD Heart: RRR, no murmur, no gallops, no rubs Respiratory: no wheezes, no rales, no ronchi Gastrointestinal: soft, non-tender, non-distended, normal bowel sounds Extremities: no cyanosis, no clubbing, no edema Skin: normal turgor, no lesions Neurological: no focal deficits Musculoskeletal: normal tone, normal strength Hosp A/P (1) Dysphagia Code(s): R13.10 - DYSPHAGIA, UNSPECIFIED Status: Acute Qualifiers: Dysphagia type: oropharyngeal phase Qualified Code(s): R13.12 - Dysphagia, oropharyngeal phase (2) Weakness generalized Code(s): R53.1 - WEAKNESS Status: Acute (3) Alzheimer's dementia Code(s): G30.9 - ALZHEIMER'S DISEASE, UNSPECIFIED; F02.80 - DEMENTIA IN OTH DISEASES CLASSD ELSWHR W/O BEHAVRL DISTURB Status: Chronic (4) Anxiety and depression Code(s): F41.9 - ANXIETY DISORDER, UNSPECIFIED; F32.9 - MAJOR DEPRESSIVE DISORDER, SINGLE EPISODE, UNSPECIFIED Status: Chronic (5) Diabetes mellitus Code(s): E11.9 - TYPE 2 DIABETES MELLITUS WITHOUT COMPLICATIONS Status: Chronic Qualifiers: Diabetes mellitus type: type 2 (6) Hypertension Code(s): I10 - ESSENTIAL (PRIMARY) HYPERTENSION Status: Chronic Qualifiers: Hypertension type: essential hypertension Qualified Code(s): I10 - Essential (primary) hypertension - Plan old records reviewed/req, plan discussed w/ family, continue antibiotics, social work job titles Patient's family has decided about not to go for PEG tube, Palliative care following, if patient's family member agreed with hospice then will consider discharge back to [facility]
[2020-04-01] MEDS: OLANZapine 2.5 MG TAB PO SCH (20:11)
[2020-04-01] MEDS: Mirtazapine 15 MG TAB PO SCH (20:12)
[2020-04-01] MEDS: AA 4.25 %/CALCIUM/LYTES/D5W 2,000 ML IV SCH (20:16)
[2020-04-02] MEDS: Aspirin 81 mg Enteric Coated Tablet PO SCH (08:09)
[2020-04-02] MEDS: Saccharomyces boulardii 250 MG CAP PO SCH (08:09)
[2020-04-02] MEDS: Cholecalciferol 1,000 UNITS (25 MCG) TAB PO SCH (08:09)
[2020-04-02] MEDS: Enoxaparin Sodium 30 MG/0.3 ML SYRINGE SC SCH ×2 (08:09→21:05)
[2020-04-02] MEDS: Ascorbic Acid 500 mg Chewable Tablet PO SCH (08:09)
[2020-04-02] MEDS: Zinc Sulfate 220 MG CAP PO SCH (08:09)
[2020-04-02] MEDS: Amlodipine 5 MG TAB PO SCH ×2 (08:09→21:05)
--- NOTE | 2020-04-02 10:37 | PDOC.HOSPP ---
- Subjective Encounter Date: 04/02/20 Encounter Time: 09:45 Subjective: Patient seen and examined. No overnight events - Objective Vital Signs & Weight: Vital Signs (12 hours) Temp Pulse Resp BP Pulse Ox 04/02/20 08:09 102 H 04/02/20 08:00 96 04/02/20 07:30 97.0 F L 102 H 18 120/73 96 Weight Admit Weight 106 lb 1.6 oz Weight 106 lb 1.6 oz I&O: 04/01/20 04/02/20 04/03/20 06:59 06:59 06:59 Intake Total 996 120 Output Total 600 Balance -600 996 120 Result Diagrams: 03/29/20 05:59 03/28/20 07:05 Additional Labs: Accuchecks 04/02/20 04/01/20 04/01/20 05:12 20:15 11:59 POC Glucose 142 H 120 H 144 H Hospitalist ROS - Review of Systems ROS unobtainable: due to mental status - Medication Medications: Active Medications Generic Name Dose Route Start Last Admin Trade Name Vasquez PRN Reason Stop Dose Admin Amlodipine Besylate 5 mg 03/13/20 09:00 04/02/20 08:09 Amlodipine 5 Mg Tab PO 5 mg BID MANA Administration Ascorbic Acid 1,000 mg 03/12/20 09:00 04/02/20 08:09 Ascorbic Acid 500 Mg Chewable Tablet PO 1,000 mg DAILY MANA Administration Aspirin 81 mg 03/22/20 09:00 04/02/20 08:09 Aspirin 81 Mg Enteric Coated Tablet PO 81 mg DAILY MANA Administration Cholecalciferol 1,000 units 03/30/20 09:00 04/02/20 08:09 Cholecalciferol 1,000 Units (25 Mcg) Tab PO 1,000 units DAILY MANA Administration Enoxaparin Sodium 30 mg 03/12/20 21:00 04/02/20 08:09 Enoxaparin Sodium 30 Mg/0.3 Ml Syringe SC 30 mg BID MANA Administration Insulin Human Lispro 0 units 03/12/20 03:15 03/16/20 17:34 Humalog 300 Units/3 Ml Vial SC 2 unit .MILD SLIDING SCALE PRN Administration MILD SLIDING SCALE Protocol Mirtazapine 15 mg 03/21/20 21:00 04/01/20 20:12 Mirtazapine 15 Mg Tab PO 15 mg HS MANA Administration Olanzapine 2.5 mg 03/24/20 21:00 04/01/20 20:11 Olanzapine 2.5 Mg Tab PO 2.5 mg HS MANA Administration Saccharomyces Boulardii 250 mg 03/20/20 09:00 04/02/20 08:09 Saccharomyces Boulardii 250 Mg Cap PO 250 mg DAILY MANA Administration Sodium Chloride 10 ml 03/12/20 21:00 04/02/20 08:10 Flush - Normal Saline 10 Ml Syringe IVF 10 ml Q12HR MANA Administration Zinc Sulfate 220 mg 03/12/20 09:00 04/02/20 08:09 Zinc Sulfate 220 Mg Cap PO 220 mg DAILY MANA Administration - Exam General Appearance: ill appearing Eye: PERRL, anicteric sclera ENT: normocephalic atraumatic, no oropharyngeal lesions, dry oral mucosa Neck: supple, symmetric, no JVD Heart: RRR, no murmur, no gallops, no rubs Respiratory: no wheezes, no rales, no ronchi Gastrointestinal: soft, non-tender, non-distended, normal bowel sounds Extremities: no clubbing, no edema Skin: normal turgor Psychiatric: not oriented Hosp A/P (1) Dysphagia Code(s): R13.10 - DYSPHAGIA, UNSPECIFIED Status: Acute Qualifiers: Dysphagia type: oropharyngeal phase Qualified Code(s): R13.12 - Dysphagia, oropharyngeal phase (2) Weakness generalized Code(s): R53.1 - WEAKNESS Status: Acute (3) Alzheimer's dementia Code(s): G30.9 - ALZHEIMER'S DISEASE, UNSPECIFIED; F02.80 - DEMENTIA IN OTH DISEASES CLASSD ELSWHR W/O BEHAVRL DISTURB Status: Chronic (4) Anxiety and depression Code(s): F41.9 - ANXIETY DISORDER, UNSPECIFIED; F32.9 - MAJOR DEPRESSIVE DISORDER, SINGLE EPISODE, UNSPECIFIED Status: Chronic (5) Diabetes mellitus Code(s): E11.9 - TYPE 2 DIABETES MELLITUS WITHOUT COMPLICATIONS Status: Chronic Qualifiers: Diabetes mellitus type: type 2 (6) Hypertension Code(s): I10 - ESSENTIAL (PRIMARY) HYPERTENSION Status: Chronic Qualifiers: Hypertension type: essential hypertension Qualified Code(s): I10 - Essential (primary) hypertension - Plan old records reviewed/req, social media director, DVT proph w/lovenox Patient has decided that they do not want PEG tube placement They have not decided about CODE STATUS They [facility], arrangement is pending Meanwhile we will continue PPN while in hospital and continue current medication for supportive care
[2020-04-02] MEDS: Sodium Acetate 2 mEq/ml 20 MEQ, Sodium Chloride 15 MEQ, Potassium ACETATE 10 MEQ, Potas... IV SCH ×2 (11:48→22:41)
[2020-04-02] MEDS: Mirtazapine 15 MG TAB PO SCH (21:05)
[2020-04-02] MEDS: OLANZapine 2.5 MG TAB PO SCH (21:05)
[2020-04-03] MEDS: Aspirin 81 mg Enteric Coated Tablet PO SCH (08:26)
[2020-04-03] MEDS: Saccharomyces boulardii 250 MG CAP PO SCH (08:26)
[2020-04-03] MEDS: Cholecalciferol 1,000 UNITS (25 MCG) TAB PO SCH (08:26)
[2020-04-03] MEDS: Zinc Sulfate 220 MG CAP PO SCH (08:26)
[2020-04-03] MEDS: Enoxaparin Sodium 30 MG/0.3 ML SYRINGE SC SCH (08:26)
[2020-04-03] MEDS: Amlodipine 5 MG TAB PO SCH ×2 (08:26→20:14)
[2020-04-03] MEDS: Ascorbic Acid 500 mg Chewable Tablet PO SCH (08:31)
[2020-04-03] MEDS: Sodium Acetate 2 mEq/ml 20 MEQ, Sodium Chloride 15 MEQ, Potassium ACETATE 10 MEQ, Potas... IV SCH ×2 (10:55→20:15)
--- NOTE | 2020-04-03 11:19 | PDOC.HOSPP ---
- Subjective Encounter Date: 04/03/20 Encounter Time: 10:00 Subjective: Patient seen and examined. No overnight events - Objective Vital Signs & Weight: Vital Signs (12 hours) Temp Pulse Resp BP Pulse Ox 04/03/20 08:26 74 04/03/20 08:00 99 04/03/20 07:00 97.5 F L 74 18 115/54 L 95 Weight Admit Weight 106 lb 1.6 oz Weight 106 lb 1.6 oz I&O: 04/02/20 04/03/20 04/04/20 06:59 06:59 06:59 Intake Total 996 1128 Output Total 680 Balance 996 448 Result Diagrams: 03/29/20 05:59 03/28/20 07:05 Additional Labs: Accuchecks 04/03/20 04/02/20 04/02/20 04:47 19:46 11:17 POC Glucose 148 H 185 H 156 H Hospitalist ROS - Review of Systems ROS unobtainable: due to mental status - Medication Medications: Active Medications Generic Name Dose Route Start Last Admin Trade Name Vasquez PRN Reason Stop Dose Admin Amlodipine Besylate 5 mg 03/13/20 09:00 04/03/20 08:26 Amlodipine 5 Mg Tab PO 5 mg BID MANA Administration Ascorbic Acid 1,000 mg 03/12/20 09:00 04/03/20 08:31 Ascorbic Acid 500 Mg Chewable Tablet PO 1,000 mg DAILY MANA Administration Aspirin 81 mg 03/22/20 09:00 04/03/20 08:26 Aspirin 81 Mg Enteric Coated Tablet PO 81 mg DAILY MANA Administration Cholecalciferol 1,000 units 03/30/20 09:00 04/03/20 08:26 Cholecalciferol 1,000 Units (25 Mcg) Tab PO 1,000 units DAILY MANA Administration Enoxaparin Sodium 30 mg 03/12/20 21:00 04/03/20 08:26 Enoxaparin Sodium 30 Mg/0.3 Ml Syringe SC 30 mg BID MANA Administration Sodium Acetate 20 meq/ Sodium 1,034.7641 mls @ 86.23 mls/hr 04/02/20 09:00 04/03/20 10:55 Chloride 15 meq/ Potassium IV 1,034.7641 mls Acetate 10 meq/ Potassium 0900,2100 MANA Administration Phosphate 15 mmol/ Calcium Gluconate 4.5 meq/ Magnesium Sulfate 5 meq/ Amino Acids/ Dextrose Insulin Human Lispro 0 units 03/12/20 03:15 03/16/20 17:34 Humalog 300 Units/3 Ml Vial SC 2 unit .MILD SLIDING SCALE PRN Administration MILD SLIDING SCALE Protocol Mirtazapine 15 mg 03/21/20 21:00 04/02/20 21:05 Mirtazapine 15 Mg Tab PO 15 mg HS MANA Administration Olanzapine 2.5 mg 03/24/20 21:00 04/02/20 21:05 Olanzapine 2.5 Mg Tab PO 2.5 mg HS MANA Administration Saccharomyces Boulardii 250 mg 03/20/20 09:00 04/03/20 08:26 Saccharomyces Boulardii 250 Mg Cap PO 250 mg DAILY MANA Administration Sodium Chloride 10 ml 03/12/20 21:00 04/03/20 08:26 Flush - Normal Saline 10 Ml Syringe IVF 10 ml Q12HR MANA Administration Zinc Sulfate 220 mg 03/12/20 09:00 04/03/20 08:26 Zinc Sulfate 220 Mg Cap PO 220 mg DAILY MANA Administration - Exam General Appearance: NAD, ill appearing Eye: PERRL, anicteric sclera ENT: dry oral mucosa Neck: supple, symmetric, no JVD, no thyromegaly Heart: RRR, no murmur, no gallops, no rubs Respiratory: no wheezes, no rales, no ronchi Gastrointestinal: soft, non-tender, non-distended, normal bowel sounds Extremities: no clubbing, no edema Skin: normal turgor, no lesions Neurological: no focal deficits Musculoskeletal: normal tone, normal strength Psychiatric: not oriented Hosp A/P (1) Dysphagia Code(s): R13.10 - DYSPHAGIA, UNSPECIFIED Status: Acute Qualifiers: Dysphagia type: oropharyngeal phase Qualified Code(s): R13.12 - Dysphagia, oropharyngeal phase (2) Weakness generalized Code(s): R53.1 - WEAKNESS Status: Acute (3) Alzheimer's dementia Code(s): G30.9 - ALZHEIMER'S DISEASE, UNSPECIFIED; F02.80 - DEMENTIA IN OTH DISEASES CLASSD ELSWHR W/O BEHAVRL DISTURB Status: Chronic (4) Anxiety and depression Code(s): F41.9 - ANXIETY DISORDER, UNSPECIFIED; F32.9 - MAJOR DEPRESSIVE DISORDER, SINGLE EPISODE, UNSPECIFIED Status: Chronic (5) Diabetes mellitus Code(s): E11.9 - TYPE 2 DIABETES MELLITUS WITHOUT COMPLICATIONS Status: Chronic Qualifiers: Diabetes mellitus type: type 2 (6) Hypertension Code(s): I10 - ESSENTIAL (PRIMARY) HYPERTENSION Status: Chronic Qualifiers: Hypertension type: essential hypertension Qualified Code(s): I10 - Donis ac (primary) hypertension - Plan old records reviewed/req, medical social worker, DVT proph w/lovenox Continue PPN Hospice arrangement pending Reduce Lovenox to once daily Medications reviewed and continue provide symptomatic and supportive care, Because of family unable to make decision regarding goal of care and hospice, patient's care is delayed significantly for last 3 to 4 days,
[2020-04-03] MEDS: Mirtazapine 15 MG TAB PO SCH (20:14)
[2020-04-03] MEDS: OLANZapine 2.5 MG TAB PO SCH (20:14)
[2020-04-04] MEDS: Cholecalciferol 1,000 UNITS (25 MCG) TAB PO SCH ×2 (07:51→07:54)
[2020-04-04] MEDS: Zinc Sulfate 220 MG CAP PO SCH ×2 (07:51→07:53)
[2020-04-04] MEDS: Ascorbic Acid 500 mg Chewable Tablet PO SCH (07:53)
[2020-04-04] MEDS: Amlodipine 5 MG TAB PO SCH ×2 (07:54→20:58)
[2020-04-04] MEDS: Saccharomyces boulardii 250 MG CAP PO SCH (07:54)
[2020-04-04] MEDS: Aspirin 81 mg Enteric Coated Tablet PO SCH (07:54)
[2020-04-04] MEDS: Enoxaparin Sodium 30 MG/0.3 ML SYRINGE SC SCH (07:54)
--- NOTE | 2020-04-04 11:47 | PDOC.HOSPP ---
- Subjective Encounter Date: 04/04/20 Encounter Time: 09:15 Subjective: Patient seen and examined. No overnight events - Objective Vital Signs & Weight: Vital Signs (12 hours) Temp Pulse Resp BP Pulse Ox 04/04/20 08:00 98 04/04/20 07:54 74 04/04/20 07:25 97.9 F 76 18 167/61 H 95 Weight Admit Weight 106 lb 1.6 oz Weight 106 lb 1.6 oz I&O: 04/03/20 04/04/20 04/05/20 06:59 06:59 06:59 Intake Total 1128 996 Output Total 680 Balance 448 996 Result Diagrams: 03/29/20 05:59 03/28/20 07:05 Additional Labs: Accuchecks 04/04/20 04/04/20 04/03/20 10:57 05:56 20:30 POC Glucose 140 H 134 H 136 H 04/03/20 15:51 POC Glucose 146 H Hospitalist ROS - Review of Systems ROS unobtainable: due to mental status - Medication Medications: Active Medications Generic Name Dose Route Start Last Admin Trade Name Samsonq PRN Reason Stop Dose Admin Amlodipine Besylate 5 mg 03/13/20 09:00 04/04/20 07:54 Amlodipine 5 Mg Tab PO 5 mg BID MANA Administration Ascorbic Acid 1,000 mg 03/12/20 09:00 04/04/20 07:53 Ascorbic Acid 500 Mg Chewable Tablet PO 1,000 mg DAILY MANA Administration Aspirin 81 mg 03/22/20 09:00 04/04/20 07:54 Aspirin 81 Mg Enteric Coated Tablet PO 81 mg DAILY MANA Administration Cholecalciferol 1,000 units 03/30/20 09:00 04/04/20 07:54 Cholecalciferol 1,000 Units (25 Mcg) Tab PO 1,000 units DAILY MANA Administration Enoxaparin Sodium 30 mg 04/04/20 09:00 04/04/20 07:54 Enoxaparin Sodium 30 Mg/0.3 Ml Syringe SC 30 mg 0900 MANA Administration Sodium Acetate 20 meq/ Sodium 1,034.7641 mls @ 86.23 mls/hr 04/02/20 09:00 04/03/20 20:15 Chloride 15 meq/ Potassium IV 1,034.7641 mls Acetate 10 meq/ Potassium 0900,2100 MANA Administration Phosphate 15 mmol/ Calcium Gluconate 4.5 meq/ Magnesium Sulfate 5 meq/ Amino Acids/ Dextrose Insulin Human Lispro 0 units 03/12/20 03:15 03/16/20 17:34 Humalog 300 Units/3 Ml Vial SC 2 unit .MILD SLIDING SCALE PRN Administration MILD SLIDING SCALE Protocol Mirtazapine 15 mg 03/21/20 21:00 04/03/20 20:14 Mirtazapine 15 Mg Tab PO 15 mg HS MANA Administration Olanzapine 2.5 mg 03/24/20 21:00 04/03/20 20:14 Olanzapine 2.5 Mg Tab PO 2.5 mg HS MANA Administration Saccharomyces Boulardii 250 mg 03/20/20 09:00 04/04/20 07:54 Saccharomyces Boulardii 250 Mg Cap PO 250 mg DAILY MANA Administration Sodium Chloride 10 ml 03/12/20 21:00 04/04/20 07:55 Flush - Normal Saline 10 Ml Syringe IVF 10 ml Q12HR MANA Administration Zinc Sulfate 220 mg 03/12/20 09:00 04/04/20 07:53 Zinc Sulfate 220 Mg Cap PO 220 mg DAILY MANA Administration - Exam General Appearance: NAD Eye: PERRL ENT: normocephalic atraumatic, dry oral mucosa Neck: supple, symmetric, no JVD Heart: RRR, no murmur, no gallops Respiratory: no wheezes, no rales, no ronchi Gastrointestinal: soft, non-distended, normal bowel sounds Extremities: no clubbing, no edema Skin: normal turgor Neurological: no new deficit Psychiatric: not oriented Hosp A/P (1) Dysphagia Code(s): R13.10 - DYSPHAGIA, UNSPECIFIED Status: Acute Qualifiers: Dysphagia type: oropharyngeal phase Qualified Code(s): R13.12 - Dysphagia, oropharyngeal phase (2) Weakness generalized Code(s): R53.1 - WEAKNESS Status: Acute (3) Alzheimer's dementia Code(s): G30.9 - ALZHEIMER'S DISEASE, UNSPECIFIED; F02.80 - DEMENTIA IN OTH DISEASES CLASSD ELSWHR W/O BEHAVRL DISTURB Status: Chronic (4) Anxiety and depression Code(s): F41.9 - ANXIETY DISORDER, UNSPECIFIED; F32.9 - MAJOR DEPRESSIVE DISO RDER, SINGLE EPISODE, UNSPECIFIED Status: Chronic (5) Diabetes mellitus Code(s): E11.9 - TYPE 2 DIABETES MELLITUS WITHOUT COMPLICATIONS Status: Chronic Qualifiers: Diabetes mellitus type: type 2 (6) Hypertension Code(s): I10 - ESSENTIAL (PRIMARY) HYPERTENSION Status: Chronic Qualifiers: Hypertension type: essential hypertension Qualified Code(s): I10 - Essential (primary) hypertension - Plan old records reviewed/req, social sciences chair Discontinue PPN as not available Changed to IV fluid dextrose NS with 1 ampoule of vitamin at 75 mill per hour Once hospice arrangement completed then will consider discharge to hospice facility
--- NOTE | 2020-04-04 11:53 | PDOC.DS.DS ---
Provider - Provider Date of Admission: 03/11/20 21:18 Date of Discharge: 04/04/20 Admitting Provider: Deepak Johnson MD Consultations: Gastroentrology, General Surgery Primary Care Physician: Steven Mayer MD Course - Hospital Course Hospital Course: 85-year-old female who was admitted on March 12, 2020. 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 During this admission patient had prolonged hospital stay is because of delay from family members decision regarding PEG tube versus hospice care and goal of care. General surgery discussed with the family member and family member subsequently decided not to go for any surgical PEG tube. We discussed with the family member about goal of care and they agreed with [facility]. At this point hospice arrangement is pending, once arrangement completed then patient will be discharged back to [facility] with hospice for comfort care. - Labs Lab Results: 03/29/20 05:59 03/28/20 07:05 - Physical Exam Vitals: Vital Signs (12 hours) Temp Pulse Resp BP Pulse Ox 04/04/20 08:00 98 04/04/20 07:54 74 04/04/20 07:25 97.9 F 76 18 167/61 H 95 Weight Admit Weight 106 lb 1.6 oz Weight 106 lb 1.6 oz Physical Exam: The patient was seen and examined on the day of discharge. Problem - Problem (1) Dysphagia Code(s): R13.10 - DYSPHAGIA, UNSPECIFIED Status: Acute Qualifiers: Dysphagia type: oropharyngeal phase Qualified Code(s): R13.12 - Dysphagia, oropharyngeal phase (2) Weakness generalized Code(s): R53.1 - WEAKNESS Status: Acute (3) Alzheimer's dementia Code(s): G30.9 - ALZHEIMER'S DISEASE, UNSPECIFIED; F02.80 - DEMENTIA IN OTH DISEASES CLASSD ELSWHR W/O BEHAVRL DISTURB Status: Chronic (4) Anxiety and depression Code(s): F41.9 - ANXIETY DISORDER, UNSPECIFIED; F32.9 - MAJOR DEPRESSIVE DISORDER, SINGLE EPISODE, UNSPECIFIED Status: Chronic (5) Diabetes mellitus Code(s): E11.9 - TYPE 2 DIABETES MELLITUS WITHOUT COMPLICATIONS Status: Chronic Qualifiers: Diabetes mellitus type: type 2 (6) Hypertension Code(s): I10 - ESSENTIAL (PRIMARY) HYPERTENSION Status: Chronic Qualifiers: Hypertension type: essential hypertension Qualified Code(s): I10 - Es sential (primary) hypertension Plan - Discharge Medications Home Medications: Medication Instructions Recorded Confirmed Type Cholecalciferol (Vitamin D3) 5,000 unit PO DAILY 09/01/16 03/12/20 History [Vitamin D3] Memantine HCl 10 mg PO BID-PC 09/01/16 03/12/20 History Mirtazapine [Remeron] 15 mg PO HS 09/01/16 03/12/20 History Potassium Chloride 20 meq PO TID-WM 09/01/16 03/12/20 History Aspirin [Ecotrin Low Strength] 81 mg PO DAILY 03/12/20 03/12/20 History Diltiazem HCl [Cartia XT] 1 each PO HS 03/12/20 03/12/20 History Divalproex Sodium [Depakote 125 mg PO BID 03/12/20 03/12/20 History Sprinkle] Docusate Sodium [Dulcoease] 100 mg PO HS 03/12/20 03/12/20 History Gabapentin [Neurontin] 300 mg PO TID 03/12/20 03/12/20 History Galantamine HBr [Galantamine ER] 16 mg PO DAILY 03/12/20 03/12/20 History Lactobacillus Acidophilus 1 each PO BID 03/12/20 03/12/20 History [Acidophilus] Loratadine [Claritin] 10 mg PO DAILY 03/12/20 03/12/20 History Magnesium Oxide [Magox 400] 400 mg PO BID 03/12/20 03/12/20 History OLANZapine [ZyPREXA] 7.5 mg PO HS 03/12/20 03/12/20 History 147/Iron/Folic Acid 1 each PO DAILY 03/12/20 03/12/20 History [Azesco Tablet] Venlafaxine HCl [Effexor XR] 300 mg PO DAILY 03/12/20 03/12/20 History Allergies: No Known Drug Allergies Allergy (Verified 03/12/20 02:47) per assisted living paperwork - Discharge Instructions Activity:: Activity as Tolerated Nourishment:: No Restrictions Therapies:: Not Applicable Equipment/Supplies:: Not Applicable IV Therapy:: Not Applicable - Follow up Plan Referrals: Steven Mayer MD [Primary Care Provider] - Disposition: HOSPICE-HOME Quality - Care Measures CORE MEASURES:: N/A
[2020-04-04] MEDS: Sodium Acetate 2 mEq/ml 20 MEQ, Sodium Chloride 15 MEQ, Potassium ACETATE 10 MEQ, Potas... IV SCH (12:05)
--- NOTE | 2020-04-04 14:25 | PDOC.PALPN ---
Palliative Progress Note - Subjective Cachectic, frail. No purposeful engagement. Total assist for ADL. Poor intake. As previously documented patient has been bed/gerichair bound for over a year, assist with meals. - Objective Vital Signs: Vital Signs - Most Recent Temp Pulse Resp BP Pulse Ox 97.9 F 74 18 167/61 H 98 04/04/20 07:25 04/04/20 07:54 04/04/20 07:25 04/04/20 07:25 04/04/20 08:00 - Physical Exam Constitutional: cachectic, confusion, emaciated, ill appearing HEENT: EOMI, poor dentition Respiratory: no rhonchi, no wheezing, unlabored breathing Cardiovascular: RRR, diminished peripheral pulses Gastrointestinal: soft, non-tender, positive bowel sounds, incontinent Genitourinary: incontinent Musculoskeletal: no cyanosis, no clubbing, diffuse muscle atrophy, muscle wasting Skin: cap refill <2 seconds, fragile Deviation from normal: FAST 7F - Assessment (1) Dysphagia Code(s): R13.10 - DYSPHAGIA, UNSPECIFIED Current Visit: Yes Status: Acute Qualifiers: Dysphagia type: oropharyngeal phase Qualified Code(s): R13.12 - Dysphagia, oropharyngeal phase (2) Palliative care encounter Code(s): Z51.5 - ENCOUNTER FOR PALLIATIVE CARE Current Visit: Yes Status: Acute (3) Altered mental status Code(s): R41.82 - ALTERED MENTAL STATUS, UNSPECIFIED Current Visit: No Status: Acute (4) Alzheimer's dementia Code(s): G30.9 - ALZHEIMER'S DISEASE, UNSPECIFIED; F02.80 - DEMENTIA IN OTH DISEASES CLASSD ELSWHR W/O BEHAVRL DISTURB Current Visit: No Status: Chronic (5) Diabetes mellitus Code(s): E11.9 - TYPE 2 DIABETES MELLITUS WITHOUT COMPLICATIONS Current Visit: No Status: Chronic Qualifiers: Diabetes mellitus type: type 2 - Plan Plan: Previous communication with Gely and her spouse Delon confirmed no PEG. Elected to discuss hospice with [facility] back to [facility]. Attempted to call Gely, no answer x2. Goal has been identified. Palliative care will sign off as Goals met, addressed. Thank you for this very appropriate consult. [20] minutes spent on this encounter with >50% of the time in counseling and coordination of care. - ROS Non Response: due to mental status
[2020-04-04] MEDS: Multivitamins, Adult 10 ML in Dextrose 5 % And 0.9 % NaCl 1,000 ML IV SCH (14:47)
[2020-04-04] MEDS: Mirtazapine 15 MG TAB PO SCH (20:58)
[2020-04-04] MEDS: OLANZapine 2.5 MG TAB PO SCH (20:58)
[2020-04-05] MEDS: Multivitamins, Adult 10 ML in Dextrose 5 % And 0.9 % NaCl 1,000 ML IV SCH ×2 (05:40→21:04)
[2020-04-05] MEDS: Zinc Sulfate 220 MG CAP PO SCH (09:37)
[2020-04-05] MEDS: Cholecalciferol 1,000 UNITS (25 MCG) TAB PO SCH (09:37)
[2020-04-05] MEDS: Aspirin 81 mg Enteric Coated Tablet PO SCH ×2 (09:37→09:53)
[2020-04-05] MEDS: Saccharomyces boulardii 250 MG CAP PO SCH ×2 (09:38→09:53)
[2020-04-05] MEDS: Amlodipine 5 MG TAB PO SCH ×2 (09:38→20:16)
[2020-04-05] MEDS: Ascorbic Acid 500 mg Chewable Tablet PO SCH ×2 (09:38→09:52)
[2020-04-05] MEDS: Enoxaparin Sodium 30 MG/0.3 ML SYRINGE SC SCH (09:38)
--- NOTE | 2020-04-05 13:48 | PDOC.HOSPP ---
- Subjective Encounter Date: 04/05/20 Encounter Time: 10:15 Subjective: Patient seen and examined. No overnight events - Objective Vital Signs & Weight: Vital Signs (12 hours) Temp Pulse Resp BP BP Pulse Ox 04/05/20 12:15 97.4 F L 83 20 124/63 100 04/05/20 08:00 97.5 F L 82 16 96/49 L 99 Weight Admit Weight 106 lb 1.6 oz Weight 106 lb 1.6 oz I&O: 04/04/20 04/05/20 04/06/20 06:59 06:59 06:59 Intake Total 996 1000 Output Total 400 Balance 996 600 Result Diagrams: 03/29/20 05:59 03/28/20 07:05 Additional Labs: Accuchecks 04/05/20 04/05/20 04/04/20 12:00 05:14 20:06 POC Glucose 130 H 155 H 129 H 04/04/20 15:26 POC Glucose 177 H Hospitalist ROS - Review of Systems ROS unobtainable: due to mental status - Medication Medications: Active Medications Generic Name Dose Route Start Last Admin Trade Name Samsonq PRN Reason Stop Dose Admin Amlodipine Besylate 5 mg 03/13/20 09:00 04/05/20 09:38 Amlodipine 5 Mg Tab PO Not Given BID [facility] Ascorbic Acid 1,000 mg 03/12/20 09:00 04/05/20 09:52 Ascorbic Acid 500 Mg Chewable Tablet PO Not Given DAILY MANA Aspirin 81 mg 03/22/20 09:00 04/05/20 09:53 Aspirin 81 Mg Enteric Coated Tablet PO Not Given DAILY MANA Cholecalciferol 1,000 units 03/30/20 09:00 04/04/20 07:54 Cholecalciferol 1,000 Units (25 Mcg) Tab PO 1,000 units DAILY MANA Administration Enoxaparin Sodium 30 mg 04/04/20 09:00 04/05/20 09:38 Enoxaparin Sodium 30 Mg/0.3 Ml Syringe SC 30 mg 0900 MANA Administration Multivitamins 10 ml/ Dextrose/ 1,010 mls @ 75 mls/hr 04/04/20 12:15 04/05/20 05:40 Sodium Chloride IV 1,010 mls INF MANA Administration Insulin Human Lispro 0 units 03/12/20 03:15 03/16/20 17:34 Humalog 300 Units/3 Ml Vial SC 2 unit .MILD SLIDING SCALE PRN Administration MILD SLIDING SCALE Protocol Mirtazapine 15 mg 03/21/20 21:00 04/04/20 20:58 Mirtazapine 15 Mg Tab PO 15 mg HS MANA Administration Olanzapine 2.5 mg 03/24/20 21:00 04/04/20 20:58 Olanzapine 2.5 Mg Tab PO 2.5 mg HS MANA Administration Saccharomyces Boulardii 250 mg 03/20/20 09:00 04/05/20 09:53 Saccharomyces Boulardii 250 Mg Cap PO Not Given DAILY MANA Sodium Chloride 10 ml 03/12/20 21:00 04/05/20 10:22 Flush - Normal Saline 10 Ml Syringe IVF Not Given Q12HR MANA Zinc Sulfate 220 mg 03/12/20 09:00 04/04/20 07:53 Zinc Sulfate 220 Mg Cap PO 220 mg DAILY MANA Administration - Exam General Appearance: NAD, ill appearing Eye: PERRL, anicteric sclera ENT: normocephalic atraumatic, dry oral mucosa Neck: supple, symmetric, no JVD Heart: RRR, no murmur, no gallops, no rubs Respiratory: no wheezes, no rales, no ronchi Gastrointestinal: soft, non-tender, non-distended, normal bowel sounds Extremities: no cyanosis, no clubbing, no edema Neurological: no new deficit Musculoskeletal: normal tone, generalized weakness, diffuse muscle atrophy Psychiatric: not oriented Hosp A/P (1) Dysphagia Code(s): R13.10 - DYSPHAGIA, UNSPECIFIED Status: Acute Qualifiers: Dysphagia type: oropharyngeal phase Qualified Code(s): R13.12 - Dysphagia, oropharyngeal phase (2) Weakness generalized Code(s): R53.1 - WEAKNESS Status: Acute (3) Alzheimer's dementia Code(s): G30.9 - ALZHEIMER'S DISEASE, UNSPECIFIED; F02.80 - DEMENTIA IN OTH DISEASES CLASSD ELSWHR W/O BEHAVRL DISTURB Status: Chronic (4) Anxiety and depression Code(s): F41.9 - ANXIETY DISORDER, UNSPECIFIED; F32.9 - MAJOR DEPRESSIVE DISORDER, SINGLE EPISODE, UNSPECIFIED Status: Chronic (5) Diabetes mellitus Code(s): E11.9 - TYPE 2 DIABETES MELLITUS WITHOUT COMPLICATIONS Status: Chronic Qualifiers: Diabetes mellitus type: type 2 (6) Hypertension Code(s): I10 - ESSENTIAL (PRIMARY) HYPERTENSION Status: Chronic Qualifiers: Hypertension type: essential hypertension Qualified Code(s): I10 - Essential (primary) hypertension - Plan old records reviewed/req, plan discussed w/ family Continue IV fluid for hydration Discussed with the patient's family member, they are requesting to repeat COVID- 19 test so repeat COVID-19 test is ordered, Social work needs to discuss with the family member about discharge placement, They agreed with and not placing any PEG tube, They agreed with hospice but they are not moving forward with the facility, Care delay from patient's family member regarding discharge process for almost 1 week
[2020-04-05] MEDS: OLANZapine 2.5 MG TAB PO SCH (20:09)
[2020-04-05] MEDS: Mirtazapine 15 MG TAB PO SCH (20:09)
[2020-04-06] MEDS: Saccharomyces boulardii 250 MG CAP PO SCH (08:30)
[2020-04-06] MEDS: Ascorbic Acid 500 mg Chewable Tablet PO SCH (08:30)
[2020-04-06] MEDS: Amlodipine 5 MG TAB PO SCH ×2 (08:30→20:24)
[2020-04-06] MEDS: Cholecalciferol 1,000 UNITS (25 MCG) TAB PO SCH (08:30)
[2020-04-06] MEDS: Aspirin 81 mg Enteric Coated Tablet PO SCH (08:30)
[2020-04-06] MEDS: Zinc Sulfate 220 MG CAP PO SCH (08:31)
[2020-04-06] MEDS: Enoxaparin Sodium 30 MG/0.3 ML SYRINGE SC SCH (08:32)
[2020-04-06] MEDS: Multivitamins, Adult 10 ML in Dextrose 5 % And 0.9 % NaCl 1,000 ML IV SCH (11:15)
[2020-04-06 12:41] LABS: SARS-CoV-2 PCR by NAA DETECTED (NotDetected)
--- NOTE | 2020-04-06 18:02 | PDOC.HOSPP ---
- Subjective Encounter Date: 04/06/20 Encounter Time: 18:01 Subjective: Mr. Jackson was seen today in follow-up of COVID pneumonia. She appears stable. She is a bit confused, but will answer questions. - Objective Vital Signs & Weight: Vital Signs (12 hours) Temp Pulse Resp BP Pulse Ox 04/06/20 08:55 100 04/06/20 08:30 70 04/06/20 07:39 97.4 F L 70 16 113/58 L 100 04/06/20 06:04 97.4 F L 73 18 117/55 L 100 Weight Admit Weight 106 lb 1.6 oz Weight 106 lb 1.6 oz I&O: 04/05/20 04/06/20 04/07/20 06:59 06:59 06:59 Intake Total 1000 Output Total 400 Balance 600 Result Diagrams: 03/29/20 05:59 03/28/20 07:05 Additional Labs: Accuchecks 04/06/20 04/06/20 04/06/20 16:12 11:34 05:14 POC Glucose 115 H 173 H 151 H 04/05/20 20:01 POC Glucose 133 H Hospitalist ROS - Medication Medications: Active Medications Generic Name Dose Route Start Last Admin Trade Name Freq PRN Reason Stop Dose Admin Amlodipine Besylate 5 mg 03/13/20 09:00 04/06/20 08:30 Amlodipine 5 Mg Tab PO 5 mg BID MANA Administration Ascorbic Acid 1,000 mg 03/12/20 09:00 04/06/20 08:30 Ascorbic Acid 500 Mg Chewable Tablet PO 1,000 mg DAILY MANA Administration Aspirin 81 mg 03/22/20 09:00 04/06/20 08:30 Aspirin 81 Mg Enteric Coated Tablet PO 81 mg DAILY MANA Administration Cholecalciferol 1,000 units 03/30/20 09:00 04/06/20 08:30 Cholecalciferol 1,000 Units (25 Mcg) Tab PO 1,000 units DAILY MANA Administration Enoxaparin Sodium 30 mg 04/04/20 09:00 04/06/20 08:32 Enoxaparin Sodium 30 Mg/0.3 Ml Syringe SC 30 mg 0900 MANA Administration Multivitamins 10 ml/ Dextrose/ 1,010 mls @ 75 mls/hr 04/04/20 12:15 04/06/20 11:15 Sodium Chloride IV 1,010 mls INF MANA Administration Insulin Human Lispro 0 units 03/12/20 03:15 03/16/20 17:34 Humalog 300 Units/3 Ml Vial SC 2 unit .MILD SLIDING SCALE PRN Administration MILD SLIDING SCALE Protocol Mirtazapine 15 mg 03/21/20 21:00 04/05/20 20:09 Mirtazapine 15 Mg Tab PO 15 mg HS MANA Administration Olanzapine 2.5 mg 03/24/20 21:00 04/05/20 20:09 Olanzapine 2.5 Mg Tab PO 2.5 mg HS MANA Administration Saccharomyces Boulardii 250 mg 03/20/20 09:00 04/06/20 08:30 Saccharomyces Boulardii 250 Mg Cap PO 250 mg DAILY MANA Administration Sodium Chloride 10 ml 03/12/20 21:00 04/06/20 08:32 Flush - Normal Saline 10 Ml Syringe IVF Not Given Q12HR MANA Zinc Sulfate 220 mg 03/12/20 09:00 04/06/20 08:31 Zinc Sulfate 220 Mg Cap PO 220 mg DAILY MANA Administration - Exam General Appearance: NAD General - other findings: thin and frail Eye: PERRL, anicteric sclera Heart: RRR, no murmur, no gallops, no rubs, normal peripheral pulses Respiratory: CTAB, no wheezes, no rales, no ronchi, normal chest expansion Gastrointestinal: soft, non-tender, non-distended, normal bowel sounds Extremities: no cyanosis, no edema Hosp A/P (1) Alzheimer's dementia Code(s): G30.9 - ALZHEIMER'S DISEASE, UNSPECIFIED; F02.80 - DEMENTIA IN OTH DISEASES CLASSD ELSWHR W/O BEHAVRL DISTURB Status: Chronic (2) Diabetes mellitus Code(s): E11.9 - TYPE 2 DIABETES MELLITUS WITHOUT COMPLICATIONS Status: Chronic Qualifiers: Diabetes mellitus type: type 2 (3) Hypertension Code(s): I10 - ESSENTIAL (PRIMARY) HYPERTENSION Status: Chronic Qualifiers: Hypertension type: essential hypertension Qualified Code(s): I10 - Essential (primary) hypertension (4) COVID-19 virus infection Code(s): U07.1 - COVID-19 Status: Acute - Plan * COVID infection- She had a positive test back on March 11. She is not requiring oxygen * HTN- blood pressure is stable * DM- blood glucose is stable * Advanced Alzheimers- Awaiting Hospice
[2020-04-06] MEDS: OLANZapine 2.5 MG TAB PO SCH (20:24)
[2020-04-06] MEDS: Mirtazapine 15 MG TAB PO SCH (20:24)
[2020-04-07] MEDS: Multivitamins, Adult 10 ML in Dextrose 5 % And 0.9 % NaCl 1,000 ML IV SCH ×2 (01:53→15:35)
[2020-04-07] MEDS: Amlodipine 5 MG TAB PO SCH ×2 (08:35→20:35)
[2020-04-07] MEDS: Aspirin 81 mg Enteric Coated Tablet PO SCH (08:35)
[2020-04-07] MEDS: Enoxaparin Sodium 30 MG/0.3 ML SYRINGE SC SCH (08:35)
[2020-04-07] MEDS: Cholecalciferol 1,000 UNITS (25 MCG) TAB PO SCH (08:35)
[2020-04-07] MEDS: Ascorbic Acid 500 mg Chewable Tablet PO SCH (08:35)
[2020-04-07] MEDS: Zinc Sulfate 220 MG CAP PO SCH (08:35)
[2020-04-07] MEDS: Saccharomyces boulardii 250 MG CAP PO SCH (08:35)
[2020-04-07 08:40] LABS: Anion Gap 11 mmol/L (10-20); BUN (Urea Nitrogen) 9 mg/dL (9.8-20.1); Calc. Creatinine Clearance 46 mL/min (70-130); Calcium 8.5 mg/dL (7.8-10.44); Carbon Dioxide 25 mmol/L (23-31); Chloride 106 mmol/L (98-107); Glucose 152 mg/dL (83-110); Sodium 139 mmol/L (136-145)
[2020-04-07 08:42] LABS: Hemoglobin 10.6 g/dL (12.0-16.0); Mean Corpuscular HGB CONC 33.2 g/dL (32.0-36.0); Mean Corpuscular Volume 93.5 fL (78.0-98.0); Mean Platelet Volume 7.2 fL (7.4-10.4); Platelet Count 435 thou/uL (130-400); Potassium 2.8 mmol/L (3.5-5.1); RBC Distribution Width 14.2 % (11.5-14.5); Red Blood Cell (RBC) Count 3.42 mill/uL (4.20-5.40); White Blood Cell (WBC) Count 7.3 thou/uL (4.8-10.8)
[2020-04-07 09:09] LABS: Band 1 % (5-11); Eosinophils 2 % (0-10); Lymphocytes 17 % (21-51); MDiff Complete? YES; Metamyelocyte 1 % (0-0); Monocytes 15 % (0-10); Myelocyte 1 % (0-0); Neutrophil 61 % (42-75); Platelet Morphology Comment Appears Increased; Polychromasia SLIGHT = 2-3 cells (100X) (0-2/hpf); Reactive Lymphocytes 2 % (0-10)
[2020-04-07] MEDS ORDERED: Potassium Bicarbonate/Cit Ac 20 MEQ TAB PO SCH (10:45)
[2020-04-07] MEDS: Potassium Bicarbonate/Cit Ac 20 MEQ TAB PO SCH (17:37)
[2020-04-07] MEDS: OLANZapine 2.5 MG TAB PO SCH (20:35)
[2020-04-07] MEDS: Mirtazapine 15 MG TAB PO SCH (20:35)
[2020-04-08 09:00] LABS: Anion Gap 11 mmol/L (10-20); BUN (Urea Nitrogen) 8 mg/dL (9.8-20.1); Calc. Creatinine Clearance 44 mL/min (70-130); Calcium 8.7 mg/dL (7.8-10.44); Carbon Dioxide 28 mmol/L (23-31); Chloride 106 mmol/L (98-107); Glucose 142 mg/dL (83-110); Potassium 3.7 mmol/L (3.5-5.1); Sodium 141 mmol/L (136-145)
--- NOTE | 2020-04-08 14:22 | PDOC.HOSPP ---
- Subjective Encounter Date: 04/08/20 Encounter Time: 14:18 Subjective: Ms. Jackson was seen today in follow-up. She is awake but does not answer questions for me today. - Objective Vital Signs & Weight: Vital Signs (12 hours) Temp Pulse Resp BP Pulse Ox 04/08/20 07:23 97.3 F L 71 14 125/65 98 Weight Admit Weight 106 lb 1.6 oz Weight 106 lb 1.6 oz I&O: 04/07/20 04/08/20 04/09/20 06:59 06:59 06:59 Intake Total 1230 1400 Output Total 200 300 Balance 1030 1100 Result Diagrams: 04/07/20 07:52 04/08/20 08:17 Additional Labs: Accuchecks 04/08/20 04/07/20 04/07/20 06:15 20:28 16:00 POC Glucose 139 H 167 H 130 H Hospitalist ROS - Medication Medications: Active Medications Generic Name Dose Route Start Last Admin Trade Name Freq PRN Reason Stop Dose Admin Amlodipine Besylate 5 mg 03/13/20 09:00 04/07/20 20:35 Amlodipine 5 Mg Tab PO Not Given BID MANA Ascorbic Acid 1,000 mg 03/12/20 09:00 04/07/20 08:35 Ascorbic Acid 500 Mg Chewable Tablet PO 1,000 mg DAILY MANA Administration Aspirin 81 mg 03/22/20 09:00 04/07/20 08:35 Aspirin 81 Mg Enteric Coated Tablet PO 81 mg DAILY MANA Administration Cholecalciferol 1,000 units 03/30/20 09:00 04/07/20 08:35 Cholecalciferol 1,000 Units (25 Mcg) Tab PO 1,000 units DAILY MANA Administration Enoxaparin Sodium 30 mg 04/04/20 09:00 04/07/20 08:35 Enoxaparin Sodium 30 Mg/0.3 Ml Syringe SC 30 mg 0900 MANA Administration Multivitamins 10 ml/ Dextrose/ 1,010 mls @ 75 mls/hr 04/04/20 12:15 04/07/20 15:35 Sodium Chloride IV 1,010 mls INF MANA Administration Insulin Human Lispro 0 units 03/12/20 03:15 03/16/20 17:34 Humalog 300 Units/3 Ml Vial SC 2 unit .MILD SLIDING SCALE PRN Administration MILD SLIDING SCALE Protocol Mirtazapine 15 mg 03/21/20 21:00 04/07/20 20:35 Mirtazapine 15 Mg Tab PO Not Given HS MANA Olanzapine 2.5 mg 03/24/20 21:00 04/07/20 20:35 Olanzapine 2.5 Mg Tab PO Not Given HS MANA Potassium Bicarbonate/Citric Acid 20 meq 04/07/20 17:00 04/07/20 17:37 Potassium Bicarbonate/Cit Ac 20 Meq Tab PO 20 meq BID-WM MANA Administration Saccharomyces Boulardii 250 mg 03/20/20 09:00 04/07/20 08:35 Saccharomyces Boulardii 250 Mg Cap PO 250 mg DAILY MANA Administration Sodium Chloride 10 ml 03/12/20 21:00 04/07/20 20:36 Flush - Normal Saline 10 Ml Syringe IVF Not Given Q12HR MANA Zinc Sulfate 220 mg 03/12/20 09:00 04/07/20 08:35 Zinc Sulfate 220 Mg Cap PO 220 mg DAILY MANA Administration - Exam Eye: PERRL, anicteric sclera Heart: RRR, no murmur, no gallops, no rubs, normal peripheral pulses Respiratory: CTAB, rales Gastrointestinal: soft, non-tender, non-distended, normal bowel sounds, no palpable masses Extremities: no cyanosis, no edema Hosp A/P (1) Alzheimer's dementia Code(s): G30.9 - ALZHEIMER'S DISEASE, UNSPECIFIED; F02.80 - DEMENTIA IN OTH DISEASES CLASSD ELSWHR W/O BEHAVRL DISTURB Status: Chronic (2) Diabetes mellitus Code(s): E11.9 - TYPE 2 DIABETES MELLITUS WITHOUT COMPLICATIONS Status: Chronic Qualifiers: Diabetes mellitus type: type 2 (3) Hypertension Code(s): I10 - ESSENTIAL (PRIMARY) HYPERTENSION Status: Chronic Qualifiers: Hypertension type: essential hypertension Qualified Code(s): I10 - Essential (primary) hypertension (4) COVID-19 virus infection Code(s): U07.1 - COVID-19 Status: Acute - Plan * COVID infection- She had a positive test back on March 11. She is not requiring oxygen. She can be taken off isolation * HTN- blood pressure is stable * DM- blood glucose is stable * Advanced Alzheimers- Awaiting Hospice
[2020-04-08] MEDS: Amlodipine 5 MG TAB PO SCH (14:56)
[2020-04-08] MEDS: Potassium Bicarbonate/Cit Ac 20 MEQ TAB PO SCH ×2 (14:56→18:03)
[2020-04-08] MEDS: Cholecalciferol 1,000 UNITS (25 MCG) TAB PO SCH (14:57)
[2020-04-08] MEDS: Enoxaparin Sodium 30 MG/0.3 ML SYRINGE SC SCH (14:57)
[2020-04-08] MEDS: Saccharomyces boulardii 250 MG CAP PO SCH (14:57)
[2020-04-08] MEDS: Ascorbic Acid 500 mg Chewable Tablet PO SCH (14:57)
[2020-04-08] MEDS: Aspirin 81 mg Enteric Coated Tablet PO SCH (14:57)
[2020-04-08] MEDS: Zinc Sulfate 220 MG CAP PO SCH (14:58)
--- NOTE | 2020-04-08 15:06 | PDOC.DS.DS ---
Provider - Provider Date of Admission: 03/11/20 21:18 Date of Discharge: 04/08/20 Admitting Provider: Deepak Johnson MD Primary Care Physician: Steven Mayer MD Course - Hospital Course Hospital Course: 85-year-old female who was admitted on March 12, 2020. 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 During this admission patient had prolonged hospital stay is because of delay from family members decision regarding PEG tube versus hospice care and goal of care. General surgery discussed with the family member and family member subsequently decided not to go for any surgical PEG tube. We discussed with the family member about goal of care and they agreed with hospice. At this point hospice arrangement is pending, once arrangement c ompleted then patient will be discharged back to retirement with hospice for comfort care. Pertinent Studies: CT scan of the brain- no acute infarct, chronic ischemic white matter disease - Labs Lab Results: 04/07/20 07:52 04/08/20 08:17 Abnormal Lab Results - Last 48 hrs 04/07/20 07:52: Potassium 2.8 L*, BUN 9 L 04/07/20 07:52: RBC 3.42 L, Hgb 10.6 L, Hct 32.0 L, Plt Count 435 H, MPV 7.2 L, Band Neuts % (Manual) 1 L, Lymphocytes % (Manual) 17 L, Monocytes % (Manual) 15 H, Myelocytes % 1 H, Plt Morphology Comment Appears Increased H 04/08/20 08:17: BUN 8 L - Physical Exam Vitals: Vital Signs (12 hours) Temp Pulse Resp BP Pulse Ox 04/08/20 07:23 97.3 F L 71 14 125/65 98 Weight Admit Weight 106 lb 1.6 oz Weight 106 lb 1.6 oz Physical Exam: The patient was seen and examined on the day of discharge. Problem - Problem (1) Alzheimer's dementia Code(s): G30.9 - ALZHEIMER'S DISEASE, UNSPECIFIED; F02.80 - DEMENTIA IN OTH DISEASES CLASSD ELSWHR W/O BEHAVRL DISTURB Status: Chronic (2) Diabetes mellitus Code(s): E11.9 - TYPE 2 DIABETES MELLITUS WITHOUT COMPLICATIONS Status: Chronic Qualifiers: Diabetes mellitus type: type 2 (3) Hypertension Code(s): I10 - ESSENTIAL (PRIMARY) HYPERTENSION Status: Chronic Qualifiers: Hypertension type: essential hypertension Qualified Code(s): I10 - Essential (primary) hypertension (4) COVID-19 virus infection Code(s): U07.1 - COVID-19 Status: Acute Plan - Discharge Medications Home Medications: Medication Instructions Recorded Confirmed Type Cholecalciferol (Vitamin D3) 5,000 unit PO DAILY 09/01/16 03/12/20 History [Vitamin D3] Memantine HCl 10 mg PO BID-PC 09/01/16 03/12/20 History Mirtazapine [Remeron] 15 mg PO HS 09/01/16 03/12/20 History Potassium Chloride 20 meq PO TID-WM 09/01/16 03/12/20 History Aspirin [Ecotrin Low Strength] 81 mg PO DAILY 03/12/20 03/12/20 History Diltiazem HCl [Cartia XT] 1 each PO HS 03/12/20 03/12/20 History Divalproex Sodium [Depakote 125 mg PO BID 03/12/20 03/12/20 History Sprinkle] Docusate Sodium [Dulcoease] 100 mg PO HS 03/12/20 03/12/20 History Gabapentin [Neurontin] 300 mg PO TID 03/12/20 03/12/20 History Galantamine HBr [Galantamine ER] 16 mg PO DAILY 03/12/20 03/12/20 History Lactobacillus Acidophilus 1 each PO BID 03/12/20 03/12/20 History [Acidophilus] Loratadine [Claritin] 10 mg PO DAILY 03/12/20 03/12/20 History Magnesium Oxide [Magox 400] 400 mg PO BID 03/12/20 03/12/20 History OLANZapine [ZyPREXA] 7.5 mg PO HS 03/12/20 03/12/20 History 147/Iron/Folic Acid 1 each PO DAILY 03/12/20 03/12/20 History [Azesco Tablet] Venlafaxine HCl [Effexor XR] 300 mg PO DAILY 03/12/20 03/12/20 History Allergies: No Known Drug Allergies Allergy (Verified 03/12/20 02:47) per assisted living paperwork - Discharge Instructions Activity:: Activity as Tolerated Nourishment:: No Restrictions Therapies:: Not Applicable Equipment/Supplies:: Not Applicable IV Therapy:: Not Applicable - Follow up Plan Referrals: [facility] [Other] Cesar Taylor MD [Active] - Steven Mayer MD [Primary Care Provider] - Ahmet Cruz MD [Active] - Disposition: HOSPICE-HOME Quality - Care Measures CORE MEASURES:: N/A
--- NOTE | 2020-04-08 15:36 | PDOC.HOSPP ---
- Subjective Encounter Date: 04/07/20 Encounter Time: 17:35 Subjective: Ms. Jackson was seen today in follow-up. She has not had any significant change overnight. - Objective Vital Signs & Weight: Vital Signs (12 hours) Temp Pulse Resp BP Pulse Ox 04/08/20 07:23 97.3 F L 71 14 125/65 98 Weight Admit Weight 106 lb 1.6 oz Weight 106 lb 1.6 oz I&O: 04/07/20 04/08/20 04/09/20 06:59 06:59 06:59 Intake Total 1230 1400 Output Total 200 300 Balance 1030 1100 Result Diagrams: 04/07/20 07:52 04/08/20 08:17 Additional Labs: Accuchecks 04/08/20 04/07/20 04/07/20 06:15 20:28 16:00 POC Glucose 139 H 167 H 130 H Hospitalist ROS - Medication Medications: Active Medications Generic Name Dose Route Start Last Admin Trade Name Freq PRN Reason Stop Dose Admin Amlodipine Besylate 5 mg 03/13/20 09:00 04/08/20 14:56 Amlodipine 5 Mg Tab PO Not Given BID [facility] Ascorbic Acid 1,000 mg 03/12/20 09:00 04/08/20 14:57 Ascorbic Acid 500 Mg Chewable Tablet PO Not Given DAILY [facility] Aspirin 81 mg 03/22/20 09:00 04/08/20 14:57 Aspirin 81 Mg Enteric Coated Tablet PO Not Given DAILY [facility] Cholecalciferol 1,000 units 03/30/20 09:00 04/08/20 14:57 Cholecalciferol 1,000 Units (25 Mcg) Tab PO Not Given DAILY [facility] Enoxaparin Sodium 30 mg 04/04/20 09:00 04/08/20 14:57 Enoxaparin Sodium 30 Mg/0.3 Ml Syringe SC Not Given 0900 MANA Multivitamins 10 ml/ Dextrose/ 1,010 mls @ 75 mls/hr 04/04/20 12:15 04/07/20 15:35 Sodium Chloride IV 1,010 mls INF MANA Administration Insulin Human Lispro 0 units 03/12/20 03:15 03/16/20 17:34 Humalog 300 Units/3 Ml Vial SC 2 unit .MILD SLIDING SCALE PRN Administration MILD SLIDING SCALE Protocol Mirtazapine 15 mg 03/21/20 21:00 04/07/20 20:35 Mirtazapine 15 Mg Tab PO Not Given HS MANA Olanzapine 2.5 mg 03/24/20 21:00 04/07/20 20:35 Olanzapine 2.5 Mg Tab PO Not Given HS MANA Potassium Bicarbonate/Citric Acid 20 meq 04/07/20 17:00 04/08/20 14:56 Potassium Bicarbonate/Cit Ac 20 Meq Tab PO Not Given BID-WM MANA Saccharomyces Boulardii 250 mg 03/20/20 09:00 04/08/20 14:57 Saccharomyces Boulardii 250 Mg Cap PO Not Given DAILY MANA Sodium Chloride 10 ml 03/12/20 21:00 04/08/20 14:57 Flush - Normal Saline 10 Ml Syringe IVF Not Given Q12HR MANA Zinc Sulfate 220 mg 03/12/20 09:00 04/08/20 14:58 Zinc Sulfate 220 Mg Cap PO Not Given DAILY MANA - Exam General - other findings: thin and frail Eye: PERRL, anicteric sclera ENT: normocephalic atraumatic, no oropharyngeal lesions Heart: RRR, no murmur, no gallops, no rubs, normal peripheral pulses Respiratory: CTAB, no wheezes, no rales, no ronchi, normal chest expansion, no tachypnea Gastrointestinal: soft, non-tender, non-distended, normal bowel sounds, no palpable masses, no hepatomegaly Extremities: no cyanosis, no edema Hosp A/P (1) Alzheimer's dementia Code(s): G30.9 - ALZHEIMER'S DISEASE, UNSPECIFIED; F02.80 - DEMENTIA IN OTH DISEASES CLASSD ELSWHR W/O BEHAVRL DISTURB Status: Chronic (2) Diabetes mellitus Code(s): E11.9 - TYPE 2 DIABETES MELLITUS WITHOUT COMPLICATIONS Status: Chronic Qualifiers: Diabetes mellitus type: type 2 (3) Hypertension Code(s): I10 - ESSENTIAL (PRIMARY) HYPERTENSION Status: Chronic Qualifiers: Hypertension type: essential hypertension Qualified Code(s): I10 - Essential (primary) hypertension (4) COVID-19 virus infection Code(s): U07.1 - COVID-19 Status: Acute - Plan * COVID infection- She had a positive test back on March 11. She is not requiring oxygen. * HTN- blood pressure is stable * DM- blood glucose is stable * Advanced Alzheimers- Awaiting family input regarding Hospice * No new recommendations
[2020-04-08 19:29] VITALS: BP 143/65; TEMP 97.2
--- NOTE | 2020-04-11 02:17 | PQF ---
CLINICAL DOCUMENTATION CLARIFICATION FORM: Dear : Kenneth Galeano Date / Time: 04/11/20215 Please exercise your independent, professional judgment in responding to the clarification form. Clinical indicators are provided on the bottom of this form for your review Please check appropriate box(es): [ ] Aspiration Pneumonia [ ] Covid 19 Pneumonia [X ] Other diagnosis __She may have both COVID pneumonia and aspiration pneumonia [ ] Unable to determine Physician Signature: Date/Time: For continuity of documentation, please document condition throughout progress notes and discharge summary. Thank You. To be completed by CDI/Coding staff for physician review: Present Clinical Indicators - Signs / Symptoms / Labs Results and Location in Medical Record [x] WBC 6.5, Plt count 276, Neutrophils 86.1, Lactic acid 4.8 Laboratory 03/11 [x] Chest X-ray: No acute pulmonary findings Imaging Dr Kim 03/11 [x] Chest X-ray: Interval development of opacity in the left perihilar region.left upper lobe region. Findings are suspicious for infectious pneumonitis or aspiration Imaging Dr Gage 03/25 [x] BP 116/64, Pulse 70, Resp 18, Temp 98.5 Vital signs 03/11 [x] SARs-Cov-N Rna: Detected Serology 04/11 [x] Covid infection H&P p4 03/11 Dr Johnson [x] Pneumonia-Aspiration versus Covid 19 Pneumonia HPN p4 03/28 Dr Beckford [x] Swallow Dysfunction HPN p4 03/28 Dr Beckford Present Risk Factors Results and Location in Medical Record [x] 85 year-old Female H&P p1 03/11 Dr Johnson [x] Dementia H&P p1 03/11 Dr Johnson [x] Sepsis H&P p1 03/11 Dr Johnson [x] DM H&P p1 03/11 Dr Johnson Present Treatments Results and Location in Medical Record [x] IV Azithromycin 500 mg MAY 27 [x] IV Ceftriaxone 1 gm MAY 27 [x] IVF Ns 1L MAY 27 [x] IV Vancomycin 1 gm MAY 27 [x] Oxygen 3L Respiratory Panel 03/11 [x] Isolation Order 03/11 [x] EGD Procedure 03/30 [facility] Signature: Hortencia Tapia Phone #: [phone] Date/Time: 04/11/20 0216 This is a permanent part of the Medical Record [facility]
== END 2020-04-08 19:25 | disposition hospice, home (50) | DRG 871 ==
LOC: ERS 19:25 → T4-B 21:18
PROVIDERS: ADMIT Student in an Organized Health Care Education/Training Program; ATTEND Internal Medicine
PROC: 8E0ZXY6 Isolation (ICD-10-PCS; principal; 2020-03-11)
PROC: 0DJ08ZZ Inspection of Upper Intestinal Tract, Via Natural or Artificial Opening Endoscopic (ICD-10-PCS; 2020-03-30)
DX: A41.89 Other specified sepsis (principal); U07.1 COVID-19; J12.82 Pneumonia due to coronavirus disease 2019; G92 Toxic encephalopathy; J69.0 Pneumonitis due to inhalation of food and vomit; Z51.5 Encounter for palliative care; Z66 Do not resuscitate; E87.2 Acidosis; N30.00 Acute cystitis without hematuria; N17.9 Acute kidney failure, unspecified; E44.0 Moderate protein-calorie malnutrition; Z68.1 Body mass index [BMI] 19.9 or less, adult; R64 Cachexia; R65.20 Severe sepsis without septic shock; R13.12 Dysphagia, oropharyngeal phase; G30.9 Alzheimer's disease, unspecified; F02.80 Dementia in other diseases classified elsewhere, unspecified severity, without behavioral disturbance, psychotic disturbance, mood disturbance, and anxiety; E11.9 Type 2 diabetes mellitus without complications; I10 Essential (primary) hypertension; F41.9 Anxiety disorder, unspecified; R62.7 Adult failure to thrive; E86.0 Dehydration; K31.89 Other diseases of stomach and duodenum; F32.9 Major depressive disorder, single episode, unspecified; E87.6 Hypokalemia; Z53.20 Procedure and treatment not carried out because of patient's decision for unspecified reasons; Z79.899 Other long term (current) drug therapy; Z78.1 Physical restraint status; Z99.3 Dependence on wheelchair; Z86.73 Personal history of transient ischemic attack (TIA), and cerebral infarction without residual deficits; Z79.82 Long term (current) use of aspirin; Z79.84 Long term (current) use of oral hypoglycemic drugs
CPT/HCPCS: 0240U; 36415; 36416; 51701; 70450; 71045; 80048; 80053; 81003; 81015; 82550; 82607; 82728; 82746; 83605; 83735; 84100; 84443; 85025; 85060; 85379; 86140; 86769; 87635; 93005; 96365; 96367; J0456; J0692; J0696; J1100; J1650; J2001; J2358; J2543; J2704; J3370; J3475; J3480; J3490; J7030; J7042; J7050; J8540; U0003; U0005